=== PATIENT | male | born 1975 | race Hispanic/Latino ===

== ENCOUNTER → 2020-07-30 | Day surgery (SDC) | payer MEDICARE ==
[2020-07-27 12:32] LABS: BASOPHILS % 0.3 % (0.0-1.0); EOSINOPHILS # (AUTO) 0.1 (0.0-0.4); EOSINOPHILS % 0.9 % (0.0-6.0); HEMATOCRIT 39.3 % (38.2-49.6); HEMOGLOBIN 12.7 g/dL (14.0-18.0); LYMPHOCYTES # (AUTO) 1.3 (1.0-3.2); LYMPHOCYTES % 13.1 % (18.0-39.1); MEAN CORPUSCULAR HEMOGLOBIN 29.1 pg (28-32); MEAN CORPUSCULAR HGB CONC 32.3 g/dL (31-35); MEAN CORPUSCULAR VOLUME 89.9 fL (81-99); MONOCYTES # (AUTO) 0.6 (0.2-0.8); MONOCYTES % 5.8 % (4.4-11.3); NEUTROPHILS # (AUTO) 7.6 (2.1-6.9); NEUTROPHILS % 78.9 % (38.7-80.0); PLATELET COUNT 159 x10e3/uL (140-360); RED BLOOD COUNT 4.37 x10e6/uL (4.3-5.7); RED CELL DISTRIBUTION WIDTH 13.6 % (11.7-14.4)
[2020-07-27 12:42] LABS: INR 0.94; PROTHROMBIN TIME 13.1 seconds (11.9-14.5)
[2020-07-27 12:43] LABS: PARTIAL THROMBOPLASTIN TIME 27.4 seconds (23.8-35.5)
[2020-07-27 12:47] LABS: ANION GAP 15.9 mmol/L (8-16); CALCIUM 8.5 mg/dL (8.4-10.2); CREATININE, SERUM 2.36 mg/dL (0.72-1.25); POTASSIUM 4.9 mmol/L (3.5-5.1)
--- NOTE | 2020-07-27 13:23 | Diagnostic Imaging Report ---
Exam: CHEST 2 VIEWS Date: 07/27/2020 1:19 PM INDICATION: ^[id number] ^[id number] ^PRE OP Comparison: None FINDINGS: Lines/Tubes:None Lungs:The lungs are well inflated. No focal consolidation or pulmonary edema. Pleura:No pleural effusion. No pneumothorax. Heart/Mediastinum:The cardiomediastinal silhouette is normal in size and contour. Bones/Soft Tissues: No acute osseous abnormality. Mild multilevel degenerative changes of the spine are noted. Upper abdomen: Unremarkable. IMPRESSION: Negative for acute intrathoracic process. Signed by: Devon Young MD on 07/27/2020 1:19 PM
[~2020-07-30] MED LIST: ALBUTEROL0.63 MG/3; ASPIRIN81 MG; CEFTRIAXONE SOD 1 GM/NS 50 ML 50 ML IV ONE; FENTANYL CITRATE/PF 100MCG/2 ML INJ ONE; GABAPENTIN100 MG; HUMULIN R100 UNIT/2; IBUPROFEN400 MG PO; LIDOCAINE HCL 1% LOCAL INJ 20 ML VIAL ONE; LIDOCAINE HCL 2% LOCAL INJ 5 ML SDV VIAL INJ ONE; METOPROLOL; MYCOPHENOLATE250 MG PO; MYFORTIC360 MG PO; NORCO 10-325 T1 EACH PO; ONDANSETRON HCL INJ 2MG/ML 2ML 2 MG/ML VIAL ONE; PAROXETINE HCL20 MG PO; PRAVACHOL20 MG PO; PROGRAF1 MG PO; PROPOFOL IV EMULSION 10 MG/ML 20 ML VIAL ONE; SEVOFLURANE INHAL SOLN 250 ML PEN BTL ONE; TACROLIMUS0.5 GM PO; VANCOMYCIN HCL 1 GM VIAL ONE
[2020-07-30 12:30] VITALS: BP 139/73
--- NOTE | 2020-08-06 08:07 | Operative Report ---
DATE OF PROCEDURE: 07/30/2020 SURGEON: Lambert [facility] MD PREOPERATIVE DIAGNOSIS: Organic erectile dysfunction. POSTOPERATIVE DIAGNOSIS: Organic erectile dysfunction. OPERATIVE PROCEDURE PERFORMED: Placement of malleable penile prosthesis. ANESTHESIA: General anesthesia. ESTIMATED BLOOD LOSS: Minimal. INDICATIONS: Mr. Humble Gilman is a 45-year-old man with multiple medical problems including blindness and diabetes who presents for management of his erectile dysfunction. PROCEDURE IN DETAIL: The patient was brought into the operating room, placed in supine position. After initiation of general anesthesia, was prepped and draped in the usual sterile fashion. A Sandhu catheter was placed to identify the urethra and the catheter was clamped after his bladder was drained. A penoscrotal incision was made sharply and dissection was carried out through the layers of the penis. The urethra was reflected first to the right and subsequent to the left. A 3 cm corporal incisions were made in both corporal bodies and the corporal body was dilated with first the Metzenbaum and subsequently with dilators. The corporal body in this patient dilated easily up to 10, but was taut just past this. The total length of the corporal body measured 18 cm. An 18 cm tactile malleable prosthesis was then placed without difficulty. There was good position and it appeared to fill the corporal body well. The corporal body was then closed with a running PDS stitch. This was done on both the right and left sides. The corporal bodies were copiously irrigated with antibiotic solution prior to closure. With the prosthesis in place, the penoscrotal incision was closed in layers. The skin being closed using a running Monocryl stitch. The wound was then cleaned and dried and covered with Mastisol, Steri-Strips and sterile Tegaderm dressing. Anesthesia was reversed and the patient was transferred to bed and taken to the postanesthesia care unit in good condition. Of note, the needle and instrument count were correct at the conclusion of the case. Lambert Henderson MD HLW/MODL /[id number]
== END | disposition home or self-care (01) ==
LOC: OR 05:13
PROVIDERS: ATTEND Urology
DX: N52.8 Other male erectile dysfunction (principal); E29.1 Testicular hypofunction; E11.9 Type 2 diabetes mellitus without complications; I10 Essential (primary) hypertension; D68.9 Coagulation defect, unspecified; R53.1 Weakness; M54.2 Cervicalgia; M54.9 Dorsalgia, unspecified; R42 Dizziness and giddiness; E78.5 Hyperlipidemia, unspecified; H54.7 Unspecified visual loss; Z88.0 Allergy status to penicillin; Z91.040 Latex allergy status; Z01.810 Encounter for preprocedural cardiovascular examination; Z01.812 Encounter for preprocedural laboratory examination; Z01.818 Encounter for other preprocedural examination; Z20.828 Contact with and (suspected) exposure to other viral communicable diseases; Z79.82 Long term (current) use of aspirin; Z79.4 Long term (current) use of insulin; Z68.35 Body mass index [BMI] 35.0-35.9, adult; Z94.0 Kidney transplant status
CPT/HCPCS: 36415; 54400; 71046; 80048; 85025; 85610; 85730; 93005; C2622; J0696; J2001 ×2; J2405; J2704; J3010; J3370; U0002

== ENCOUNTER 2020-08-09 12:24 | Inpatient (IN) | payer MEDICARE, OTHER ==
[~2020-08-09] VITALS: Ht 175.3 cm; Wt 111.7 kg
[~2020-08-09 12:24] MED LIST changes: -CEFTRIAXONE SOD 1 GM/NS 50 ML 50 ML IV ONE; -FENTANYL CITRATE/PF 100MCG/2 ML INJ ONE; -LIDOCAINE HCL 1% LOCAL INJ 20 ML VIAL ONE; -LIDOCAINE HCL 2% LOCAL INJ 5 ML SDV VIAL INJ ONE; -MYFORTIC360 MG PO; -ONDANSETRON HCL INJ 2MG/ML 2ML 2 MG/ML VIAL ONE; -PROGRAF1 MG PO; -PROPOFOL IV EMULSION 10 MG/ML 20 ML VIAL ONE; -SEVOFLURANE INHAL SOLN 250 ML PEN BTL ONE; -VANCOMYCIN HCL 1 GM VIAL ONE
--- NOTE | 2020-08-09 14:30 | NUR ---
PT TO THE FLOOR FROM [facility]. PT'S VITALS WNL. PT DENIES NEEDS AT THIS TIME.
--- OUTSIDE RECORDS SUMMARY | 2020-08-09 14:30 | XMS REPORT | Clinical Summary ---
Author Author [facility]BI [facility] Address Unknown Phone Unavailable Care Team Providers Care Front Desk Team Member Name Role Phone Marycarmen Vyas MD PCP Allergies Comments Active Allergy Reactions Severity Noted Date Accelerated rash >10 yrs Penicillins Rash High 10/20/2012 Medications End Date Status Medication Sig Dispensed Refills Start Date Active sulfamethoxazole-trimetho Take 1 tablet 14 tablet 0 prim (BACTRIM DS) 800-160 (160 mg of 3 mg per tablet trimethoprim total) by mouth 3 (three) times a week. Active mycophenolate (MYFORTIC) Take 4 240 tablet 11 0 180 MG EC tablet tablets (720 4 mg total) by mouth 2 (two) times daily. Active mycophenolate (MYFORTIC) Take 180 mg 0 180 MG EC tablet by mouth 3 (three) times daily . Active aspirin 81 MG EC tablet Take 81 mg by 0 mouth daily. Active tacrolimus (PROGRAF) 1 MG Take 1 90 capsule 6 capsule capsule (1 mg 5 total) by mouth 2 (two) times daily Take 1mg in am and 2mg in pm.. Active NIFEdipine (PROCARDIA-XL) Take 60 mg by 0 60 MG (OSM) 24 hr tablet mouth daily. Active omeprazole (PRILOSEC) 40 Take 40 mg by 0 MG capsule mouth daily. Active gabapentin (NEURONTIN) Take 300 mg 0 300 MG capsule by mouth 3 (three) times daily. Active insulin 70/30, insulin Inject 0 NPH-insulin regular, subcutaneousl (HUMULIN 70/30) 100 y 2 (two) unit/mL (70-30) InPn times daily insulin pen before meals SLIDING SCALE tid . 11/18/2019 Discontinued lthauwaq-vcdn-KY-calcium Take 1 tablet 30 tablet 3 &mins 9 mg iron-400 mcg by mouth 3 Tab daily. 11/18/2019 Discontinued predniSONE (DELTASONE) 10 Take 10 mg by 0 05/19 7/201 MG tablet mouth daily. 3 11/18/2019 Discontinued esomeprazole (NEXIUM) 40 Take 40 mg by 0 MG capsule mouth daily. 11/18/2019 Discontinued tamsulosin (FLOMAX) 0.4 Take 1 30 capsule 3 mg Cp24 24 hr capsule capsule (0.4 3 mg total) by mouth daily. 11/18/2019 Discontinued clotrimazole (MYCELEX) 10 Place 10 mg 0 mg linda inside cheek 3 (three) times daily. 11/18/2019 Discontinued pentamidine (PENTAM) 300 Inhale 300 mg 0 mg inhalation solution by mouth via inhaler every 30 (thirty) days. 11/18/2019 Discontinued predniSONE (DELTASONE) 5 Take 5 mg by 0 MG tabletIndications: S/P mouth daily. kidney transplant 11/18/2019 Discontinued valGANciclovir (VALCYTE) Take 450 mg 0 450 mg tablet by mouth 2 (two) times daily. 11/18/2019 Discontinued doxycycline (VIBRAMYCIN) Take 100 mg 0 100 MG capsule by mouth 2 (two) times daily. 11/18/2019 Discontinued tacrolimus (PROGRAF) 1 MG Take 3 mg by 0 capsule mouth 2 (two) times daily. 11/18/2019 Discontinued mupirocin (BACTROBAN) 2 % Apply 0 ointment topically 2 (two) times daily. 11/18/2019 Discontinued chlorhexidine (HIBICLENS) Apply 0 4 % external liquid topically daily as needed. 11/18/2019 Discontinued diphenhydrAMINE Take 50 mg by 0 (BENADRYL) 50 MG capsule mouth every night as needed for Itching. Active Problems Problem Noted Date Nausea 03/07/2015 S/P kidney transplant 03/07/2015 Axillary lump 02/27/2014 Last Assessment & Plan: Resolved, no evidence of LAD on CT. Diarrhea 11/20/2013 Last Assessment & Plan: Improving. Continue to follow Rash 08/21/2013 Last Assessment & Plan: Will refer to dermatology for further e valuation. Elevated serum creatinine 08/12/2013 PEDRO (acute kidney injury) 07/17/2013 Acidosis 07/17/2013 Anemia 07/17/2013 Lower urinary tract infectious disease 07/17/2013 Overview: UPDATED BY ICD10 SNOMED/IMO UPDATES Status post kidney transplant 07/17/2013 Overview: ICD9 DX [employer] L ast Assessment & Plan: Stable allograft function. Will re-dos e based on levels. Continued monitoring of immunosuppression and all ograft function per his gear changer. Immunosuppression 07/10/2013 Overview: Patient on Cyclosporine 200/200. Ran o ut of his meds last week and was left to taking 1/4 of his prescribed do se. Level of 57 when checked on 07/05. - Reinforced strict compliance with med ication regimen, will have child welfare social worker discuss alternative regimen for obtaining medications L ast Assessment & Plan: Will order tacrolimus levels and dose i mmunosuppression accordingly Anemia associated with chronic renal failure 013 Last Assessment & Plan: Stable, Hbg of 10.6 today Renal osteodystrophy 05/25/2013 Hypertension, benign 05/25/2013 Last Assessment & Plan: Hemodynamically stable. continue curren t antihypertensive regimen DM (diabetes mellitus) Last Assessment & Plan: Continue tight blood glucose control wi th adherence to current medication regimen. HTN (hypertension) Last Assessment & Plan: Good control on current regimen. Deidra nue, with alteration per Dr. Vyas's recommendation. Blind History of tissue graft Overview: ICD9 DX [employer] Worker Encounters Care Team Description Date Type Specialty Marycarmen Vyas MD Pain in transplanted kidney 07/23/2020 [facility] Radiology Encounter System, Provider Not In Pain in transplanted kidney (Primary Dx) 07/20/2020 Outside Orders Central Scheduling Marycarmen Vyas MD Acute renal failure, unspecified acute r enal failure type (HCC) 11/18/2019 Hospital Encounter Marycarmen Vyas MD Acute renal failure, unspecified acute r enal failure type (HCC) (Primary Dx) 11/13/2019 Outside Orders Central Scheduling after 08/09/2019 Family History Medical History Relation Name Comments Diabetes Brother Diabetes Father Hypertension Father Diabetes Mother Diabetes Sister Relation Name Status Comments Brother Father Mother Sister Social History Date Tobacco Use Types Packs/Day Years Used Never Smoker Smokeless Tobacco: Never Used Drinks/Week oz/Week Comments Alcohol Use No Sex Assigned at Date Recorded Not on file Last Filed Vital Signs Reading Time Taken Comments Vital Sign 136/73 11/18/2019 2:00 PM [employer] Blood Pressure 68 11/18/2019 2:00 PM [employer]CH[employer] Pulse 36.6 C (97.9 F) 11/18/2019 11:08 AM [employer]ACHINE [employer]CH[employer] Temperature 13 11/18/2019 2:00 PM [employer]CH[employer] Respiratory Rate 99% 11/18/2019 2:00 PM [employer]CH[employer]IC Oxygen Saturation - - Inhaled Oxygen Concentration 108.3 kg (238 lb 11.2 oz) 11/18/2019 8:41 AM [employer]ACHINE MECH[employer]IC Weight 175.3 cm (5' 9") 11/18/2019 8:41 AM [employer] MACHINE MECH[employer]IC Height 35.25 11/18/2019 8:41 AM [employer]ACHINE MECH[employer]IC Body Mass Index Plan of Treatment Health Maintenance Due Date Last Done Comments PNEUMOCOCCAL VACCINE 0-64 1980 YRS (1 of 3 - PCV13) DIABETIC EYE EXAM 1984 DIABETIC FOOT EXAM 1984 URINE MICROALBUMIN 1984 MEDICARE ANNUAL WELLNESS 01/17/2009 (YEAR 2 or FIRST YEAR if no IPPE) LIPID PANEL 2009 HEMOGLOBIN A1C 01/17/2014 07/20/2013, 07/17/2012 INFLUENZA VACCINE (#1) 2020 Implants Device Identifier Shelf Expiration Date Model / Serial / L ot Implanted Type Area Manufactur er [id number] / / [id number] Stent,Uret Polaris 5fr X 10cm - Uro Stent Ureter [employer] [id number] [employer] Implanted: Qty: 1 on 05/26/2013 by Chiara Amaral MD at [facility] Procedures Comments Procedure Name Priority Date/Time Associated Diag nosis US TRANSPLANT KIDNEY Routine 07/23/2020 11:30 AM [employer]ACHINE [employer]CH[employer]IC CBC W/PLT COUNT & AUTO Routine 11/18/2019 DIFFERENTIAL 9:33 AM [employer]ACHINE MECH[employer]IC CBC W/PLT COUNT & AUTO Routine 11/18/2019 DIFFERENTIAL 9:33 AM [employer] MACHINE MECH[employer]IC APTT Routine 11/18/2019 9:33 AM [employer] MACHINE MECHANIC PROTHROMBIN TIME/INR Routine 11/18/2019 9:33 AM [employer]AK[employer] MACHINE MECHANIC after 08/09/2019 Results * US transplant kidney (07/23/2020 11:30 AM BAKERY MACHINE MECHANIC) Specimen Narrative Performed At FINAL REPORT [facility] TECHNIQUE: Grayscale, color Doppler, an d spectral Doppler ultrasound of the transplant kidney and renal vasc ulature. INDICATION: 45-year-old man with other complication of kidney transplant. COMPARISON: Renal transplant ultrasound 03/07/2015. FINDINGS: TRANSPLANT KIDNEY: Transplant kidney is located in the right lower quadrant and measures 12 x 6.9 x 5.7 cm with cortical thickness of 1.4 cm. No hydronephrosis. No solid mas s. No perinephric fluid collection. VASCULATURE: Iliac artery, arterial ivory stomosis, and renal artery are patent with peak systolic velocities of 136 cm/s, 131 cm/s, and 82 cm/s, respectively. Resistive indices t hroughout the transplant kidney are within normal limits. Accele ration times throughout the transplant kidney are within normal daley its. Renal vein, venous anastomosis, and iliac vein are patent. BLADDER: Unremarkable. IMPRESSION: Unremarkable appearance of the transpla nt kidney. Unremarkable Doppler evaluation of the renal vasculature. Signed: Beena Mariscal MD Report Verified Date/Time: 07/23/2020 13:48:56 Procedure Note Interface, External Ris In - 07/23/2020 1:51 PM [employer]ACHINE MECH[employer]IC FINAL REPORT TECHNIQUE: Grayscale, color Doppler, and spectral Doppler ultrasound of the transplant kidney and renal vasculature. INDICATION: 45-year-old man with other complication of kidney transplant. COMPARISON: Renal transplant ultrasound 03/07/2015. FINDINGS: TRANSPLANT KIDNEY: Transplant kidney is located in the right lower quadrant and measures 12 x 6.9 x 5.7 cm with cortical thickness of 1.4 cm. No hydronephrosis. No solid mass . No perinephric fluid collection. VASCULATURE: Iliac artery, arterial anastomosis, and renal artery are patent with peak systolic velocities of 136 cm/s, 131 cm/s, and 82 cm/s, respectively. Resistive indices throughout the transplant kidney are within normal limits. Acceleration times throughout the transplant kidney are within normal limits. Renal vein, venous anastomosis, and iliac vein are patent. BLADDER: Unremarkable. IMPRESSION: Unremarkable appearance of the transplant kidney. Unremarkable Doppler evaluation of the renal vasculature. Signed: Beena Mariscal MD Report Verified Date/Time: 07/23/2020 13:48:56 Performing Organization Address City/State/Zipcode Ph one Number GE RIS * CBC with platelet count + automated diff (11/18/2019 9:33 AM BAKERY MACHINE MECHANIC) WBC 7.2 3.5 - 10.5 K/L [facility] RBC 4.89 4.63 - 6.08 M/L [facility] Hemoglobin 13.9 13.7 - 17.5 GM/DL [facility] Hematocrit 42.5 40.1 - 51.0 % [facility] MCV 86.9 79.0 - 92.2 fL [facility] MCH 28.4 25.7 - 32.2 pg [facility] MCHC 32.7 32.3 - 36.5 GM/DL [facility] RDW 14.1 11.6 - 14.4 % [facility] Platelets 148 (L) 150 - 450 K/CU MM [facility] MPV 11.7 9.4 - 12.4 fL [facility] nRBC 0 0 - 0 /100 WBC [facility] % Neutros 66 % [facility] % Lymphs 22 % [facility] % Monos 9 % [facility] % Eos 2 % [facility] % Baso 0 % [facility] # Neutros 4.70 1.78 - 5.38 K/L [facility] # Lymphs 1.60 1.32 - 3.57 K/L [facility] # Monos 0.63 0.30 - 0.82 K/L [facility] # Eos 0.17 0.04 - 0.54 K/L [facility] # Baso 0.02 0.01 - 0.08 K/L [facility] Immature 0 0 - 1 % [facility] Specimen Blood Performing Organization Address City/[facility] Ph one Number [address] [facility] * aPTT (11/18/2019 9:33 AM BAKERY MACHINE MECHANIC) PTT 29.1 22.5 - 36.0 seconds [facility] Specimen Blood Performing Organization Address [facility] one Number [address] [facility] * Prothrombin time/INR (11/18/2019 9:33 AM BAKERY MACHINE MECHANIC) Protime 13.8 11.9 - 14.2 seconds [facility] INR 1.1 <=5.9 [facility] Specimen Blood Narrative Performed At Effective 02/13/2019: PT Reference Range Change [facility] New: 11.9-14.2 Previous: 11.7-14.7 [facility] MEDICAL TITI TER RECOMMENDED COUMADIN/WARFARIN INR THERA PY RANGES STANDARD DOSE: 2.0-3.0 Includes: PROP HYLAXIS for venous thrombosis, systemic embolization; TREATMENT for venous thro mbosis and/or pulmonary embolus. HIGH RISK: Target INR is 2.5-3.5 for pa tients wiht mechanical heart valves. Performing Organization Address [facility] Ph one Number [address] [facility] after 08/09/2019 Insurance Type Payer Benefit Subscriber ID Effective Phone Address Plan / Dates Group Medicare MEDICARE MEDICARE A [id number] 2008-P B resent Medicaid Non-Contracted MEDICAID - MEDICAID MGD MEDICAID [id number] [employer] Present Advance Directives For more information, please contact: [phone] Date Inactivated Comments Code Status Date Activated 03/08/2015 11:40 PM Full Code 03/07/2015 11:17 AM This code status was determined by: Patient 08/15/2013 12:01 AM All possible means of suppor t, including: cardiac massage, mechanical ventilation, and defibrillation will be used to support life. Code ONE 08/12/2013 9:04 PM 08/02/2013 9:24 PM All possible means of suppor t, including: cardiac massage, mechanical ventilation, and defibrillation will be used to support life. Code ONE 07/31/2013 1:13 PM 07/31/2013 1:13 PM All possible means of suppor t, including: cardiac massage, mechanical ventilation, and defibrillation will be used to support life. Code ONE 07/19/2013 2:12 PM 07/19/2013 2:12 PM All possible means of suppor t including;cardiac massage, mechanical ventilation, and defibrillation will be used to support life. Code ONE 07/18/2013 6:40 PM
--- OUTSIDE RECORDS SUMMARY | 2020-08-09 14:30 | XMS REPORT | Continuity of Care Document ---
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 Role Phone [employer] Unavailable Un available Problems Problem Status Onset Date Classification Date Reported Comments Source Insomnia, unspecified Active Problem 06/17/2016 [place] Santiago Diabetes with renal manifestations, type II or unspecified type, uncontrolled Active Problem 06/17/2016 [place] Sn[place]ago End stage renal disease Active Problem 06/17/2016 Modesto Santiago Polyneuropathy in diabetes Act chrissy Problem Mod[place] Santiago Nephritis and nephropathy, not specified as acute or chronic, with other specified pathological lesion in kidney, in diseases classified elsewhere Active Prob aristides 06/17/2016 Modesto Santiago Diabetes with neurological manifestation s, type II or unspecified type, uncontrolled Active Problem 06/17/2016 Modesto Santiago Acute frontal sinusitis Active Problem 06/17/2016 Modesto Santiago Cellulitis and abscess of leg, except foot Active Problem 06/17/2016 Modesto Santiago Hypertensive chronic kidney disease, jeana ign, with chronic kidney disease stage I through stage IV, or unspecified Active Problem Modesto Santiago Other iatrogenic hypotension A ctive Problem Modesto Santiago Generalized anxiety disorder A ctive Problem Modesto Santiago Dizziness Active Problem 06/17/2016 Modesto Santiago Acute pharyngitis Active Problem 06/17/2016 Modesto Santiago Hearing loss Active Problem 06/17/2016 Modesto Santiago Congestive heart failure, unspecified Active Problem Modesto Santiago Benign hypertensive heart disease with heart failure Active Problem 06/17/2016 Modesto Santiago Cellulitis and abscess of leg Active Problem Modesto Santiago Methicillin resistant Staphylococcus aureus infection Active Problem 06/17/2016 Modesto Santiago Insomnia Active Problem 06/17/2016 Modesto Santiago Skin lesion, infected Active Problem 06/17/2016 Modesto Santiago Skin lesions Active Problem 06/17/2016 Modesto Santiago Blindness Active Problem 06/17/2016 Modesto Santiago Abscess of back Active Problem 06/17/2016 Modesto Santiago Type II or unspecified type diabetes jignesh litus without mention of complication, not stated as uncontrolled Active Problem Modesto Santiago End-stage renal disease Active Problem 06/17/2016 Modesto Santiago Abscess of right axilla Active Problem 06/17/2016 Modesto Santiago Orthostatic hypotension Active Problem 06/17/2016 Modesto Santiago Renal transplant recipient Act chrissy Problem Modesto Santiago Peripheral angiopathy in diseases classified elsewhere Active Problem 06/17/2016 Modesto Santiago DM circ dis type II Active Problem 06/17/2016 Modesto Santiago Toe amputation status Active Problem 06/17/2016 Modesto Santiago Diarrhea Active Problem 06/17/2016 Modesto Santiago Impotence of organic origin Ac tive Diagnosis 0 02/04/2014 Modesto Santiago Esophageal reflux Active Problem 06/17/2016 Modesto Santiago Dermatitis Active Problem 06/17/2016 Modesto Santiago Abscess of buttock Active Problem 06/17/2016 Modesto Santiago Essential (primary) hypertension Active Problem Modesto Santiago DM neuro manif type II Active Problem 06/17/2016 Modesto Santiago Polyneuropathy in diabetes Act chrissy Problem Modesto Santiago Candidiasis of skin and nails Active Problem Modesto Santiago Otalgia of right ear Active Problem 06/17/2016 Modesto Santiago Candidiasis Active Problem 06/17/2016 Modesto Santiago Muscle weakness (generalized) Active Problem Modesto Santiago Carpal tunnel syndrome of right wrist Active Problem Modesto Santiago Otitis externa Active Problem 06/17/2016 Modesto Santiago Generalized muscle weakness Ac tive Diagnosis 0 02/06/2016 Modesto Santiago Hidradenitis Active Diagnosis 02/06/2016 Modesto Santiago Otalgia of both ears Active Problem 06/17/2016 Modesto Santiago Eye socket infection Active Problem 06/17/2016 Modesto Santiago Left otitis media Active Problem 06/17/2016 Modesto Santiago Furuncle Active Diagnosis 05/12/2016 Modesto Santiago Medications Medication Details Route Status Patient Instructions Ordering Provider Order Date Source Myfortic 3 tablet Orally Active 180 MG Orally twice a d ay (bid[facility]/15/[facility] [place] Santiago Diphen/Atropine 1 tablet as ne eded for diarrhea Orally Active 2.5 Orally twice a day [facility] 04/20/2016 Modesto Santiago Ibuprofen 1 tablet Orally Active 600 Orally Three times a day every 6 hours PRN Pain [facility] 04/19/2016 Mod[place] Santiago Azithromycin 2 tablets on the first day, then 1 tablet daily for 4 days Orally Active 250 MG Orally Once a day [facility] 04/19/2016 Modesto Santiago Fluconazole 1 tablet Orally Active 200 MG Orally Once a da y [facility] 02/05/2016 Mod[place] Santiago Gabapentin 1 capsule Orally Active 100 mg Orally three sawyer es a day (tid) [facility] 02/05/2016 Modesto Santiago Bactrim DS 1 tablet Orally Active 800-160 MG Orally Twice a day [facility] 02/05/2016 Modesto Santiago Nystatin 1 application to affe cted area Externally Active 670549 UNIT/GM Externally Twice a day [facility] 02/05/2016 Modesto Santiago Nystop 1 to affected area Externally Active 397809 UNIT/GM Externally Twice a day [facility] 01/08/2016 Modesto Santiago Triamcinolone Acetonide 1 appl ication to affected area Externally Active 0.5 % Externally Twice a day [facility] 11/17/2015 Modesto Santiago Pen Clio 01/31" as directed NA Active 30G X 8 MM twice a day (bid) [facility] 10/20/2015 Modetso Santiago Midodrine HCl 1 tablet Orally Active 2.5 MG Orally Three sawyer es a day [facility] 10/13/2015 Modesto Santiago Bactrim DS 1 tablet Orally Active 800-160 MG Orally twice a day (bid[facility] 04/30/2015 [place] Santiago Trazodone HCl 1 tablet Orally Active 50 mg Orally once every night [facility] 01/12/2015 Modesto Santiago Mupirocin 1 application to aff ected area Externally Active 2 % Externally twice a day (bid) [facility] 01/12/2015 Modesto Santiago Gmate Test Strips as directed NA Active testing 3-4 times per d ay [facility] 12/25/2014 Modesto Santiago Cholestyramine 1 packet mixed with water or non- carbonated drink Orally Active 4 GM Orally Twice a day [facility] 10/20/2014 Modesto Santiago Meclizine HCl 1 tablet Orally Active 25 MG Orally four times a day (qid) as needed (prn) for dizziness [facility] 09/05/2014 Modesto Santiago Sulfamethoxazole-TMP DS 1 tabl et Orally Active 800-160 MG Orally twice a day (bid) [facility] 02/13/2014 Modesto Santiago Viagra 1 tablet as needed Orally Active 50 mg Orally Once a day [facility] 02/03/2014 Modesto Santiago One Touch/One Touch II Starter as directed In Vitro Active In Vitro [facility] 11/25/2013 Modesto Santiago One Touch/One Touch II Starter as directed In Vitro Active [facility] 11/25/2013 Modesto Santiago Zithromax Z-Mukund 2 tablets on the first day, then 1 tablet daily for 4 days Orally Active 250 MG Orally Once a day [facility] 07/17/2013 Modesto Santiago Dextromethorphan-Guaifenesin 5 ml as needed Orally Active 15-200 MG/5ML Orally every 6 hrs for cough [facility] 07/17/2013 [place] Santiago Levemir Flexpen as directed Subcutaneous Active 100 UNIT/ML Subcutaneous [facility] 06/24/2013 Modesto Santiago NovoLog Mix 70/30 Flexpen 30u am, 25u qpm Subcutaneous Active (70-30) 100 UNIT/ML Subcutaneous as directed [facility] 04/23/2013 Modesto Santiago Kionex as directed Orally Active 15 GM/60ML Orally [facility] Noe hael E [facility] Clotrimazole 1 linda Mouth/Throat Active 10 MG Mouth/Throat Three times a day [facility] Mod[place] Green [facility] Nexium 1 capsule Orally Active 40 MG Orally Once a day [facility] Noe hael E [facility] Carvedilol 1 tablet with food Orally Active 25 MG Orally Twice a day [facility] Mod[place] Green [facility] Myfortic 4 tablet Orally Active 180 MG Orally twice a d ay (bid) [facility] Modesto E [facility] HydrALAZINE HCl 1 tablet Orally Active 100 mg Orally three sawyer es a day (tid) [facility] Modesto Green [facility] Terazosin HCl 1 capsule Orally Active 5 MG Orally Once a day [facility] Mod[place] Green [facility] Sulfamethoxazole-TMP DS 1 tabl et Orally Active 800-160 MG Orally every day (qd) [facility] Mod[place] Green [facility] PredniSONE 1 tablet with food or milk Orally Active 5 MG Orally Once a day [facility] Modesto Porrasxbterri Meclizine HCl 1 tablet Orally Active 25 MG Orally four times a day (qid) as needed (prn) for dizziness [facility] [place] Green [facility] Sodium Bicarbonate 1 tablet Orally Active 650 MG Orally Three times a day [facility] [place] Green [facility] Linezolid 1 tablet Orally Active 600 MG Orally every 12 hrs [facility] Mod[place] Green [facility] Aspir-81 1 tablet Orally Active 81 MG Orally Once a day [facility] Noe hael E [facility] Prograf Unknown Orally Active 1 MG Orally [facility] Noe hael E [facility] Humalog Mix 75/25 KwikPen 30 U nits in the morning and 30 units in the evening Subcutaneous Active (75-25) 100 UNIT/ML Sub cutaneous as directed [facility] Mod[place] Green [facility] Pravastatin Sodium 1 tablet Orally Active 40 MG Orally Once a day [facility] Modesto E [facility] Bactrim DS 1 tablet Orally Active 800-160 MG Orally Twice a day [facility] Modesto E [facility] NIFEdipine ER Osmotic tome jose a tableta todos los martino Oral Active 60 MG Oral Once a day [facility] [place] Green [facility] Ciprodex 4 drops into affected ear Otic Active 0.3-0.1 % Otic Twice a day [facility] Modesto Peter [facility] Hydrocodone-Acetaminophen 1 ta blet as needed Orally Active 10-325 MG Orally every 6 hrs [facility] [place] Green [facility] Clindamycin HCl 2 capsules Orally Active 150 MG Orally every 8 hrs [facility] [place] Green [facility] Meclizine HCl TOME JOSE A TABLETA POR VIA ORAL CUATRO VECES AL INO CUANDO SEA NECESARIO NA Active 25 MG [facility] [place] Green [facility] Allergies, Adverse Reactions, Alerts Substance Category Reaction Severity Reaction type Status Date Reported Comments Source penicillin Adverse Reaction Info Not Available Adverse Reaction Active 05/10/2016 [place] Peter [facility] Immunizations No Data Provided for This Section Results No Data Provided for This Section Pathology Reports No Data Provided for This Section Diagnostic Reports No Data Provided for This Section Consultation Notes No Data Provided for This Section Discharge Summaries No Data Provided for This Section History and Physicals No Data Provided for This Section Vital Signs Vital Sign Value Date Comments Source Weight 230 05/10/2016 [place] Porrasxbaum Height 69 0 05/10/2016 [place] E [facility] Temperature Oral (F) 96.1 F 05/10/2016 [place] Peter [facility] Heart Rate 72 05/10/2016 [place] E [facility] Diastolic (mm Hg) 74 05/10/2016 [place] E [facility] Systolic (mm Hg) 128 05/10/2016 [place] Green [facility] Weight 230 04/19/2016 [place] Green [facility] Height 69 0 04/19/2016 [place] E [facility] Temperature Oral (F) 97.1 F 04/19/2016 [place] Peter [facility] Heart Rate 74 04/19/2016 [place] E [facility] Diastolic (mm Hg) 84 04/19/2016 [place] E [facility] Systolic (mm Hg) 136 04/19/2016 [place] Green [facility] Weight 215 02/05/2016 [place] E [facility] Height 69 0 02/05/2016 [place] E [facility] Temperature Oral (F) 97.1 F 02/05/2016 [place] E [facility] Heart Rate 82 02/05/2016 [place] E [facility] Diastolic (mm Hg) 86 02/05/2016 [place] E [facility] Systolic (mm Hg) 126 02/05/2016 [place] E [facility] Weight 215 01/08/2016 [place] E [facility] Height 69 0 01/08/2016 [place] E [facility] Temperature Oral (F) 97.8 F 01/08/2016 [place] E [facility] Heart Rate 84 01/08/2016 [place] E [facility] Diastolic (mm Hg) 68 01/08/2016 [place] E [facility] Systolic (mm Hg) 134 01/08/2016 [place] E [facility] Weight 215 11/17/2015 [place] E [facility] Height 69 0 11/17/2015 [place] E [facility] Temperature Oral (F) 96.8 F 11/17/2015 [place] E [facility] Heart Rate 82 11/17/2015 [place] E [facility] Diastolic (mm Hg) 86 11/17/2015 [place] E [facility] Systolic (mm Hg) 126 11/17/2015 [place] E [facility] Weight 231 04/30/2015 [place] E [facility] Height 69 0 04/30/2015 [place] E [facility] Temperature Oral (F) 98.0 F 04/30/2015 [place] E [facility] Heart Rate 72 04/30/2015 [place] E [facility] Diastolic (mm Hg) 72 04/30/2015 [place] E [facility] Systolic (mm Hg) 118 04/30/2015 [place] E [facility] Weight 230 09/05/2014 [place] E [facility] Height 69 1 11/06/2013 [place] E [facility] Temperature Oral (F) 97.8 F 09/05/2014 [place] E [facility] Heart Rate 66 09/05/2014 [place] E [facility] Diastolic (mm Hg) 84 09/05/2014 [place] E [facility] Systolic (mm Hg) 126 09/05/2014 [place] E [facility] Weight 228 02/03/2014 [place] E [facility] Height 69 0 02/03/2014 [place] E [facility] Temperature Oral (F) 98.7 F 02/03/2014 [place] E [facility] Heart Rate 64 02/03/2014 [place] E [facility] Diastolic (mm Hg) 82 02/03/2014 [place] E [facility] Systolic (mm Hg) 120 02/03/2014 [place] E [facility] Weight 215 11/22/2013 [place] E [facility] Height 69 0 11/22/2013 Mod[place] Santiago Temperature Oral (F) 97.8 F 11/22/2013 Mod[place] Santiago Heart Rate 64 11/22/2013 Modesto Santiago Diastolic (mm Hg) 84 11/22/2013 Modesto Santiago Systolic (mm Hg) 122 11/22/2013 Modesto Santiago Weight 215 11/22/2013 Modesto Santiago Height 69 0 11/22/2013 Modesto Santiago Temperature Oral (F) 97.8 F 11/22/2013 Modesto Santiago Heart Rate 64 11/22/2013 Modesto Santiago Diastolic (mm Hg) 84 11/22/2013 Modesto Santiago Systolic (mm Hg) 122 11/22/2013 Modetso Santiago Encounters Location Location Details Encounter Type Encounter Number Reason For Visit Attending Provider ADM Date DC Date Status Source Modesto Santiago DO, PA [employer] supplies [id number] 11/23/19 14 11/22/2013 Modesto Santiago DO, [place] [employer] [id number] 11/23/19 14 11/22/2013 Modesto Santiago DO, PA [employer] [id number] 11/23/19 14 11/22/2013 Modesto Santiago DO, [place] [employer] supplies [id number] 11/23/19 14 11/22/2013 Modesto Santiago DO, PA [employer] supplies [id number] 11/23/19 14 11/22/2013 Modesto Santiago DO, PA [employer] supplies [id number] 11/23/19 14 11/22/2013 Modesto Santiago DO, [place] [employer] supplies [id number] 11/23/19 14 11/22/2013 Modesto Santiago DO, PA [employer]me supplies [id number] 11/23/19 14 11/22/2013 Modesto Santiago DO PA dme supplies [id number] 11/23/19 14 11/22/2013 Modesto Santiago DO PA dme supplies [id number] 11/23/19 14 11/22/2013 Modesto Santiago DO PA dme supplies [id number] 11/23/19 14 11/22/2013 Modesto Santiago DO PA dme supplies [id number] 11/23/19 14 11/22/2013 Modesto Santiago DO PA dme supplies [id number] 11/23/19 14 11/22/2013 Modesto Santiago DO PA dme supplies [id number] 11/23/19 14 11/22/2013 Modesto Santiago DO PA dme supplies [id number] 11/23/19 14 11/22/2013 Modesto Santiago DO PA dme supplies [id number] 11/23/19 14 11/22/2013 Modesto Santiago DO PA dme supplies [id number] 11/23/19 14 11/22/2013 Modesto Santiago DO PA dme supplies [id number] 11/23/19 14 11/22/2013 Modesto Santiago DO PA dme supplies [id number] 11/23/19 14 11/22/2013 Modesto Santiago DO PA dme supplies [id number] 11/23/19 14 11/22/2013 Modesto Santiago DO PA dme supplies [id number] 11/23/19 14 11/22/2013 Modesto Santiago DO PA dme supplies [id number] 11/23/19 14 11/22/2013 Modesto Santiago DO, PA dme supplies [id number] 11/23/19 14 11/22/2013 Modesto Santiago DO PA dme supplies [id number] 11/23/19 14 11/22/2013 Modesto Santiago DO PA dme supplies [id number] 11/23/19 14 11/22/2013 Modesto Green. Isirenate DO, PA Unknown [id number] 11/26/19 14 11/25/2013 Modesto Snowdenrenate Obrien Isirenate DO, PA Unknown [id number] 11/26/19 14 11/25/2013 [place] Salvador Camille Isirenate DO, PA Unknown [id number] 11/26/19 14 11/25/2013 Modesto Santiago DO, PA Unknown [id number] 11/26/19 14 11/25/2013 Modesto Santiago DO, [place] Unknown [id number] 11/26/19 14 11/25/2013 [place] Salvador Camille Pamela DO, PA Unknown [id number] 11/26/19 14 11/25/2013 [place] Salvador PeterPreeti Santiago DO, PA Unknown [id number] 11/26/19 14 11/25/2013 Modesto Santiago DO, PA Unknown [id number] 11/26/19 14 11/25/2013 Modesto Santiago DO, [place] Unknown [id number] 11/26/19 14 11/25/2013 Modesto Santiago DO, PA Unknown [id number] 11/26/19 14 11/25/2013 Modesto Delunaaurenate Modesto Camille Isirenate DO, PA Unknown [id number] 11/26/19 14 11/25/2013 [place] Peter Isirenate Obrien Isirenate DO, PA Unknown [id number] 11/26/19 14 11/25/2013 Modesto Snowdenrenate Modesto GrenePreeti Isirenate DO, PA Unknown [id number] 11/26/19 14 11/25/2013 [place] GrenePreeti Isirenate DO, PA Unknown [id number] 11/26/19 14 11/25/2013 Modesto Snowdenrenate Modesto GreenPreeti Isirenate DO, PA Unknown [id number] 11/26/19 14 11/25/2013 Modesto Snowdenrenate Modesto Snowdenrenate DO, PA Unknown [id number] 11/26/19 14 11/25/2013 [place] Peter Isirenate Obrien Isirenate DO, PA Unknown [id number] 11/26/19 14 11/25/2013 Modesto Snowdenrenate Modesto Snowdenrenate DO, PA Unknown [id number] 11/26/19 14 11/25/2013 Modesto Santiago DO, PA Unknown [id number] 11/26/19 14 11/25/2013 Modesto Santiago DO, PA Unknown [id number] 11/26/19 14 11/25/2013 Modesto Santiago DO, PA Unknown [id number] 11/26/19 14 11/25/2013 Modesto Santiago DO, PA Unknown [id number] 11/26/19 14 11/25/2013 Modesto Santiago DO, PA Unknown [id number] 11/26/19 14 11/25/2013 Modesto Santiago DO, PA Unknown [id number] 11/26/19 14 11/25/2013 Modesto Santiago DO, PA sore throat [id number] 02/04/20 14 02/03/2014 Modesto Santiago DO, PA sore throat [id number] 02/04/20 14 02/03/2014 Modesto Santiago DO, PA sore throat [id number] 02/04/20 14 02/03/2014 Modesto Santiago DO, PA sore throat [id number] 02/04/20 14 02/03/2014 Modesto Santiago DO, PA sore throat [id number] 02/04/20 14 02/03/2014 Modesto Santiago DO, PA sore throat [id number] 02/04/20 14 02/03/2014 Modesto Santiago Modesto GreenPreeti Snowdenrenate DO, PA sore throat [id number] 02/04/20 14 02/03/2014 Modesto Santiago DO, PA sore throat [id number] 02/04/20 14 02/03/2014 Modesto Santiago DO, PA sore throat [id number] 02/04/20 14 02/03/2014 Modesto Santiago DO, PA sore throat [id number] 02/04/20 14 02/03/2014 Modesto Santiago DO, PA sore throat [id number] 02/04/20 14 02/03/2014 Modesto Santiago DO, PA sore throat [id number] 02/04/20 14 02/03/2014 Modesto Santiago DO, PA sore throat [id number] 02/04/20 14 02/03/2014 Modesto Santiago DO, PA sore throat [id number] 02/04/20 14 02/03/2014 Modesto Santiago DO, PA sore throat [id number] 02/04/20 14 02/03/2014 Modesto Santiago DO, PA sore throat [id number] 02/04/20 14 02/03/2014 Modesto Santiago DO, PA sore throat [id number] 02/04/20 14 02/03/2014 Modesto Santiago DO, PA sore throat [id number] 02/04/20 14 02/03/2014 Modesto Santiago DO, PA sore throat [id number] 02/04/20 14 02/03/2014 Modesto Santiago DO, PA sore throat [id number] 02/04/20 14 02/03/2014 Modesto Santiago DO, PA sore throat [id number] 02/04/20 14 02/03/2014 Modesto Santiago DO, PA sore throat [id number] 02/04/20 14 02/03/2014 Modesto Santiago DO, PA sore throat [id number] 02/04/20 14 02/03/2014 Modesto Santiago DO, [place] Hearing loss [id number] 09/05/20 14 09/05/2014 Modesto Santiago DO, PA Hearing loss [id number] 09/05/20 14 09/05/2014 Modesto Santiago DO, PA Hearing loss [id number] 09/05/20 14 09/05/2014 Modesto Santiago DO, PA Hearing loss [id number] 09/05/20 14 09/05/2014 Modesto Santiago DO, PA Hearing loss [id number] 09/05/20 14 09/05/2014 Modesto Santiago DO, PA Hearing loss [id number] 09/05/20 14 09/05/2014 Modesto Santiago DO, PA Hearing loss [id number] 09/05/20 14 09/05/2014 Modesto Santiago DO, PA Hearing loss [id number] 09/05/20 14 09/05/2014 Modesto Santiago DO, PA Hearing loss [id number] 09/05/20 14 09/05/2014 Modesto Santiago DO, PA Hearing loss [id number] 09/05/20 14 09/05/2014 Modesto Santiago DO, PA Hearing loss [id number] 09/05/20 14 09/05/2014 Modesto Sanitago DO, PA Hearing loss [id number] 09/05/20 14 09/05/2014 Modesto Santiago DO, PA Hearing loss [id number] 09/05/20 14 09/05/2014 Modesto Santiago DO, PA Hearing loss [id number] 09/05/20 14 09/05/2014 Modesto Santiago DO, PA Hearing loss [id number] 09/05/20 14 09/05/2014 Modesto Santiago DO, PA Hearing loss [id number] 09/05/20 14 09/05/2014 Modesto Santiago DO, PA Hearing loss [id number] 09/05/20 14 09/05/2014 Modesto Santiago DO, PA Hearing loss [id number] 09/05/20 14 09/05/2014 Modesto Santiago DO, PA Hearing loss [id number] 09/05/20 14 09/05/2014 Modesto Santiago DO, PA Hearing loss [id number] 09/05/20 14 09/05/2014 Modesto Santiago DO, PA Hearing loss [id number] 09/05/20 14 09/05/2014 Modesto Santiago DO, PA Hearing loss [id number] 09/05/20 14 09/05/2014 Modesto Santiago DO, PA Refill [id number] 10/20/19 15 10/20/2014 Modesto Santiago DO, [place] Refill [id number] 10/20/19 15 10/20/2014 Modesto Santiago DO, PA Refill [id number] 10/20/19 15 10/20/2014 Modesto Santiago DO, PA Refill [id number] 10/20/19 15 10/20/2014 Modesto Santiago DO, PA Refill [id number] 10/20/19 15 10/20/2014 Modesto Santiago DO, [place] Refill [id number] 10/20/19 15 10/20/2014 Modesto Santiago DO, [place] Refill [id number] 10/20/19 15 10/20/2014 Modesto Santiago DO, [place] Refill [id number] 02/02/10/20/2014 Modesto Santiago DO, [place] Refill [id number] 10/20/19 15 10/20/2014 Modesto Santiago DO, [place] Refill [id number] 10/20/19 15 10/20/2014 Modesto Santiago DO, PA Refill [id number] 10/20/19 15 10/20/2014 Modesto Santiago DO, PA Refill [id number] 10/20/19 15 10/20/2014 Modesto Santiago DO, [place] Refill [id number] 10/20/19 15 10/20/2014 Modesto Santiago DO, [place] Refill [id number] 10/20/19 15 10/20/2014 Modesto Santiago DO, [place] Refill [id number] 10/20/19 15 10/20/2014 Modesto Santiago DO, [place] Refill [id number] 10/20/19 15 10/20/2014 Modesto Santiago DO, [place] Refill [id number] 10/20/19 15 10/20/2014 Modesto Santiago DO, [place] Refill [id number] 10/20/19 15 10/20/2014 Modesto Santiago DO, [place] Refill [id number] 10/20/19 15 10/20/2014 Modesto Santiago DO, [place] Refill [id number] 10/20/19 15 10/20/2014 Modesto Santiago DO, [place] Refill [id number] 10/20/19 15 10/20/2014 Modesto Santiago DO, PA Follow-Up [id number] 12/13/19 15 12/12/2014 Modesto Santiago DO, PA Follow-Up [id number] 12/13/19 15 12/12/2014 Modesto Santiago DO, PA Follow-Up [id number] 12/13/19 15 12/12/2014 Modesto Santiago DO, PA Follow-Up [id number] 12/13/19 15 12/12/2014 Modesto Santiago DO, PA Follow-Up [id number] 12/13/19 15 12/12/2014 Modesto Santiago DO, PA Follow-Up [id number] 03/27/12/12/2014 Modesto Santiago DO, PA Follow-Up [id number] 12/13/19 15 12/12/2014 Modesto Santiago DO, PA Follow-Up [id number] 12/13/19 15 12/12/2014 Modesto Santiago DO, PA Follow-Up [id number] 12/13/19 15 12/12/2014 Modesto Santiago DO, PA Follow-Up [id number] 12/13/19 15 12/12/2014 Modesto Santiago DO, PA Follow-Up [id number] 12/13/19 15 12/12/2014 Modesto Santiago DO PA Follow-Up [id number] 12/13/19 15 12/12/2014 Modesto Santiago DO, PA Follow-Up [id number] 12/13/19 15 12/12/2014 Modesto Santiago DO, PA Follow-Up [id number] 12/13/19 15 12/12/2014 Modesto Santiago DO, PA Follow-Up [id number] 12/13/19 15 12/12/2014 Modesto Santiago DO PA Follow-Up [id number] 12/13/19 15 12/12/2014 Modesto Santiago DO, PA Follow-Up [id number] 12/13/19 15 12/12/2014 Modesto Santiago DO PA Follow-Up [id number] 12/13/19 15 12/12/2014 Modesto Santiago DO, PA Follow-Up [id number] 12/13/19 15 12/12/2014 Modesto Santiago DO, PA Follow-Up [id number] 12/13/19 15 12/12/2014 Modesto Santiago DO PA Refill [id number] 12/26/19 15 12/25/2014 Modesto Santiago DO, PA Refill [id number] 12/26/19 15 12/25/2014 Modesto Santiago DO PA Refill [id number] 12/26/19 15 12/25/2014 Modesto Santiago DO PA Refill [id number] 12/26/19 15 12/25/2014 Modesto Santiago DO, [place] Refill [id number] 12/26/19 15 12/25/2014 Modesto Santiago DO, PA Refill [id number] 12/26/19 15 12/25/2014 Modesto Santiago DO, [place] Refill [id number] 12/26/19 15 12/25/2014 Modesto Santiago DO, PA Refill [id number] 12/26/19 15 12/25/2014 Modesto Santiago DO, PA Refill [id number] 12/26/19 15 12/25/2014 Modesto Santiago DO, PA Refill [id number] 12/26/19 15 12/25/2014 Modesto Santiago DO, PA Refill [id number] 12/26/19 15 12/25/2014 Modesto Santiago DO, [place] Refill [id number] 12/26/19 15 12/25/2014 Modesto Santiago DO, PA Refill [id number] 12/26/19 15 12/25/2014 Modesto Santiago DO, PA Refill [id number] 12/26/19 15 12/25/2014 Modesto Santiago DO, PA Refill [id number] 12/26/19 15 12/25/2014 Modesto Santiago DO, PA Refill [id number] 12/26/19 15 12/25/2014 Modesto Santiago DO, [place] Refill [id number] 12/26/19 15 12/25/2014 Modesto Santiago DO, PA Refill [id number] 12/26/19 15 12/25/2014 Modesto Santiago DO, PA Refill [id number] 12/26/19 15 12/25/2014 Modesto Santiago DO, [place] Refill [id number] 12/26/19 15 12/25/2014 Modesto Santiago DO, PA Unknown [id number] 01/13/20 15 01/12/2015 Modesto Santiago DO, [place] Unknown [id number] 01/13/20 15 01/12/2015 Modesto Santiago DO, [place] Unknown [id number] 01/13/20 15 01/12/2015 Modesto [place] Unknown [id number] 01/13/20 15 01/12/2015 Modesto Santiago DO, [place] Unknown [id number] 01/13/20 15 01/12/2015 Modesto Santaigo DO, PA Unknown [id number] 01/13/20 15 01/12/2015 Modesto Santiago DO, PA Unknown [id number] 01/13/20 15 01/12/2015 Modesto Santiago DO, [place] Unknown [id number] 01/13/20 15 01/12/2015 Modesto Santiago DO, [place] Unknown [id number] 01/13/20 15 01/12/2015 Modesto Santiago DO, [place] Unknown [id number] 01/13/20 15 01/12/2015 Modesto Santiago DO, PA Unknown [id number] 01/13/20 15 01/12/2015 Modesto Santiago DO, [place] Unknown [id number] 01/13/20 15 01/12/2015 Modesto Santiago DO, PA Unknown [id number] 01/13/20 15 01/12/2015 Modesto Santiago DO, PA Unknown [id number] 01/13/20 15 01/12/2015 Modesto Santiago DO PA Unknown [id number] 01/13/20 15 01/12/2015 Modesto Santiago DO, PA Unknown [id number] 01/13/20 15 01/12/2015 Modesto Santiago DO, [place] Unknown [id number] 01/13/20 15 01/12/2015 Modesto Santiago DO, [place] Unknown [id number] 01/13/20 15 01/12/2015 Modesto Santiago DO, PA Unknown [id number] 01/13/20 15 01/12/2015 Modesto Santiago DO, PA Unknown [id number] 01/13/20 15 01/12/2015 Modesto Santiago DO, PA hand surgery [id number] 04/30/20 15 04/30/2015 Modesto Santiago DO, PA hand surgery [id number] 04/30/20 15 04/30/2015 Modesto Santiago DO, PA hand surgery [id number] 04/30/20 15 04/30/2015 Modesto Santiago DO, PA hand surgery [id number] 04/30/20 15 04/30/2015 Modesto Santiago DO PA hand surgery [id number] 04/30/20 15 04/30/2015 Modesto Santiago DO PA hand surgery [id number] 04/30/20 15 04/30/2015 Modesto Santiago DO PA hand surgery [id number] 04/30/20 15 04/30/2015 Modesto Santiago DO PA hand surgery [id number] 04/30/20 15 04/30/2015 Modesto Santiago DO PA hand surgery [id number] 04/30/20 15 04/30/2015 Modesto Santiago DO PA hand surgery [id number] 04/30/20 15 04/30/2015 Modesto Santiago DO PA hand surgery [id number] 04/30/20 15 04/30/2015 Modesto Santiago DO PA hand surgery [id number] 04/30/20 15 04/30/2015 Modesto Santiago DO PA hand surgery [id number] 04/30/20 15 04/30/2015 Modesto Santiago DO PA hand surgery [id number] 04/30/20 15 04/30/2015 Modesto Santiago DO, PA hand surgery [id number] 04/30/20 15 04/30/2015 Modesto Santiago DO PA hand surgery [id number]-[id number] 04/30/20 15 04/30/2015 Modesto Santiago DO PA hand surgery [id number]-[id number]-5sr38bb0m1j7 04/30/20 15 04/30/2015 Modesto Santiago DO, PA hand surgery [id number] 04/30/20 15 04/30/2015 Modesto Santiago DO, PA hand surgery [id number] 04/30/20 15 04/30/2015 Modesto Santiago DO, PA hand surgery [id number] 04/30/20 15 04/30/2015 Modesto Santiago DO, PA Unknown [id number] 05/18/20 15 05/18/2015 Modesto Santiago DO, PA Unknown [id number] 05/18/20 15 05/18/2015 Modesto Santiago DO, PA Unknown [id number] 05/18/20 15 05/18/2015 Modesto Snowdenm, DO, [place] Unknown [id number] 05/18/20 15 05/18/2015 Modesto Santiago DO, PA Unknown [id number] 05/18/20 15 05/18/2015 Modesto Green Isirenate Porrasgailterri DO, PA Unknown [id number] 05/18/20 15 05/18/2015 Modesto Green Isirenate Obrien Mikieterri DO, PA Unknown [id number] 05/18/20 15 05/18/2015 Modesto Green Isirenate Porrasgailterri DO, PA Unknown [id number] 05/18/20 15 05/18/2015 Modesto Green Isirenate Porrasgailterri DO, PA Unknown [id number] 05/18/20 15 05/18/2015 Modesto Green Isirenate Santiago DO, PA Unknown [id number] 05/18/20 15 05/18/2015 Modesto Peter Isirenate Obrien Mikieterri DO, PA Unknown [id number] 05/18/20 15 05/18/2015 Modesto Peter Isirenate Obrien Isirenate DO, PA Unknown [id number] 05/18/20 15 05/18/2015 Modesto Santiago Modesto Obrien Isirenate DO, PA Unknown [id number] 05/18/20 15 05/18/2015 Modesto Santiago DO PA Unknown [id number] 05/18/20 15 05/18/2015 Modesto Santiago DO PA Unknown [id number] 05/18/20 15 05/18/2015 Modesto Santiago DO PA Unknown [id number] 05/18/20 15 05/18/2015 Modesto Santiago DO PA Unknown [id number] 05/18/20 15 05/18/2015 Modesto Santiago DO PA Unknown [id number] 05/18/20 15 05/18/2015 Modesto Santiago DO PA Unknown [id number] 05/18/20 15 05/18/2015 Modesto Santiago DO PA Refill [id number] 06/29/20 15 06/29/2015 Modesto Santiago DO PA Refill [id number] 06/29/20 15 06/29/2015 Modesto Santiago DO PA Refill [id number] 06/29/20 15 06/29/2015 Modesto Santiago DO PA Refill [id number] 06/29/20 15 06/29/2015 Modesto Santiago DO, PA Refill [id number] 06/29/20 15 06/29/2015 Modesto Santiago DO, PA Refill [id number] 06/29/20 15 06/29/2015 Modesto Santiago DO, PA Refill [id number] 06/29/20 15 06/29/2015 Modesto Santiago DO, [place] Refill [id number] 06/29/20 15 06/29/2015 Modesto Santiago DO, [place] Refill [id number] 06/29/20 15 06/29/2015 Modesto Santiago DO, PA Refill [id number] 06/29/20 15 06/29/2015 Modesto Santiago DO, PA Refill [id number] 06/29/20 15 06/29/2015 Modesto Santiago DO, PA Refill [id number] 06/29/20 15 06/29/2015 Modesto Santiago DO, [place] Refill [id number] 06/29/20 15 06/29/2015 Modesto Santiago DO, PA Refill [id number] 06/29/20 15 06/29/2015 Modesto Santiago DO PA Refill [id number] 06/29/20 15 06/29/2015 Modesto Santiago DO PA Refill [id number] 06/29/20 15 06/29/2015 Modesto Santiago DO PA Refill [id number] 06/29/20 15 06/29/2015 Modesto Santiago DO PA Refill [id number] 06/29/20 15 06/29/2015 Modesto Santiago DO, PA Refill [id number] 06/29/20 15 06/29/2015 Modesto Santiago DO, PA New Prescription [id number] 10/22/19 16 10/22/2015 Modesto Santiago DO, PA New Prescription [id number] 10/22/19 16 10/22/2015 Modesto Santiago DO, PA New Prescription [id number] 10/22/19 16 10/22/2015 Modesto Santiago DO, PA New Prescription [id number]-[id number] 10/22/19 16 10/22/2015 Modesto Santiago DO, PA New Prescription [id number] 10/22/19 16 10/22/2015 Modesto Santiago DO, PA New Prescription [id number] 10/22/19 16 10/22/2015 Modesto Santiago DO, PA New Prescription [id number] 10/22/19 16 10/22/2015 Modesto Santiago DO, PA New Prescription [id number]-my60231gp6lz 10/22/19 16 10/22/2015 Modesto Santiago DO, PA New Prescription [id number]-[id number] 10/22/19 16 10/22/2015 Modesto Santiago DO, PA New Prescription [id number] 10/22/19 16 10/22/2015 Modesto Santiago DO, PA New Prescription [id number] 10/22/19 16 10/22/2015 Modesto Santiago DO, PA New Prescription [id number] 10/22/19 16 10/22/2015 Modesto Santiago DO, PA New Prescription [id number] 10/22/19 16 10/22/2015 Modesto Santiago DO, PA New Prescription [id number] 10/22/19 16 10/22/2015 Modesto Santiago DO, PA New Prescription [id number]-[id number] 10/22/19 16 10/22/2015 Modesto Santiago DO, PA New Prescription [id number]-[id number] 10/22/19 16 10/22/2015 Modesto Santiago DO, PA New Prescription [id number]-d680zg0yy7j1 10/22/19 16 10/22/2015 Modesto Santiago DO, PA New Prescription [id number] 10/22/19 16 10/22/2015 Modesto Santiago DO, PA Needs call back from Medical Staff [id number] 10/27/2015 10/27/2015 Modesto Santiago DO, PA Needs call back from Medical Staff [id number] 10/27/2015 10/27/2015 Modesto Santiago DO, PA Needs call back from Medical Staff [id number] 10/27/2015 10/27/2015 Modesto Santiago DO, PA Needs call back from Medical Staff [id number] 10/27/2015 10/27/2015 Modesto Santiago DO, PA Needs call back from Medical Staff [id number] 10/27/2015 10/27/2015 Modesto Santiago DO, PA Needs call back from Medical Staff [id number] 10/27/2015 10/27/2015 Modesto Santiago DO, PA Needs call back from Medical Staff [id number] 10/27/2015 10/27/2015 Modesto Santiago DO, PA Needs call back from Medical Staff [id number] 10/27/2015 10/27/2015 Modesto Santiago DO, PA Needs call back from Medical Staff [id number] 10/27/2015 10/27/2015 Modesto Santiago DO, PA Needs call back from Medical Staff [id number] 10/27/2015 10/27/2015 Modesto Santiago DO, PA Needs call back from Medical Staff [id number] 10/27/2015 10/27/2015 Modesto Santiago DO, PA Needs call back from Medical Staff [id number] 10/27/2015 10/27/2015 Modesto Santiago DO, PA Needs call back from Medical Staff [id number] 10/27/2015 10/27/2015 Modesto Santiago DO, PA Needs call back from Medical Staff [id number] 10/27/2015 10/27/2015 Modesto Santiago DO, PA Needs call back from Medical Staff [id number] 10/27/2015 10/27/2015 Modesto Santiago DO, PA Needs call back from Medical Staff [id number] 10/27/2015 10/27/2015 Modesto Santiago DO, PA Needs call back from Medical Staff [id number] 10/27/2015 10/27/2015 Modesto Santiago DO, PA Unknown [id number] 10/29/19 16 10/29/2015 Modesto Santiago DO, PA Unknown [id number] 10/29/19 16 10/29/2015 Modesto Santiago DO, [place] Unknown [id number] 10/29/19 16 10/29/2015 Modesto Santiago DO, [place] Unknown [id number] 10/29/19 16 10/29/2015 Modesto Santiago DO, [place] Unknown [id number] 10/29/19 16 10/29/2015 Modesto Santiago DO, PA Unknown [id number] 10/29/19 16 10/29/2015 Modesto Santiago DO, PA Unknown [id number] 10/29/19 16 10/29/2015 Modesto Santiago DO, PA Unknown [id number] 10/29/19 16 10/29/2015 Modesto Santiago DO, PA Unknown [id number] 10/29/19 16 10/29/2015 Modesto Santiago DO, [place] Unknown [id number] 10/29/19 16 10/29/2015 Modesto Santiago DO, [place] Unknown [id number] 10/29/19 16 10/29/2015 Modesto Santiago DO, [place] Unknown [id number] 10/29/19 16 10/29/2015 Modesto Santiago DO, [place] Unknown [id number] 10/29/19 16 10/29/2015 Modesto Santiago DO, [place] Unknown [id number] 10/29/19 16 10/29/2015 Modesto Santiago DO, [place] Unknown [id number] 10/29/19 16 10/29/2015 Modesto Santiago DO, [place] Unknown [id number] 10/29/19 16 10/29/2015 Modesto Santiago DO, [place] Unknown [id number] 10/30/19 16 10/30/2015 Modesto Santiago DO, [place] Unknown [id number] 10/30/19 16 10/30/2015 Modesto Santiago DO, [place] Unknown [id number] 10/30/19 16 10/30/2015 Modesto Santiago DO, [place] Unknown [id number] 10/30/19 16 10/30/2015 Modesto Santiago DO, [place] Unknown [id number] 10/30/19 16 10/30/2015 Modesto [place] DO[place] Unknown [id number] 10/30/19 16 10/30/2015 Modesto Santiago DO, [place] Unknown [id number] 10/30/19 16 10/30/2015 Modesto Santiago DO, [place] Unknown [id number] 10/30/19 16 10/30/2015 Modesto Santiago DO, [place] Unknown [id number] 10/30/19 16 10/30/2015 Modesto Santiago DO, [place] Unknown [id number] 10/30/19 16 10/30/2015 Modesto Santiago DO, [place] Unknown [id number] 10/30/19 16 10/30/2015 Modesto Santiago DO, [place] Unknown [id number] 10/30/19 16 10/30/2015 Modesto Santiago DO, [place] Unknown [id number] 10/30/19 16 10/30/2015 Modesto Santiago DO, [place] Unknown [id number] 10/30/19 16 10/30/2015 Modesto Santiago DO, [place] Unknown [id number] 10/30/19 16 10/30/2015 Modesto Santiago DO, [place] Unknown [id number] 10/30/19 16 10/30/2015 Modesto Santiago DO, [place] [employer] [id number] 11/09/19 16 11/09/2015 Modesto Santiago DO [place] [employer] [id number] 11/09/19 16 11/09/2015 Modesto Santiago DO [place] [employer] [id number] 11/09/19 16 11/09/2015 Modesto Santiago DO [place] [employer] [id number] 11/09/19 16 11/09/2015 Modesto Santiago DO, PA [facility] [id number] 11/09/19 16 11/09/2015 Modesto Santiago DO, PA [facility] [id number] 11/09/19 16 11/09/2015 Modesto Santiago DO, PA [facility] [id number] 11/09/19 16 11/09/2015 Modesto Santiago DO, PA [facility] [id number] 11/09/19 16 11/09/2015 Modesot Santiago , PA [facility] [id number] 11/09/19 16 11/09/2015 Modesto Santiago DO, PA [facility] [id number] 11/09/19 16 11/09/2015 Modesto Santiago , PA [facility] [id number] 11/09/19 16 11/09/2015 Modesto Santiago , PA [facility] [id number] 11/09/19 16 11/09/2015 Modesto Santiago DO, PA [facility] [id number] 11/09/19 16 11/09/2015 Modesto Santiago PA [facility] [id number] 11/09/19 16 11/09/2015 Modesto Santiago DO, [place] Unknown [id number] 11/17/19 16 11/17/2015 Modesto Santiago DO, [place] Unknown [id number] 11/17/19 16 11/17/2015 Modesto Santiago DO [place] Unknown [id number] 11/17/19 16 11/17/2015 Modesto Santiago DO, [place] Unknown [id number] 11/17/19 16 11/17/2015 Modesto Santiago DO, [place] Unknown [id number] 11/17/19 16 11/17/2015 Modesto Santiago DO, [place] Unknown [id number] 11/17/19 16 11/17/2015 Modesto Santiago DO [place] Unknown [id number] 11/17/19 16 11/17/2015 Modesto Santiago DO [place] Unknown [id number] 11/17/19 16 11/17/2015 Modesto Santiago DO [place] Unknown [id number] 11/17/19 16 11/17/2015 Modesto Santiago DO, PA [facility] [id number] 11/17/19 16 11/17/2015 Modesto Santiago DO PA [facility] [id number] 11/17/19 16 11/17/2015 Modesto Santiago DO PA [facility] [id number] 11/17/19 16 11/17/2015 Modesto Santiago DO PA [facility] [id number] 11/17/19 16 11/17/2015 Modesto Santiago DO [facility] [id number] 11/17/19 16 11/17/2015 Modesto Santiago DO PA [facility] [id number] 11/17/19 16 11/17/2015 Modesto Santiago DO PA [facility] [id number] 11/17/19 16 11/17/2015 Modesto Santiago DO PA [facility] [id number] 11/17/19 16 11/17/2015 Modesto Santiago DO PA [facility] [id number] 11/17/19 16 11/17/2015 Modesto Santiago DO PA [facility] [id number] 11/17/19 16 11/17/2015 Modesto Santiago DO, [place] [employer] [id number] 11/17/19 16 11/17/2015 Modesto Santiago DO [place] Unknown [id number] 11/17/19 16 11/17/2015 Modesto Santiago DO [place] Unknown [id number] 11/17/19 16 11/17/2015 Modesto Santiago DO [place] Unknown [id number] 11/17/19 16 11/17/2015 Modesto Santiago DO, [place] [employer] [id number] 11/17/19 16 11/17/2015 Modesto Santiago DO, [place] [employer] [id number] 11/17/19 16 11/17/2015 Modesto Santiago DO [place] Unknown [id number] 11/19/19 16 11/19/2015 Modesto Santiago DO [place] Unknown [id number] 11/19/19 16 11/19/2015 Modesto Santiago DO [place] Unknown [id number] 11/19/19 16 11/19/2015 Modesto Santiago DO [place] Unknown [id number] 11/19/19 16 11/19/2015 Modesto Santiago DO [place] Unknown [id number] 11/19/19 16 11/19/2015 Modesto Santiago DO [place] Unknown [id number] 11/19/19 16 11/19/2015 Modesto Santiago DO [place] Unknown [id number] 11/19/19 16 11/19/2015 Modesto Santiago DO, [place] Unknown [id number] 11/19/19 16 11/19/2015 Modesto Santiago DO, [place] Unknown [id number] 11/19/19 16 11/19/2015 Modesto Santiago DO, [place] Unknown [id number] 11/19/19 16 11/19/2015 Modesto Santiago DO, [place] Unknown [id number] 11/19/19 16 11/19/2015 Modesto Santiago DO [place] Work in, ear pain [id number] 01/08/20 16 01/08/2016 Modesto Santiago DO, [place] Work in, ear pain [id number] 01/08/20 16 01/08/2016 Modesto Santiago DO, PA Work in, ear pain [id number] 01/08/20 16 01/08/2016 Modesto Santiago DO, PA Work in, ear pain [id number] 01/08/20 16 01/08/2016 Modesto Santiago DO, PA Work in, ear pain [id number] 01/08/20 16 01/08/2016 Modesto Santiago DO, PA Work in, ear pain [id number] 01/08/20 16 01/08/2016 Modesto Santiago DO, PA Work in, ear pain [id number] 01/08/20 16 01/08/2016 Modesto Santiago DO, PA Work in, ear pain [id number] 01/08/20 16 01/08/2016 Modesto Santiago DO, PA Work in, ear pain [id number] 01/08/20 16 01/08/2016 Modesto Santiago DO, PA Work in, ear pain [id number] 01/08/20 16 01/08/2016 Modesto Santiago DO, PA medications [id number] 01/08/20 16 01/08/2016 Modesto Santiago DO, PA medications [id number] 01/08/20 16 01/08/2016 Modesto Santiago DO, PA medications [id number] 01/08/20 16 01/08/2016 Modesto Santiago DO, PA medications [id number] 01/08/20 16 01/08/2016 Modesto Santiago DO, PA medications [id number] 01/08/20 16 01/08/2016 Modesto Santiago DO, PA medications [id number] 01/08/20 16 01/08/2016 Modesto Santiago DO, PA medications [id number] 01/08/20 16 01/08/2016 Modesto Santiago DO, PA medications [id number] 01/08/20 16 01/08/2016 Modesto Santiago DO, PA medications [id number] 01/08/20 16 01/08/2016 Modesto Santiago DO, PA numb legs [id number] 02/05/20 16 02/05/2016 Modesto Santiago DO, PA numb legs [id number] 02/05/20 16 02/05/2016 Modesto Santiago DO PA numb legs [id number] 02/05/20 16 02/05/2016 Modesto Santiago DO PA numb legs [id number] 02/05/20 16 02/05/2016 Modesto Santiago DO PA numb legs [id number] 02/05/20 16 02/05/2016 Modesto Santiago DO PA numb legs [id number] 02/05/20 16 02/05/2016 Modesto Santiago DO, PA numb legs [id number] 02/05/20 16 02/05/2016 Modesto Santiago DO PA numb legs [id number] 02/05/20 16 02/05/2016 Modesto Santiago DO PA Refill [id number] 04/14/20 16 04/14/2016 Modesto Santiago DO PA Refill [id number] 04/14/20 16 04/14/2016 Modesto Santiago DO PA Refill [id number] 04/14/20 16 04/14/2016 Modesto Santiago DO, PA Refill [id number] 04/14/20 16 04/14/2016 Modesto Santiago DO PA Refill [id number] 04/14/20 16 04/14/2016 Modesto Santiago DO PA Refill [id number] 04/14/20 16 04/14/2016 Modesto Santiago DO PA Refill [id number] 04/14/20 16 04/14/2016 Modesto Santiago DO PA fill out form from [facility] [id number] 04/19/2016 04/19/2016 Modesto Santiago DO PA fill out form from [facility] [id number] 04/19/2016 04/19/2016 Modesto Santiago DO PA fill out form from [facility] [id number] 04/19/2016 04/19/2016 Modesto Santiago DO PA fill out form from [facility] [id number] 04/19/2016 04/19/2016 Modesto Santiago DO PA fill out form from [facility] [id number] 04/19/2016 04/19/2016 Modesto Santiago DO PA fill out form from [facility] [id number] 04/19/2016 04/19/2016 Modesto Santiago DO PA Unknown [id number] 04/20/20 16 04/20/2016 Modesto Santiago DO PA Unknown [id number] 04/20/20 16 04/20/2016 Modesto Santiago DO PA Unknown [id number] 04/20/20 16 04/20/2016 Modesto Santiago DO PA Unknown [id number] 04/20/20 16 04/20/2016 Modesto Santiago DO PA Unknown [id number] 04/20/20 16 04/20/2016 Modesto Santiago DO PA Referral [id number] 04/20/20 16 04/20/2016 Modesto Santiago DO PA Referral [id number] 04/20/20 16 04/20/2016 Modesto Santiago DO PA Referral [id number] 04/20/20 16 04/20/2016 Modesto Santiago DO PA Referral [id number] 04/20/20 16 04/20/2016 Modesto Santiago DO PA Refill [id number] 05/06/20 16 05/06/2016 Modesto Delunaalmarenate Santiago DO, PA Refill [id number] 05/06/20 16 05/06/2016 Modesto Green Vernterrell Santiago DO, PA Unknown [id number] 05/10/20 16 05/10/2016 Modesto Santiago DO, PA Unknown [id number] 05/10/20 16 05/10/2016 Modesto Porrasgailterri Santiago DO, PA Unknown [id number] 05/10/20 16 05/10/2016 Modesto Porrasroserenate Santiago, , PA Unknown [id number] 06/15/20 16 06/15/2016 Modesto Green Pamela Procedures No Data Provided for This Section Assessment and Plan No Data Provided for This Section Plan of Care No Data Provided for This Section Social History Social History Date Source Social History ElementQualifiersDate Rep orted Tobacco Use: . Are you a: never smoker May 10, 2016 Use of recreational / street drugs? . Answer: No May 10, 2016 Do you exercise? . Answer: Yes, Type: biking May 10, 2016 Do you drink alcohol? . Status: No May 10, 2016 05/10/2016 Modesto Green Pamela Family History Value Date S ource QualifierDescriptionCommentDate Reported Maternal Grandmother Comment not available May 10, 2016 Paternal Grandmother Comment not available May 10, 2016 Siblings alive Comment not available May 10, 2016 Maternal Grandfather Comment not available May 10, 2016 Children Comment not available May 10, 2016 Father high blood pressure, high cholesterol May 10, 2016 Paternal Grandfather Comment not available May 10, 2016 Mother high blood pressure, high cholesterol, diabetes May 10, 2016 Other: Comment not available May 10, 2016 05/13/2016 Modesto Santiago QualifierDescriptionCommentDate Reported Maternal Grandmother Comment not available May 10, 2016 Paternal Grandmother Comment not available May 10, 2016 Siblings alive Comment not available May 10, 2016 Maternal Grandfather Comment not available May 10, 2016 Children Comment not available May 10, 2016 Father high blood pressure, high cholesterol May 10, 2016 Paternal Grandfather Comment not available May 10, 2016 Mother high blood pressure, high cholesterol, diabetes May 10, 2016 Other: Comment not available May 10, 2016 05/12/2016 Modesto Santiago QualifierDescriptionCommentDate Reported Maternal Grandmother Comment not available February 05, 2016 Paternal Grandmother Comment not available February 05, 2016 Siblings alive Comment not available February 05, 2016 Maternal Grandfather Comment not available February 05, 2016 Children Comment not available February 05, 2016 Father high blood pressure, high cholesterol February 05, 2016 Paternal Grandfather Comment not available February 05, 2016 Mother high blood pressure, high cholesterol, diabetes February 05, 2016 Other: Comment not available February 05, 2016 02/06/2016 Modesto Santiago QualifierDescriptionCommentDate Reported Maternal Grandmother Comment not available Apr 30, 2015 Paternal Grandmother Comment not available Apr 30, 2015 Siblings alive Comment not available Apr 30, 2015 Maternal Grandfather Comment not available Apr 30, 2015 Children Comment not available Apr 30, 2015 Father high blood pressure, high cholesterol Apr 30, 2015 Paternal Grandfather Comment not available Apr 30, 2015 Mother high blood pressure, high cholesterol, diabetes Apr 30, 2015 Other: Comment not available Apr 30, 2015 05/01/2015 Modesto Santiago QualifierDescriptionCommentDate Reported Maternal Grandmother Comment not available Sep 05, 2014 Paternal Grandmother Comment not available Sep 05, 2014 Siblings alive Comment not available Sep 05, 2014 Maternal Grandfather Comment not available Sep 05, 2014 Father high blood pressure, high cholesterol Sep 05, 2014 Mother high blood pressure, high cholesterol, diabetes Sep 05, 2014 Paternal Grandfather Comment not available Sep 05, 2014 09/11/2014 oMdesto Santiago QualifierDescriptionCommentDate Reported Maternal Grandmother Comment not available February 03, 2014 Paternal Grandmother Comment not available February 03, 2014 Siblings alive Comment not available February 03, 2014 Maternal Grandfather Comment not available February 03, 2014 Father high blood pressure, high cholesterol February 03, 2014 Mother high blood pressure, high cholesterol, diabetes February 03, 2014 Paternal Grandfather Comment not available February 03, 2014 02/04/2014 Modesto Santiago QualifierDescriptionCommentDate Reported Maternal Grandmother Comment not available November 22, 2013 Paternal Grandmother Comment not available November 22, 2013 Siblings alive Comment not available November 22, 2013 Maternal Grandfather Comment not available November 22, 2013 Father high blood pressure, high cholesterol November 22, 2013 Mother high blood pressure, high cholesterol, diabetes November 22, 2013 Paternal Grandfather Comment not available November 22, 2013 11/23/2013 Modesto Santiago Advance Directives No Data Provided for This Section Functional Status No Data Provided for This Section
--- OUTSIDE RECORDS SUMMARY | 2020-08-09 14:30 | XMS REPORT | Continuity of Care Document ---
Author Author [facility] t Organization [facility] Address [address] [place] [address] Phone Unavailable Care Team Providers Care Remote Sensing Specialist Name Role Phone TALAVERADOV MONAE PCP Unavailable Andrea JOHNSON Attphys Unavailable Myranda Vyas MD Attphys System, Not In Provider Attphys Unavailable MYRANDA VYAS Attphys Unavailable MYRANDA VYAS Admphys Unavailable Payers Payer Name Policy Type Policy Number Effective Date Expiration Date S greg MEDICAREMEDICARE A [id number]-PresentMedicare [id number] 2008 00:00:00 [facility] r MEDICAID - [place] [id number] 2019- PresentMedicaid Non-Contracted [id number] 2020 00:00:00 [facility] Problems Condition Name Condition Details Condition Category Status Onset Date Resolution Date Last Treatment Date Treating Clinician Comments Source Nausea Nausea Disease Active 2015-03-07 00:00:00 [facility] S/P kidney transplant S/P kidney transplant Disease Active 201 01-22-20 00:00:00 [facility] Axillary lump Axillary lump Disease Active 2014-02-27 00:00:00 Last Assessment & Plan: Resolved, no evidence of LAD on CT. [facility] Diarrhea Diarrhea Disease Active 2013-11-20 00:00:00 Last Assessment & Plan: Improving. Continue to follow [facility] Rash Rash Disease Active 2013-08-21 00:00:00 Last Assessment & Plan: Will refer to dermatology for further evaluation. [facility] Elevated serum creatinine Elevated serum creatinine Disease Ac tive 2013-08-12 00:00:00 [facility] PEDRO (acute kidney injury) PEDRO (acute kidney injury) Disease Ac tive 2013-07-17 00:00:00 [facility] Acidosis Acidosis Disease Active 2013-07-17 00:00:00 [facility] Anemia Anemia Disease Active 2013-07-17 00:00:00 [facility] Lower urinary tract infectious disease Lower urinary tract i nfectious disease Disease Active 2013-07-17 00:00:00 Overv iew: UPDATED BY ICD10 SNOMED/IMO UPDATES [facility] Status post kidney transplant Status post kidney transplant Disease Active 2013-07-17 00:00:00 Overview: IC D9 DX ReplacerLast Assessment & Plan: Stable allograft function. Will re-dose based on levels. Continued monitoring of immunosuppression and allograft function per his architect manager. [facility] Immunosuppression Immunosuppression Disease Active 2013-07-10 00:00:00 Overview: Patient on Cyclosporine 200/200. Ran out of his meds last week and was left to taking 1/4 of his prescribed dose. Level of 57 when checked on 07/05. - Reinforced strict compliance with medication regimen, will have social work associate discuss alternative regimen for obtaining medicationsLast Assessment & Plan: Will order tacrolimus levels and dose immunosuppression accordingly [facility] Anemia associated with chronic renal failure Anemia as sociated with chronic renal failure Disease Active 2013-05-25 00:00:00 Last Assessment & Plan: Stable, Hbg of 10.6 today [facility] Renal osteodystrophy Renal osteodystrophy Disease Active 00:00:00 [facility] Hypertension, benign Hypertension, benign Disease Active 00:00:00 Last Assessment & Plan: Hemo dynamically stable. continue current antihypertensive regimen [facility] DM (diabetes mellitus) DM (diabetes mellitus) Disease Active Last Assessment & Plan: Continue tight blood glucose control with adherence to current medication regimen. [facility] HTN (hypertension) HTN (hypertension) Disease Active Last Assessment & Plan: Good control on current regimen. Continue, with alteration per Dr. Vyas's recommendation. 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 [facility] Insomnia, unspecified Inso mnia, unspecified Active Problem 06/17/2016 Mod[place] Snatiago Problem Active 2016-06-17 02:08:1 3 [facility] Diabetes with renal manifestations, type II or unspeci fied type, uncontrolled Diabetes with renal manifestations, type II or unspecified type, uncontrolled Active Problem 06/17/2016 Modesto Santiago Problem Active 2016-06-17 02:08:13 [facility] End stage renal disease End stage renal disease Active Problem 06/17/2016 Modesto Santiago Problem Active 20 03-06-30 02:08:13 [facility] Polyneuropathy in diabetes Eulalio yneuropathy in diabetes Active Problem 06/17/2016 Modesto Santiago Problem Active 2016-06-17 02:08:13 [facility] Nephritis and nephropathy, not specified as acute or chronic, with other specified pathological lesion in kidney, in diseases classified elsewhere Nephritis and nephropathy, not specified as acute or chronic, with other specified pathological lesion in kidney, in diseases classified elsewhere Active Problem 06/17/2016 [place]esto Santiago Problem Active 2016-06-17 02:08:13 [facility] Diabetes with neurological manifestation s, type II or unspecified type, uncontrolled Diabetes with ne urological manifestations, type II or unspecified type, uncontrolled Active Problem 06/17/2016 Modesto Santiago Problem Active 2016-06-17 02:08:13 Saqib chu [address] Acute frontal sinusitis Acut e frontal sinusitis Active Problem 06/17/2016 Modesto Santiago Problem Active 20 03-06-30 02:08:13 [facility] Cellulitis and abscess of leg, except foot Cellulitis and abscess of leg, except foot Active Problem 06/17/2016 Modesto Santiago Problem Active 2016-06-17 02:08:13 [facility] Hypertensive chronic kidney disease, jeana ign, with chronic kidney disease stage I through stage IV, or unspecified Hypertensive chr onic kidney disease, benign, with chronic kidney disease stage I through stage IV, or unspecified Active Problem 06/17/2016 Modesto Santiago Problem Active 2016-06-17 02:08:13 [facility] Other iatrogenic hypotension O ther iatrogenic hypotension Active Problem 06/17/2016 Modesto Santiago Problem Active 2016-06-17 02:08:13 [facility] Generalized anxiety disorder G eneralized anxiety disorder Active Problem 06/17/2016 Modesto Santiago Problem Active 2016-06-17 02:08:13 [facility] Dizziness Dizz iness Active Problem 06/17/2016 Modesto Santiago Problem Active 2016-06-17 02:08:13 [facility] Acute pharyngitis Acut e pharyngitis Active Problem 06/17/2016 Modesto Santiago Problem Active 2016-06-17 02:08:13 [facility] Hearing loss Hear ing loss Active Problem 06/17/2016 Modesto Santiago Problem Active 2016-06-17 02:08:13 [facility] Congestive heart failure, unspecified Congestive heart failure, unspecified Active Problem 06/17/2016 Modesto Santiago Problem A ctive 2016-06-17 02:08:13 [facility] Benign hypertensive heart disease with heart failure Benign hypertensive heart disease with heart failure Active Problem 06/17/2016 Modesto Santiago Problem Active 2016-06-17 02:08:13 [facility] Methicillin resistant Staphylococcus aureus infection Methicillin resistant Staphylococcus aureus infection Active Problem 06/17/2016 Modesto Santiago Problem Active 2016-06-17 02:08:13 [facility] Skin lesion, infected Skin lesion, infected Active Problem 06/17/2016 Modesto Santiago Problem Active 2016-06-17 02:08:1 3 [facility] [address] Skin lesions Skin lesions Active Problem 06/17/2016 Modesto Santiago Problem Active 2016-06-17 02:08:13 [facility] [address] Blindness Blin dness Active Problem 06/17/2016 Modesto Santiago Problem Active 2016-06-17 02:08:13 Dinesh Tomas Abscess of back Absc ess of back Active Problem 06/17/2016 [place]esto Santiago Problem Active 2016-06-17 02:08:13 [facility] Type II or unspecified type diabetes jignesh litus without mention of complication, not stated as uncontrolled Type II or unspe cified type diabetes mellitus without mention of complication, not stated as uncontrolled Active Problem 06/17/2016 Modesto Santiago Problem Active 2016-06-17 02:08:13 [facility] [place] End-stage renal disease End- stage renal disease Active Problem 06/17/2016 Modesto Santiago Problem Active 03-06-30 02:08:13 Dinesh Tomas Abscess of right axilla Absc ess of right axilla Active Problem 06/17/2016 Modesto Santiago Problem Active 03-06-30 02:08:13 [facility] [address] Orthostatic hypotension Orth ostatic hypotension Active Problem 06/17/2016 Modesto Santiago Problem Active 03-06-30 02:08:13 [facility] [address] Renal transplant recipient Satish al transplant recipient Active Problem 06/17/2016 Modesto Santiago Problem Active 2016-06-17 02:08:13 [facility] [place] Peripheral angiopathy in diseases classified elsewhere Peripheral angiopathy in diseases classified elsewhere Active Problem 06/17/2016 Modesto Santiago Problem Active 2016-06-17 02:08:13 [facility] DM circ dis type II DM c irc dis type II Active Problem 06/17/2016 Modseto Santiago Problem Active 2016-06-17 02:08:13 [facility] [place] Toe amputation status Toe amputation status Active Problem 06/17/2016 Modesto Santiago Problem Active 2016-06-17 02:08:1 3 [facility] [place] Diarrhea Diar gerardo Active Problem 06/17/2016 Modesto Santiago Problem Active 2016-06-17 02:08:13 Saqib rial Thom 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 Active Diagnosis 02/04/2014 [place] Santiago Diagnosis Active 2014-02-04 02:00:10 [facility] [address] Esophageal reflux Esop hageal reflux Active Problem 06/17/2016 Modesto Santiago Problem Active 2016-06-17 02:08:13 Dinesh Thom Dermatitis Derm atitis Active Problem 06/17/2016 Modesto Santiago Problem Active 2016-06-17 02:08:13 Dinesh [address] Abscess of buttock Absc ess of buttock Active Problem 06/17/2016 [place] Santiago Problem Active 2016-06-17 02:08:13 Dinesh Tomas Essential (primary) hypertension Essential (primary) hypertension Active Problem 06/17/2016 Mod[place] Santiago Problem Active 2016-06-17 02:08:13 [facility] [address] DM neuro manif type II DM n euro manif type II Active Problem 06/17/2016 Modesto Santiago Problem Active 20 03-06-30 02:08:13 Dinesh Tomas Polyneuropathy in diabetes Eulalio yneuropathy in diabetes Active Problem 06/17/2016 [place]esto Santiago Problem Active 2016-06-17 02:08:13 [facility] [address] Candidiasis of skin and nails Candidiasis of skin and nails Active Problem 06/17/2016 Modesto Santiago Problem Active 2016-06-17 02:08:13 Dinesh Tomas Otalgia of right ear Otal maikol of right ear Active Problem 06/17/2016 Modesto Santiago Problem Active 2016-06-17 02:08:13 [facility] Candidiasis Cand idiasis Active Problem 06/17/2016 Modesto Santiago Problem Active 2016-06-17 02:08:13 [facility] Muscle weakness (generalized) Muscle weakness (generalized) Active Problem 06/17/2016 Modesto Santiago Problem Active 2016-06-17 02:08:13 [facility] [address] Carpal tunnel syndrome of right wrist Carpal tunnel syndrome of right wrist Active Problem 06/17/2016 Modesto Santiago Problem Active 2016-06-17 02:08:13 Khurram Tomas Otitis externa Otit is externa Active Problem 06/17/2016 [place] Santiago Problem Active 2016-06-17 02:08:13 Dinesh Tomas Hidradenitis Hidr adenitis Active Diagnosis 02/06/2016 [place] E Buxbaum Diagnosis Active 2016-02-06 02:09:01 Dinesh Tomas Otalgia of both ears Otal maikol of both ears Active Problem 06/17/2016 [place] Green Pamela Problem Active 2016-06-17 02:08:13 Dinesh Tomas Eye socket infection Eye socket infection Active Problem 06/17/2016 [place] Green Pamela Problem Active 2016-06-17 02:08:13 Dinesh Tomas Left otitis media Left otitis media Active Problem 06/17/2016 [place] Green Pamela Problem Active 2016-06-17 02:08:13 Dinesh Tomas Furuncle Furu ncle Active Diagnosis 05/12/2016 [place] Green Pamela Diagnosis Active 2016-05-12 02:00:58 Dinesh Tomas Allergies, Adverse Reactions, Alerts Allergy Name Allergy Type Status Severity Reaction(s) Onset Date Inacti ve Date Treating Clinician Comments Source No Known Allergies DA Active U 2019-11-09 00:00:00 [facility] Penicillins DA Active SV 2019-07-31 00:00:00 [facility] penicillin penicillin Active Info Not Available 2016-05-10 00:00:0 0 [facility] [address] Penicillins Drug Allergy Active Rash 2012-10-20 00:00:00 Accelerated rash >10 yrs [facility] Family History Family Member Diagnosis Comments Start Date Stop Date Source Natural brother Diabetes [facility] Natural father Diabetes [facility] Natural father Hypertension [facility] Natural mother Diabetes [facility] Natural sister Diabetes [facility] Unknown Family Member Family History 2013-11-23 05:10:07 2 05:10:07 Dinesh Tomas Social History Social Habit Start Date Stop Date Quantity Comments Source Sex Assigned At [facility] Tobacco use and exposure 2019-11-18 00:00:00 2019-11-18 00:00:00 Neve r used [facility] Alcohol intake 2019-11-18 00:00:00 2019-11-18 00:00:00 Current non-drinker of [facility] (finding[facility] TobaccoUse: 2016-05-10 00:00:00 2016-05-10 00:00:00 Dinesh Tomas Smoking Status Start Date Stop Date Source Never smoker [facility] [place] Medications Ordered Medication Name Filled Medication Name Start Date Stop Da te Current Medication? Ordering Clinician Indication Dosage Frequency Signature (SIG) Comments Components Source mycophenolate (MYFORTIC) 180 MG EC tablet 2019-11-20 08:43:39 Yes 180mg Q.[id number] Take 180 mg by mouth 3 (three) times daily . [facility] aspirin 81 MG EC tablet 2019-11-20 08:43:39 Yes 81mg QD Take 81 mg by mouth daily. [facility] NIFEdipine (PROCARDIA-XL) 60 MG (OSM) 24 hr tablet 2019-11 08:43:39 Yes 60mg QD Take 60 mg by mouth daily. [facility] omeprazole (PRILOSEC) 40 MG capsule 2019-11-20 08:43:39 Yes 40mg QD Take 40 mg by mouth daily. [facility] gabapentin (NEURONTIN) 300 MG capsule 2019-11-20 08:43:39 Yes 300mg Q.[id number] Take 300 mg by mouth 3 (three) times daily. [facility] insulin 70/30, insulin NPH-insulin regul ar, (HUMULIN 70/30) 100 unit/mL (70-30) InPn insulin pen 2019-11-20 08:43:39 Yes Inject subcutaneously 2 (two) times daily before meals SLIDING SCALE tid . [facility] tacrolimus (PROGRAF) 1 MG capsule 2019-11-18 09:11:30 2019 00:00:00 No 3mg Q.5D Take 3 mg by mouth 2 (two) times daily. [facility] valGANciclovir (VALCYTE) 450 mg tablet 2 09:11:19 2019-11-18 00:00:00 No 450mg Q.5D Take 450 mg by mouth 2 (two) sawyer es daily. [facility] predniSONE (DELTASONE) 5 MG tablet 2019-11-18 09:11:13 00:00:00 No S/P kidney transplant 5mg QD Take 5 mg by mouth daily. [facility] pentamidine (PENTAM) 300 mg inhalation solution 2019-11-18 09:11:05 2019-11-18 00:00:00 No 300mg Inhale 300 mg by mouth via inhaler every 30 (thirty) days. [facility] mupirocin (BACTROBAN) 2 % ointment 2019-11-18 09:10:59 202 00:00:00 No Q.5D Apply topically 2 (two) times daily. [facility] esomeprazole (NEXIUM) 40 MG capsule 2019-11-18 09:10:4 4 2019-11-18 00:00:00 No 40mg QD Take 40 mg by mouth daily. [facility] clotrimazole (MYCELEX) 10 mg linda 2019-11-18 09:10:4 1 2019-11-18 00:00:00 No [address]mg Q[address][id number] Place 10 mg i nside cheek 3 (three) times daily. [facility] chlorhexidine (HIBICLENS) 4 % external liquid 20 05-12-01 09:06:56 2019-11-18 00:00:00 No Apply topically daily as needed . [facility] diphenhydrAMINE (BENADRYL) 50 MG capsule 2019-11 09:06:40 2019-11-18 00:00:00 No 50mg Take 50 mg by mouth every night as needed for Itching. [facility] doxycycline (VIBRAMYCIN) 100 MG capsule 09:06:37 2019-11-18 00:00:00 No 100mg Q.5D Take 100 mg by mouth 2 (two) ti mes daily. [facility] Myfortic 2016-05-15 00:00:00 Yes [place] Porrasxbalmam 3 tablet [facility] Humalog Mix 75/25 KwikPen 2016-05-13 02:01:40 Yes Mariela Porrasxbaurenate 30 Units in the morning and 30 units in the evening [facility] Nexium 2016-05-12 02:00:58 Yes Modesto Porrasxbaum 1 capsule [facility] Sodium Bicarbonate 2016-05-12 02:00:58 Yes Modesto Buxbaum 1 tablet [facility] Linezolid 2016-05-12 02:00:58 Yes Modesto Buxbaum 1 tablet [facility] Aspir-81 2016-05-12 02:00:58 Yes Modesto Buxbaum 1 tablet [facility] Prograf 2016-05-12 02:00:58 Yes Modesto Porrasxbaum U nknown [facility] Pravastatin Sodium 2016-05-12 02:00:58 Yes Modesto Buxbaum 1 tablet [facility] Bactrim DS 2016-05-12 02:00:58 Yes Modesto Buxbaum 1 tablet [facility] NIFEdipine ER Osmotic 2016-05-12 02:00:58 Yes Modesto Bu xbaum tome philip tableta todos los martino [facility] Ciprodex 2016-05-12 02:00:58 Yes Modesto Buxbaum 4 drops into affected ear [facility] Hydrocodone-Acetaminophen 2016-05-12 02:00:58 Yes Mariela trotter Buxbaum 1 tablet as needed [facility] Clindamycin HCl 2016-05-12 02:00:58 Yes Modesto Buxbaum 2 capsules [facility] Meclizine HCl 2016-05-12 02:00:58 Yes Modesto Buxbaum TOME PHILIP TABLETA POR VIA ORAL CUATRO VECES AL INO CUANDO SEA NECESARIO [facility] Diphen/Atropine 2016-04-20 00:00:00 Yes Modesto Buxbaum 1 tablet as needed for diarrhea [facility] Ibuprofen 2016-04-19 00:00:00 Yes Modesto Buxbaum 1 tablet [facility] Azithromycin 2016-04-19 00:00:00 Yes Modesto Buxbaum 2 tablets on the first day, then 1 tablet daily for 4 days [facility] Fluconazole 2016-02-05 00:00:00 Yes Modesto Buxbaum 1 tablet [facility] Gabapentin 2016-02-05 00:00:00 Yes Modesto Buxbaum 1 capsule [facility] Bactrim DS 2016-02-05 00:00:00 Yes Modesto Buxbaum 1 tablet [facility] Nystatin 2016-02-05 00:00:00 Yes Modesto Buxbaum 1 application to affected area [facility] Nystop 2016-01-08 00:00:00 Yes [place] Buxbaum 1 to affected area [facility] Meclizine HCl 2015-11-18 03:07:29 Yes Modesto Buxbaum 1 tablet [facility] Triamcinolone Acetonide 2015-11-17 00:00:00 Yes Modesto Buxbaum 1 application to affected area [facility] janelle Pen [place] 01/31" 2015-10-20 00:00:00 Yes [place]esto Buxbaum as directed [facility] Midodrine HCl 2015-10-13 00:00:00 Yes Modesto Buxbaum 1 tablet [facility] Kionex 2015-05-01 02:10:30 Yes Modesto Buxbaum as directed [facility] Clotrimazole 2015-05-01 02:10:30 Yes Modesto Buxbaum 1 linda [facility] Carvedilol 2015-05-01 02:10:30 Yes Modesto Buxbaum 1 tablet with food [facility] Myfortic 2015-05-01 02:10:30 Yes Modesto Buxbaum 4 tablet [facility] HydrALAZINE HCl 2015-05-01 02:10:30 Yes Modesto Buxbaum 1 tablet [facility] Terazosin HCl 2015-05-01 02:10:30 Yes Modesto Buxbaum 1 capsule [facility] PredniSONE 2015-05-01 02:10:30 Yes Modesto Buxbaum 1 tablet with food or milk [facility] Bactrim DS 2015-04-30 00:00:00 Yes Modesto Buxbaum 1 tablet [facility] tacrolimus (PROGRAF) 1 MG capsule 2015-03-08 00:00:00 Yes 1mg Q.5D Take 1 capsule (1 mg total) by mouth 2 (two) times daily Take 1mg in am and 2mg in pm.. [facility] Trazodone HCl 2015-01-12 00:00:00 Yes Modesto Buxbaum 1 tablet [facility] Mupirocin 2015-01-12 00:00:00 Yes Modesto Buxbaum 1 application to affected area [facility] Gmate Test Strips 2014-12-25 00:00:00 Yes [place]esto Delunaaum as directed [facility] Cholestyramine 2014-10-20 00:00:00 Yes Modesto Buxbaum 1 packet mixed with water or non-carbonated drink [facility] [place] Meclizine HCl 2014-09-05 00:00:00 Yes Modesto Buxbaum 1 tablet [facility] Sulfamethoxazole-TMP DS 2014-02-13 00:00:00 Yes Modesto Buxbaum 1 tablet [facility] mycophenolate (MYFORTIC) 180 MG EC tablet 2014-02-04 00:00:00 Yes 720mg Q.5D Take 4 tablets (720 mg total) by mouth 2 (two) times daily. [facility] Viagra 2014-02-03 00:00:00 Yes Modesto Buxbaum 1 tablet as needed [facility] One Touch/One Touch II Starter 2013-11-25 00:00:00 Yes Modesto Porrasxbaum as directed [facility] One Touch/One Touch II Starter 2013-11-25 00:00:00 Yes Modesto Porrasxbaum as directed [facility] Sulfamethoxazole-TMP DS 2013-11-23 05:10:07 Yes Modesto Buxbaum 1 tablet [facility] sulfamethoxazole-trimethoprim (BACTRIM DS) 800-160 mg per ta blet 2013-08-02 00:00:00 Yes 160mg{trimethoprim} Q.[id number] Take 1 tablet (160 mg of trimethoprim total) by mouth 3 (three) times a week. [facility] tamsulosin (FLOMAX) 0.4 mg Cp24 24 hr capsule 31-07-15 00:00:00 2019-11-18 00:00:00 No .4mg QD Take 1 capsule (0.4 mg total) b y mouth daily. [facility] Zithromax Z-Mukund 2013-07-17 00:00:00 Yes Modesto Porrasxbaum 2 tablets on the first day, then 1 tablet daily for 4 days [facility] Dextromethorphan-Guaifenesin 2013-07-17 00:00:00 Yes Noe hael Buxbaum 5 ml as needed [facility] Levemir Flexpen 2013-06-24 00:00:00 Yes Modesto Porrasxbaum as directed [facility] lqctawei-oumn-CI-calcium &mins 9 mg iron-400 mcg Tab 2013-06-04 00:00:00 2019-11-18 00:00:00 No 1{tbl} QD Take 1 tablet by norm daily. [facility] predniSONE (DELTASONE) 10 MG tablet 2013-06-04 00:00:0 0 2019-11-18 00:00:00 No 10mg QD Take 10 mg by mouth daily. [facility] NovoLog Mix 70/30 Flexpen 2013-04-23 00:00:00 Yes Mariela Santiago 30u am, 25u qpm [facility] Vital Signs Vital Name Observation Time Observation Value Comments Source Systolic blood pressure 2019-11-18 14:00:00 136 mm[Hg] [facility] Diastolic blood pressure 2019-11-18 14:00:00 73 mm[Hg] [facility] Heart rate 2019-11-18 14:00:00 68 /min [facility] Respiratory rate 2019-11-18 14:00:00 13 /min [facility] Oxygen saturation in Arterial blood by Pulse oximetry 11-17 14:00:00 99 /min [place] [facility] Body temperature 2019-11-18 11:08:12 36.61 Anabelle [facility] Body height 2019-11-18 08:41:[address] [facility] Body weight 2019-11-18 08:41:[address] [facility] BMI 2019-11-18 08:41:00 35.25 kg/m2 [facility] Weight 2016-05-10 15:30:[facility] 2016-05-10 15:30:00 [facility] Temperature Oral (F) 2016-05-10 15:30:00 96.1 F [facility] [place] Heart Rate 2016-05-10 15:30:00 [facility] Diastolic (mm Hg) 2016-05-10 15:30:00 [facility] [place] Systolic (mm Hg) 2016-05-10 15:30:00 [facility] Weight 2016-04-19 16:30:00 [facility] Height 2016-04-19 16:30:00 [facility] [place] Temperature Oral (F) 2016-04-19 16:30:00 97.1 F [facility] [place] Heart Rate 2016-04-19 16:30:00 [facility] Diastolic (mm Hg) 2016-04-19 16:30:00 [facility] [place] Systolic (mm Hg) 2016-04-19 16:30:00 [facility] Weight 2016-02-05 16:45:00 [facility] [place] Height 2016-02-05 16:45:00 [facility] Temperature Oral (F) 2016-02-05 16:45:00 97.1 F [facility] [place] Heart Rate 2016-02-05 16:45:00 [facility] [place] Diastolic (mm Hg) 2016-02-05 16:45:00 [facility] Systolic (mm Hg) 2016-02-05 16:45:00 [facility] [place] Weight 2016-01-08 13:30:00 [facility] Height 2016-01-08 13:30:00 [facility] Temperature Oral (F) 2016-01-08 13:30:00 97.8 F [facility] [place] Heart Rate 2016-01-08 13:30:00 [facility] Diastolic (mm Hg) 2016-01-08 13:30:00 [facility] [place] Systolic (mm Hg) 2016-01-08 13:30:00 [facility] [place] Weight 2015-11-17 21:15:00 [facility] Height 2015-11-17 21:15:00 [facility] Temperature Oral (F) 2015-11-17 21:15:00 96.8 F [facility] [place] Heart Rate 2015-11-17 21:15:00 [facility] [place] Diastolic (mm Hg) 2015-11-17 21:15:00 [facility] Systolic (mm Hg) 2015-11-17 21:15:00 [facility]ib rial [place] Weight 2015-04-30 20:15:00 [facility] Height 2015-04-30 20:15:00 [facility] Temperature Oral (F) 2015-04-30 20:15:00 98.0 F [facility] Heart Rate 2015-04-30 20:15:00 [facility] Diastolic (mm Hg) 2015-04-30 20:15:00 [facility] [place] Systolic (mm Hg) 2015-04-30 20:15:00 [facility] Weight 2014-09-05 15:45:00 [facility] [place] Height 2014-09-05 15:45:00 [facility] [place] Temperature Oral (F) 2014-09-05 15:45:00 97.8 F [facility] Heart Rate 2014-09-05 15:45:00 [facility] Diastolic (mm Hg) 2014-09-05 15:45:00 [facility] [place] Systolic (mm Hg) 2014-09-05 15:45:00 [facility] Weight 2014-02-03 14:00:00 [facility] Height 2014-02-03 14:00:00 [facility] [place] Temperature Oral (F) 2014-02-03 14:00:00 98.7 F [facility] [place] Heart Rate 2014-02-03 14:00:00 [facility] [place] Diastolic (mm Hg) 2014-02-03 14:00:00 [facility] Systolic (mm Hg) 2014-02-03 14:00:00 [facility] Weight 2013-11-22 15:30:00 [facility] Height 2013-11-22 15:30:00 [facility] [place] Temperature Oral (F) 2013-11-22 15:30:00 97.8 F [facility] [place] Heart Rate 2013-11-22 15:30:00 [facility] [place] Diastolic (mm Hg) 2013-11-22 15:30:00 [facility] [place] Systolic (mm Hg) 2013-11-22 15:30:00 [facility] [place] Weight 2013-11-22 14:30:00 [facility] [place] Height 2013-11-22 14:30:00 [facility] [place] Temperature Oral (F) 2013-11-22 14:30:00 97.8 F [facility] Heart Rate 2013-11-22 14:30:00 [facility] Diastolic (mm Hg) 2013-11-22 14:30:00 Mem [facility] [place] Systolic (mm Hg) 2013-11-22 14:30:00 Saqib rial [place] Procedures Procedure Date / Time Performed Performing Clinician [facility] wendy US TRANSPLANT KIDNEY 2020-07-23 11:30:00 System, Provider Not In [facility] PROTHROMBIN TIME/INR 2019-11-18 09:33:00 Mague Peterson [facility] APTT 2019-11-18 09:33:00 Mague Peterson [facility] CBC W/PLT COUNT & AUTO DIFFERENTIAL 2019-11-18 09:33:00 Mague Banegas i [facility] Plan of Care Planned Activity Planned Date Details Comments Source Future Scheduled Test 2020-05-19 00:00:00 INFLUENZA VACCINE (#1) [code = INFLUENZA VACCINE (#1)] [facility] Future Scheduled Test 2014-01-17 00:00:00 Hemoglobin A1c pacheco surement (procedure) [code = 11101208] [facility] Future Scheduled Test 2009 00:00:00 Lipid panel (proce dure) [code = 20557514] [facility] Future Scheduled Test 2009-01-17 00:00:00 MEDICARE ANNUAL WE LLNESS (YEAR 2 or FIRST YEAR if no IPPE) [code = MEDICARE ANNUAL WELLNESS (YEAR 2 or FIRST YEAR if no IPPE)] [facility] Future Scheduled Test 1984 00:00:00 DIABETIC EYE EXAM [code = DIABETIC EYE EXAM] [facility] Future Scheduled Test 1984 00:00:00 Diabetic foot exam ination (regime/therapy) [code = 429148569] [facility] Future Scheduled Test 1984 00:00:00 Urine screening fo r protein (procedure) [code = 446828026] [facility] Future Scheduled Test 1980 00:00:00 PNEUMOCOCCAL VACCI NE 0-64 YRS (1 of 3 - PCV13) [code = PNEUMOCOCCAL VACCINE 0-64 YRS (1 of 3 - PCV13)] [facility] Encounters Start Date/Time End Date/Time Encounter Type Admission Type [facility] Facility Care Department Encounter ID Source 2018-01-08 08:32:00 2018-01-08 08:32:00 Outpatient C [facility] [id number] [facility] 2016-06-15 10:01:00 2016-06-15 10:01:00 Outpatient Modesto Santiago [place], [place] [address] eClinicalWork s 2016-05-10 10:30:00 2016-05-10 10:30:00 Outpatient Modesto Santiago [place], [place] [address] eClinicalWork s 2016-05-06 10:14:00 2016-05-06 10:14:00 Outpatient Modesto Santiago [place], [place] [address] eClinicalWork s 2016-04-20 15:43:00 2016-04-20 15:43:00 Outpatient Modesto Santiago [place], [place] [address] eClinicalWork s 2016-04-20 13:41:00 2016-04-20 13:41:00 Outpatient Modesto Santiago [place], [place] [address] eClinicalWork s 2016-04-19 11:30:00 2016-04-19 11:30:00 Outpatient Modesto Santiago [place], [place] [address] eClinicalWork s 2016-04-14 11:52:00 2016-04-14 11:52:00 Outpatient Modesto Santiago [place] [address] eClinicalWork s 2016-02-05 11:45:00 2016-02-05 11:45:00 Outpatient Modesto Santiago [place], [place] [address] eClinicalWork s 2016-01-08 15:08:00 2016-01-08 15:08:00 Outpatient Modesto Santiago [place], [place] [address] eClinicalWork s 2016-01-08 08:30:00 2016-01-08 08:30:00 Outpatient Modesto Santiago [place], [place] [address] eClinicalWork s 2015-11-19 14:49:00 2015-11-19 14:49:00 Outpatient Modesto Santiago [place], [place] [address] eClinicalWork s 2015-11-17 16:01:00 2015-11-17 16:01:00 Outpatient Modesto Santiago [place], [place] [address] eClinicalWork s 2015-11-17 15:15:00 2015-11-17 15:15:00 Outpatient Modesto Santiago [place], [place] [address] eClinicalWork s 2015-11-09 10:18:00 2015-11-09 10:18:00 Outpatient Modesto Santiago [place], [place] [address] eClinicalWork s 2015-10-30 09:17:00 2015-10-30 09:17:00 Outpatient Modesto Santiago [place], [place] [address] eClinicalWork s 2015-10-29 09:24:00 2015-10-29 09:24:00 Outpatient Modesto Santiago [place], [place] [address] eClinicalWork s 2015-10-27 11:02:00 2015-10-27 11:02:00 Outpatient Modesto Santiago [place], [place] [address] eClinicalWork s 2015-10-22 11:06:00 2015-10-22 11:06:00 Outpatient Modesto Santiago [place] [address] eClinicalWork s 2015-06-29 10:08:00 2015-06-29 10:08:00 Outpatient Modesto Santiago [place], [place] [address] eClinicalWork s 2015-04-30 15:15:00 2015-04-30 15:15:00 Outpatient Modesto Santiago DO, [place] [address] eClinicalWork s 2014-10-20 10:26:00 2014-10-20 10:26:00 Outpatient Modesto Santiago [place], [place] [address] eClinicalWork s 2014-09-05 09:45:00 2014-09-05 09:45:00 Outpatient Modesto Santiago [place], [place] [address] eClinicalWork s 2014-02-03 09:00:00 2014-02-03 09:00:00 Outpatient Modesto Santiago [place], [place] [address] eClinicalWork s 2013-11-25 10:42:00 2013-11-25 10:42:00 Outpatient Modesto Santiago [place], [place] [address] eClinicalWork s 2013-11-22 09:30:00 2013-11-22 09:30:00 Outpatient Modesto Santiago [place], [place] [address] [facility] Description Test Time Test Comments Results Result Comments Source CHEST 2 VIEWS 2020-07-27 13:19:00 [facility] 1975 Sex: M [place] [address] Patient Name: VAISHALI GILMAN MR #: [id number] : 1975 Age/Sex: 45/M Req #: [id number] [facility] Physician: Ordered by: VARGHESE JOHNSON MD Report #: [id number] Location: OR Room/Bed: Procedure: [id number] DX/CHEST 2 VIEWS Exam Date: 07/27/20 Exam Time: 1255 REPORT STATUS: Signed Exam: CHEST 2 VIEWS Date: 07/27/2020 1:19 PM INDICATION: [id number] PRE OP Comparison: None FINDINGS: Lines/Tubes:None Lungs:The lungs are well inflated. No focal consolidation or pulmonary edema. Pleura:No pleural effusion. No pneumothorax. Heart/Mediastinum:The cardiomediastinal silhouette is normal in size and contour. Bones/Soft Tissues: No acute osseous abnormality. Mild multilevel degenerative changes of the spine are noted. Upper abdomen: Unremarkable. IMPRESSION: Negative for acute intrathoracic process. Signed by: Tyra Young MD on 07/27/2020 1:19 PM Dictated By: TYRA YOUNG MD 18 Transcribed By: JESSICA on 07/27/201318 COPY TO: VARGHESE JOHNSON MD U/S, TRANSPLANT, KIDNEY 2020-07-23 13:48:00 Pt is blind; terra roy assistance Reason for Exam:->T86.19 [facility] 1975 Sex: MFINAL REPORT TECHNIQUE: Grayscale, color Doppler, and spectral Doppler ultrasound of the transplant kidney and renal vasculature. INDICATION: 45-year-old man with other complication of kidney transplant. COMPARISON: Renal transplant ultrasound 03/07/2015. FINDINGS: TRANSPLANT KIDNEY: Transplant kidney is located in the right lower quadrant and measures 12 x 6.9 x 5.7 cm with cortical thickness of 1.4 cm. No hydronephrosis. No solid mass. No perinephric fluid collection. VASCULATURE: Iliac artery, arterial anastomosis, and renal artery are patent with peak systolic velocities of 136 cm/s, 131 cm/s, and 82 cm/s, respectively. Resistive indices throughout the transplant kidney are within normal limits. Acceleration times throughout the transplant kidney are within normal limits. Renal vein, venous anastomosis, and iliac vein are patent. BLADDER: Unremarkable. IMPRESSION:Unremarkable appearance of the transplant kidney. Unremarkable Doppler evaluation of the renal vasculature. Signed: Beena Natarajan MDReport Verified Date/Time: 07/23/2020 13:48:56 transplant kidney 2020-07-23 13:48:00 Interfa ce, External Ris In - 07/23/2020 1:51 PM CSTFINAL REPORT TECHNIQUE: Grayscale, color Doppler, and spectral Doppler ultrasound of the transplant kidney and renal vasculature. INDICATION: 45-year-old man with other complication of kidney transplant. COMPARISON: Renal transplant ultrasound 03/07/2015. FINDINGS: TRANSPLANT KIDNEY: Transplant kidney is located in the right lower quadrant and measures 12 x 6.9 x 5.7 cm with cortical thickness of 1.4 cm. No hydronephrosis. No solid mass. No perinephric fluid collection. VASCULATURE: Iliac artery, arterial anastomosis, and renal artery are patent with peak systolic velocities of 136 cm/s, 131 cm/s, and 82 cm/s, respectively. Resistive indices throughout the transplant kidney are within normal limits. Acceleration times throughout the transplant kidney are within normal limits. Renal vein, venous anastomosis, and iliac vein are patent. BLADDER: Unremarkable. IMPRESSION:Unremarkable appearance of the transplant kidney. Unremarkable Doppler evaluation of the renal vasculature. Signed: Beena Natarajan MDReport Verified Date/Time: 07/23/2020 13:48:56 [facility] CBC with platelet count + automated diff 2019-11-18 09:55:00 Test Item WBC (test code = 6690-2) 7.2 3.5- 10.5 K/L RBC (test code = 789-8) 4.89 4.63- 6.08 M/L MCHC (test code = 786-4) 32.7 32.3- 36.5 GM/DL Hematocrit (test code = 4544-3) 42.5 % 40.1-51 MCV (test code = 787-2) 86.9 fL 79-92.2 MCH (test code = 785-6) 28.4 pg 25.7-32.2 RDW (test code = 788-0) 14.1 % 11.6-14.4 Platelets (test code = 777-3) 148 150- 450 K/CU MM L MPV (test code = 35888-7) 11.7 fL 9.4-12.4 nRBC (test code = 413) 0 0- 0 /100 WBC % Neutros (test code = 429) 66 % % Lymphs (test code = 430) 22 % % Monos (test code = 431) 9 % % Eos (test code = 432) 2 % % Baso (test code = 437) 0 % # Neutros (test code = 670) 4.70 1.78- 5.38 K/L # Lymphs (test code = 414) 1.60 1.32- 3.57 K/L # Monos (test code = 415) 0.63 0.30- 0.82 K/L # Eos (test code = 416) 0.17 0.04- 0.54 K/L # Baso (test code = 417) 0.02 0.01- 0.08 K/L Immature Granulocytes-Relative (test code = 2801) 0 % 0-1 Lab Interpretation (test code = 38571-1) Abnormal [facility] W/PLT COUNT & AUTO [id number] 09:55:00* Test Item Value Reference Range Interpretation Comments WHITE BLOOD CELL COUNT (BEAKER) (test code = 775) 7.2 K/ L 3.5- 10.5 RED BLOOD CELL COUNT (BEAKER) (test code = 761) 4.89 M/ L 4.63-6 .08 HEMOGLOBIN (BEAKER) (test code = 410) 13.9 GM/DL 13.7-17.5 HEMATOCRIT (BEAKER) (test code = 411) 42.5 % 40.1-51.0 MEAN CORPUSCULAR VOLUME (BEAKER) (test code = 753) 86.9 fL 79. 0-92.2 MEAN CORPUSCULAR HEMOGLOBIN (BEAKER) (test code = 751) 28.4 pg 25.7-32.2 MEAN CORPUSCULAR HEMOGLOBIN CONC (BEAKER) (test code = 752) 32.7 GM/DL 32.3-36.5 RED CELL DISTRIBUTION WIDTH (BEAKER) (test code = 412) 14.1 % 11.6-14.4 PLATELET COUNT (BEAKER) (test code = 756) 148 K/CU MM 150-450 L MEAN PLATELET VOLUME (BEAKER) (test code = 754) 11.7 fL 9.4-12 .4 NUCLEATED RED BLOOD CELLS (BEAKER) (test code = 413) 0 /100 WBC 0 -0 NEUTROPHILS RELATIVE PERCENT (BEAKER) (test code = 429) 66 % LYMPHOCYTES RELATIVE PERCENT (BEAKER) (test code = 430) 22 % MONOCYTES RELATIVE PERCENT (BEAKER) (test code = 431) 9 % EOSINOPHILS RELATIVE PERCENT (BEAKER) (test code = 432) 2 % BASOPHILS RELATIVE PERCENT (BEAKER) (test code = 437) 0 % NEUTROPHILS ABSOLUTE COUNT (BEAKER) (test code = 670) 4.70 K/ L 1.78-5.38 LYMPHOCYTES ABSOLUTE COUNT (BEAKER) (test code = 414) 1.60 K/ L 1.32-3.57 MONOCYTES ABSOLUTE COUNT (BEAKER) (test code = 415) 0.63 K/ L 0. 30-0.82 EOSINOPHILS ABSOLUTE COUNT (BEAKER) (test code = 416) 0.17 K/ L 0.04-0.54 BASOPHILS ABSOLUTE COUNT (BEAKER) (test code = 417) 0.02 K/ L 0. 01-0.08 IMMATURE GRANULOCYTES-RELATIVE PERCENT (BEAKER) (test code = 2801) 0 % 0-1 [id number] 09:54:00* Test Item Value Reference Range Interpretation Comments PTT (test code = 81233-0) 29.1 22.5- 36.0 seconds Lab Interpretation (test code = 00545-9) [facility] 09:54:00* Test Item Value Reference Range Interpretation Comments PARTIAL THROMBOPLASTIN TIME (BEAKER) (test code = 760) 29.1 seconds 22.5-36.0 Prothrombin time/[id number] 09:53:00* Test Item Value Reference Range Interpretation Comments Protime (test code = 5902-2) 13.8 11.9- 14.2 seconds INR (test code = 6301-6) 1.1 <=5.9 AKIL (test code = AKIL) Effective 02/13/2019: PT Refe rence Range ChangeNew: 11.9- 14.2 Previous: 11.7-14.7 RECOMMENDED COUMADIN/WARFARIN INR THERAPY RANGESSTANDARD DOSE: 2.0-3.0 Includes: PROPHYLAXIS for venous thrombosis, sys temic embolization; TREATMENT for venous thrombosis and/or pulmonary embolus.HIGH RISK: Target INR is 2.5-3.5 for patients wiht mechanical heart valves. Lab Interpretation (test code = 66894-5) [facility][id number] 09:53:00* Test Item Value Reference Range Interpretation Comments PROTIME (BEAKER) (test code = 759) 13.8 seconds 11.9-14.2 INR (BEAKER) (test code = 370) 1.1 <=5.9 Effective 02/13/2019: PT Reference Range ChangeNew: 11.9-14.2 Previous: 11.7-14. 7RECOMMENDED COUMADIN/WARFARIN INR THERAPY RANGESSTANDARD DOSE: 2.0-3.0 Include s: PROPHYLAXIS for venous thrombosis, systemic embolization; TREATMENT for venou s thrombosis and/or pulmonary embolus.HIGH RISK: Target INR is 2.5-3.5 for patie nts wiht mechanical heart valves.[id number] 17:11:00* Test Item Value Reference Range Interpretation Comments GLUBED (test code = GLUBED) 185 mg/dL 74-106 H Performed by certified monitor car operator at [facility] [id number] 14:46:00* Test Item Value Reference Range Interpretation Comments GLUBED (test code = GLUBED) 125 mg/dL 74-106 H Performed by certified monitor car operator at [facility] [id number] 11:48:00* Test Item Value Reference Range Interpretation Comments TROPONIN-I (test code = TROPI) <0.015 ng/mL 0-0.045 N COMMENTS TO INFRASTRUCTURE ENGINEER: COLLECT 3 HOURS AFTER PREVIOUS [id number] 09:19:00* Test Item Value Reference Range Interpretation Comments GLUBED (test code = GLUBED) 87 mg/dL 74-106 N Performed by certified monitor car operator at [facility] - CT CHEST W/O [id number] 06:34:00 Name: VAISHALI GILMAN [facility] : 1975 Age/S: 44 / M Sally Landin [facility] Unit #: [id number] Loc: [place] [address] Phys: Larissa Samuels MD Acct: [id number] Dis Date: 11/09/2019 Status: DIS IN PHONE #: [phone] Exam Date: 11/09/2019 0558 FAX #: [phone] Reason: AMS EXAMS: CPT CODE: [id number] CT CHEST W/O CONTRAST 14858 AFTER HOURS SERVICE ON: 11/09/2019 6:[address] Scan of the Chest Without Contrast Location Code M12 History: AMS Technique: Axial and reconstructed coronal and sagittal scans were performed on a helical scanner pre IV contrast only. Study is limited secondary to lack of IV contrast. One or more of the following dose reduction techniques were used: Automated exposure control, adjustment of the mA and/or kV according to patient size, and/or utilization of iterative reconstruction technique. Findings: Lungs and Pleura: There is no pneumothorax, infiltrate or contusion. Mediastinum: Heart and mediastinum are within normal limits. Other: There is no rib fracture. Impression: No acute findings in the chest. AFTER HOURS SERVICE ON: 11/09/2019 6:[address] Scan of the Abdomen and Pelvis Without Contrast Location Code M12 History: AMS Technique: Axial and reconstructed coronal and sagittal scans were performed on a helical scanner pre oral and IV contrast. Study is limited secondary to lack of oral and IV contrast. Evaluation for laceration is limited without IV contrast. PAGE 1 Signed Report (CONTINUED) Name: VAISHALI GILMAN [facility] : 1975 Age/S: 44 / M [address] Unit #: [id number] Loc: [place] [address] Phys: Larissa Samuels MD Acct: [id number] Dis Date: 11/09/2019 Status: DIS IN PHONE #: [phone] Exam Date: 11/09/2019 0558 FAX #: [phone] Reason: AMS EXAMS: CPT CODE: [id number] CT CHEST W/O CONTRAST 22941 <Continued> One or more of the following dose reduction techniques were used: Automated exposure control, adjustment of the mA and/or kV accordi ng to patient size, and/or utilization of iterative reconstruction technique. Findings: LIVER: There is no perihepatic free fluid. GALLBLADDER/BILIARY: No significant findings. PANCREAS: No significant findings. SPLEEN: There is no perisple esteban free fluid. ADRENALS: No significant findings. KIDNEYS: No nephrolithiasis or hydronephrosis. Kidneys are atrophic. There is a ri ght lower quadrant transplanted kidney. There is no hydronephrosis or p erinephric fluid collection. BLADDER: Bladder is empty with a Sandhu cath eter in place. GASTROINTESTINAL: No significant findings. The appendix i s unremarkable. OTHER: There is no pelvic fracture. IMPRESSION: No acute findings in the abdomen or pelvis. at 0634 Reported and signed by: Betsy Marcus M.D. CC: Marycarmen Vyas MD; Larissa Samuels MD Technologist:DIPAK VEGA, RTWendy De La Cruz CTDI: DLP: Trnscb Date/Time: 020 (0634) t.MISTYR.MA50 Orig Print D/T: S: 11/09/2019 (0637) PAGE 2 Signed Report - CT ABD PELVIS W/O [id number] 06:34:00 Name: VAISHALI GILMAN [facility] : 1975 Age/S: 44 / M [address] Unit #: [id number] Loc: [place] [address] Phys: Larissa Samuels MD Acct: [id number] Dis Date: 11/09/2019 Status: DIS IN PHONE #: [phone] Exam Date: 11/09/2019557 FAX #: [phone] Reason: AMS EXAMS: CPT CODE: [id number] CT ABD PELVIS W/O CONT 56265 AFTER HOURS SERVICE ON: 11/09/2019 6:[address] Scan of the Chest Without Contrast Location Code M12 History: AMS Technique: Axial and reconstructed coronal and sagittal scans were performed on a helical scanner pre IV contrast only. Study is limited secondary to lack of IV contrast. One or more of the following dose reduction techniques were used: Automated exposure control, adjustment of the mA and/or kV according to patient size, and/or utilization of iterative reconstruction technique. Findings: Lungs and Pleura: There is no pneumothorax, infiltrate or contusion. Mediastinum: Heart and mediastinum are within normal limits. Other: There is no rib fracture. Impression: No acute findings in the chest. AFTER HOURS SERVICE ON: 11/09/2019 6:[address] Scan of the Abdomen and Pelvis Without Contrast Location Code M12 History: AMS Technique: Axial and reconstructed coronal and sagittal scans were performed on a helical scanner pre oral and IV contrast. Study is limited secondary to lack of oral and IV contrast. Evaluation for laceration is limited without IV contrast. PAGE 1 Signed Report (CONTINUED) Name: VAISHALI GILMAN [facility] : 1975 Age/S: 44 / M [address] [facility] Unit #: [id number] Loc: [place] [address] Phys: Larissa Samuels MD Acct: [id number] Dis Date: 11/09/2019 Status: DIS IN PHONE #: [phone] Exam Date: 11/09/2019557 FAX #: [phone] Reason: AMS EXAMS: CPT CODE: [id number] CT ABD PELVIS W/O CONT 59449 <Continued> One or more of the following dose reduction techniques were used: Automated exposure control, adjustment of the mA and/or kV accordi ng to patient size, and/or utilization of iterative reconstruction technique. Findings: LIVER: There is no perihepatic free fluid. GALLBLADDER/BILIARY: No significant findings. PANCREAS: No significant findings. SPLEEN: There is no perisple esteban free fluid. ADRENALS: No significant findings. KIDNEYS: No nephrolithiasis or hydronephrosis. Kidneys are atrophic. There is a ri ght lower quadrant transplanted kidney. There is no hydronephrosis or p erinephric fluid collection. BLADDER: Bladder is empty with a Sandhu cath eter in place. GASTROINTESTINAL: No significant findings. The appendix i s unremarkable. OTHER: There is no pelvic fracture. IMPRESSION: No acute findings in the abdomen or pelvis. at 0634 Reported and signed by: Betsy Marcus M.D. CC: Marycarmen Vyas MD; Larissa Samuels MD Technologist:DIPAK VEGA RTWendy De La Cruz CTDI: DLP: Trnscb Date/Time: 020 (0634) t.SDR.MA50 Orig Print D/T: S: 11/09/2019 (0637) PAGE 2 Signed Report - CT CHEST W/O [id number] 06:34:00 Name: VAISHALI GILMAN [facility] : 1975 Age/S: 44 / M [address] [facility] Unit #: [id number] Loc: [place] [address] Phys: Larissa Samuels MD Acct: [id number] Dis Date: Status: ADM IN PHONE #: [phone] Exam Date: 11/09/2019 0558 FAX #: [phone] Reason: AMS EXAMS: CPT CODE: [id number] CT CHEST W/O CONTRAST 12550 AFTER HOURS SERVICE ON: 11/09/2019 6:[address] Scan of the Chest Without Contrast Location Code M12 History: AMS Technique: Axial and reconstructed coronal and sagittal scans were performed on a helical scanner pre IV contrast only. Study is limited secondary to lack of IV contrast. One or more of the following dose reduction techniques were used: Automated exposure control, adjustment of the mA and/or kV according to patient size, and/or utilization of iterative reconstruction technique. Findings: Lungs and Pleura: There is no pneumothorax, infiltrate or contusion. Mediastinum: Heart and mediastinum are within normal limits. Other: There is no rib fracture. Impression: No acute findings in the chest. AFTER HOURS SERVICE ON: 11/09/2019 6:[address] Scan of the Abdomen and Pelvis Without Contrast Location Code M12 History: AMS Technique: Axial and reconstructed coronal and sagittal scans were performed on a helical scanner pre oral and IV contrast. Study is limited secondary to lack of oral and IV contrast. Evaluation for laceration is limited without IV contrast. PAGE 1 Signed Report (CONTINUED) Name: VAISHALI GILMAN [facility] : 1975 Age/S: 44 / M [address] [facility] Unit #: [id number] Loc: [place] [address] Phys: Larissa Samuels MD Acct: [id number] Dis Date: Status: ADM IN PHONE #: [phone] Exam Date: 11/09/2019 0558 FAX #: [phone] Reason: AMS EXAMS: CPT CODE: [id number] CT CHEST W/O CONTRAST 76666 <Continued> One or more of the following dose reduction techniques were used: Automated exposure control, adjustment of the mA and/or kV accordi ng to patient size, and/or utilization of iterative reconstruction technique. Findings: LIVER: There is no perihepatic free fluid. GALLBLADDER/BILIARY: No significant findings. PANCREAS: No significant findings. SPLEEN: There is no perisple esteban free fluid. ADRENALS: No significant findings. KIDNEYS: No nephrolithiasis or hydronephrosis. Kidneys are atrophic. There is a ri ght lower quadrant transplanted kidney. There is no hydronephrosis or p erinephric fluid collection. BLADDER: Bladder is empty with a Sandhu cath eter in place. GASTROINTESTINAL: No significant findings. The appendix i s unremarkable. OTHER: There is no pelvic fracture. IMPRESSION: No acute findings in the abdomen or pelvis. at 0634 Reported and signed by: Betsy Marcus M.D. CC: Marycarmen Vyas MD; Larissa Samuels MD Technologist:DIPAK VEGA RT; Marc De La Cruz CTDI: DLP: Trnscb Date/Time: 020 (34) [email or web address] Orig Print D/T: S: 11/09/2019 (0637) PAGE 2 Signed Report - CT ABD PELVIS W/O [id number] 06:34:00 Name: VAISHALI GILMAN [facility] : 1975 Age/S: 44 / M [address] [facility] Unit #: [id number] Loc: [place] [address] Phys: Larissa Samuels MD Acct: [id number] Dis Date: Status: ADM IN PHONE #: [phone] Exam Date: 11/09/201958 FAX #: [phone] Reason: AMS EXAMS: CPT CODE: [id number] CT ABD PELVIS W/O CONT 53873 AFTER HOURS SERVICE ON: 11/09/2019 6:[address] Scan of the Chest Without Contrast Location Code M12 History: AMS Technique: Axial and reconstructed coronal and sagittal scans were performed on a helical scanner pre IV contrast only. Study is limited secondary to lack of IV contrast. One or more of the following dose reduction techniques were used: Automated exposure control, adjustment of the mA and/or kV according to patient size, and/or utilization of iterative reconstruction technique. Findings: Lungs and Pleura: There is no pneumothorax, infiltrate or contusion. Mediastinum: Heart and mediastinum are within normal limits. Other: There is no rib fracture. Impression: No acute findings in the chest. AFTER HOURS SERVICE ON: 11/09/2019 6:[address] Scan of the Abdomen and Pelvis Without Contrast Location Code M12 History: AMS Technique: Axial and reconstructed coronal and sagittal scans were performed on a helical scanner pre oral and IV contrast. Study is limited secondary to lack of oral and IV contrast. Evaluation for laceration is limited without IV contrast. PAGE 1 Signed Report (CONTINUED) Name: VAISHALI GILMAN [facility] : 1975 Age/S: 44 / M [address] [facility] Unit #: [id number] Loc: [place] [address] Phys: Larissa Samuels MD Acct: [id number] Dis Date: Status: ADM IN PHONE #: [phone] Exam Date: 11/09/2019 0577 FAX #: [phone] Reason: AMS EXAMS: CPT CODE: [id number] CT ABD PELVIS W/O CONT 43345 <Continued> One or more of the following dose reduction techniques were used: Automated exposure control, adjustment of the mA and/or kV accordi ng to patient size, and/or utilization of iterative reconstruction technique. Findings: LIVER: There is no perihepatic free fluid. GALLBLADDER/BILIARY: No significant findings. PANCREAS: No significant findings. SPLEEN: There is no perisple esteban free fluid. ADRENALS: No significant findings. KIDNEYS: No nephrolithiasis or hydronephrosis. Kidneys are atrophic. There is a ri ght lower quadrant transplanted kidney. There is no hydronephrosis or p erinephric fluid collection. BLADDER: Bladder is empty with a Sandhu cath eter in place. GASTROINTESTINAL: No significant findings. The appendix i s unremarkable. OTHER: There is no pelvic fracture. IMPRESSION: No acute findings in the abdomen or pelvis. at 0634 Reported and signed by: Betsy Marcus M.D. CC: Marycarmen Vyas MD; Larissa Samuels MD Technologist:DIPAK VEGA RTWendy De La Cruz CTDI: DLP: Trnscb Date/Time: 020 (0634) [email or web address] Orig Print D/T: S: 11/09/2019 (0637) PAGE 2 Signed Report [id number] 05:39:00* Test Item Value Reference Range Interpretation Comments GLUBED (test code = GLUBED) 103 mg/dL 74-106 N Performed by certified monitor car operator at [facility] [id number] 05:39:00* Test Item Value Reference Range Interpretation Comments GLUBED (test code = GLUBED) 146 mg/dL 74-106 H Performed by certified monitor car operator at [facility] - CT HEAD/BRAIN W/O [id number] 05:04:00 Name: VAISHALI GILMAN [facility] : 1975 Age/S: 44 / M [address] [facility] #: [id number] Loc: [place] [address] Phys: Larissa Samuels MD Acct: [id number] Dis Date: 11/09/2019 Status: DIS IN PHONE #: [phone] Exam Date: 11/09/2019 0400 FAX #: [phone] Reason: Altered Mental Status EXAMS: CPT CODE: [id number] CT HEAD/BRAIN W/O CONT 59192 EXAM: - CT HEAD/BRAIN W/O CONT HISTORY: AMS. TECHNIQUE: Axial tomograms through the brain were obtained without intravenous contrast. This exam was performed according to our departmental dose-optimization program, which includes automated exposure control, adjustment of the mA and/or kV according to patient size and/or use of iterative reconstruction technique. COMPARISON: None available time of interpretation. FINDINGS: There is no intracranial hemorrhage, mass, or mass effect. The ventricular system and sulci are age-appropriate. There is no evidence of acute infarction. The osseous structures show no significant abnormalities. Right globe prosthesis is present. The visualized sinuses are relatively clear. The soft tissues are unremarkable. IMPRESSION: No acute intracranial abnormality with no evidence of intracranial hemorrhage. Electron ically Signed by Kareem Avitia MD on 11/09/2019 at 0504 Reported and signed by: Kareem Avitia MD CC: Larissa Samuels MD Technologist:Marc Kirkpatrick, RT(R)(CT) CTDI: DLP: Trnscb Date/Time: 11/09/2019 (0504) [email or web address] Orig Print D/T: S: 11/09/2019 (3572) PAGE 1 Signed Report - CT HEAD/BRAIN W/O [id number] 05:04:00 Name: VAISHALI GILMAN [facility] : 1975 Age/S: 44 / M [address] Unit #: [id number] Loc: [place] [address] Phys: Larissa Samuels MD Acct: [id number] Dis Date: Status: REG ER PHONE #: [phone] Exam Date: 11/09/2019 0400 FAX #: [phone] Reason: Altered Mental Status EXAMS: CPT CODE: [id number] CT HEAD/BRAIN W/O CONT 46257 EXAM: - CT HEAD/BRAIN W/O CONT HISTORY: AMS. TECHNIQUE: Axial tomograms through the brain were obtained without intravenous contrast. This exam was performed according to our departmental dose-optimization program, which includes automated exposure control, adjustment of the mA and/or kV according to patient size and/or use of iterative reconstruction technique. COMPARISON: None available time of interpretation. FINDINGS: There is no intracranial hemorrhage, mass, or mass effect. The ventricular system and sulci are age-appropriate. There is no evidence of acute infarction. The osseous structures show no significant abnormalities. Right globe prosthesis is present. The visualized sinuses are relatively clear. The soft tissues are unremarkable. IMPRESSION: No acute intracranial abnormality with no evidence of intracranial hemorrhage. at 0504 Reported and signed by: Kareem Avitia MD CC: Larissa Samuels MD Technologist:Marc Kirkpatrick, RT(R)(CT) CTDI: DLP: Trnscb Date/Time: 11/09/2019 (0504) [email or web address] Orig Print D/T: S: 11/09/2019 (0507) PAGE 1 Signed Report URINALYSIS [id number] 04:13:00* Test Item Value Reference Range Interpretation Comments UA COLOR (test code = COLU) COLORLESS YELLOW A UA APPEARANCE (test code = APPU) CLEAR CLEAR UA GLUCOSE DIPSTICK (test code = DGLUU) NEGATIVE mg/dL NEGATIVE UA BILIRUBIN DIPSTICK (test code = BILU) NEGATIVE mg/dL NEGATIVE UA KETONE DIPSTICK (test code = KETU) NEGATIVE mg/dL NEGATIVE UA SPECIFIC GRAVITY (test code = SGU) 1.007 1.001-1.035 UA BLOOD DIPSTICK (test code = GAGAN) Negative mg/dL NEGATIVE UA PH DIPSTICK (test code = NADIR) 5.5 5.0-8.0 UA PROTEIN DIPSTICK (test code = PROU) NEGATIVE mg/dL NEGATIVE UA UROBILINIOGEN DIPSTICK (test code = URO) Normal mg/dL NEGATIVE UA NITRITE DIPSTICK (test code = HUNG) NEGATIVE NEGATIVE UA LEUKOCYTE ESTERASE W REFLEX (test code = LEUUR) NEGATIVE Slaud/uL NEGATIVE UA WBC (test code = WBCU) 0-5 per HPF 0-5 UA RBC (test code = RBCU) 0-2 #/HPF 0-5 UA EPITHELIAL CELLS (test code = EPIU) FEW per HPF FEW UA BACTERIA (test code = BACU) NONE SEEN #/HPF NONE UA MUCUS (test code = MUCU) FEW #/LPF FEW Urine Source? Clean CatchDRUGS OF ABUSE SCREEN [id number] 04:13:00* Test Item Value Reference Range Interpretation Comments URN COCAINE (test code = COCAURN) NEGATIVE <300 ng/mL URN CANNABINOIDS (test code = CANNABURN) NEGATIVE <50 ng/mL URN AMPHETAMINE (test code = AMPHETURN) NEGATIVE <1000 ng/mL URN BARBITURATE (test code = BARBITURN) NEGATIVE <200 ng/mL URN BENZODIAZEPINE (test code = BENZOURN) NEGATIVE <200 ng/mL URN OPIATES (test code = OPIATURN) NEGATIVE <300 ng/mL URN PHENCYCLIDINE (PCP) (test code = PHENCURN) NEGATIVE <25 ng/ mL URN METHADONE (test code = METHAURN) NEGATIVE <300 ng/mL Urine Source? Clean CatchLACTIC [id number] 04:09:00* Test Item Value Reference Range Interpretation Comments LACTIC ACID (test code = LACT) 1.3 mmol/L 0.4-1.9 N BASIC METABOLIC [id number] 04:06:00* Test Item Value Reference Range Interpretation Comments SODIUM (test code = NA) 138 mmol/L 136-145 N POTASSIUM (test code = K) 3.8 mmol/L 3.5-5.1 N CHLORIDE (test code = CL) 108.0 mmol/L 98-107 H CARBON DIOXIDE (test code = CO2) 24.0 mmol/L 21-32 N ANION GAP (test code = GAP) 9.8 10-20 L GLUCOSE (test code = GLU) 133 mg/dL 74-106 H BLOOD UREA NITROGEN (test code = BUN) 25 mg/dL 7-18 H GLOMERULAR FILTRATION RATE (test code = GFR) 51 mL/min >=60 Estimated GFR by using Modified MDRD formula.Chronic kidney disease is defined as either kidney damageor GFR <60 mL/min/1.73 m2 for >3 months. CREATININE (test code = CREAT) 1.50 mg/dL 0.7-1.3 H BUN/CREATININE RATIO (test code = BUN/CREA) 16.7 10-20 N CALCIUM (test code = CA) 9.4 mg/dL 8.5-10.1 N HEPATIC FUNCTION [id number] 04:06:00* Test Item Value Reference Range Interpretation Comments TOTAL PROTEIN (test code = PROT) 8.4 gram/dL 6.4-8.2 H ALBUMIN (test code = ALB) 4.1 g/dL 3.4-5.0 N GLOBULIN (test code = GLOB) 4.3 gram/dL 2.7-4.2 H ALBUMIN/GLOBULIN RATIO (test code = A/G) 1.0 0.75-1.50 N BILIRUBIN TOTAL (test code = BILT) 0.40 mg/dL 0.0-1.0 N BILIRUBIN DIRECT (test code = BILD) 0.12 mg/dL 0.0-0.20 N SGOT/AST (test code = AST) 17 IUnit/L 15-37 N SGPT/ALT (test code = ALT) 33 IUnit/L 12-78 N ALKALINE PHOSPHATASE TOTAL (test code = ALKP) 134 IUnit/L 45-117 H Note change in reference range due to change in reagent. THYROID STIMULATING [id number] 04:06:00* Test Item Value Reference Range Interpretation Comments THYROID STIMULATING HORMONE (test code = TSH) 3.250 uIU/mL 0.36-3.7 4 N TSH REFERENCE RANGES: EUTHYROID: 0.35 - 4.3 mIU/mL HYPO : > 5.5 mIU/mL HYPER : < 0.35 mIU/mL [id number] 04:06:00* Test Item Value Reference Range Interpretation Comments TROPONIN-I (test code = TROPI) <0.015 ng/mL 0-0.045 N [id number] 04:06:00* Test Item Value Reference Range Interpretation Comments ALCOHOL (test code = ALC) < 3 mg/dL 0.0-3.0 N -- INTERPRETIVE DATA NOTE: POSITIVE SCREENING RESULTS SHOULD BE CONSIDERED PRESUMPTIVE.WHEN COLLECTED FOR MEDICAL PURPOSES ONLY. SPECIMEN WILL NOTBE COLLECTED BY CHAIN OF CUSTODY.IF A CONFIRMATION OF POSITIVE RESULTS IS DESIRED, ACONFIRMATION TEST MUST BE REQUESTED BY THE PHYSICIAN AT ANADDITIONAL CHARGE TO THE PATIENT. - XR CHEST 1 [id number] 04:03:00 FAX: Larissa Samuels MD [place]: B St: DIS Name: VAISHALI MOHR [facility] : [birth year] Age/S: 44/M [address] [facility] Unit #: [id number] Loc: [address] [place] [address] Phys: Larissa Samuels MD Acct: [id number] Dis Date: [id number] Status: DIS IN PHONE #: [phone] Exam Date: 11/09/2019 0591 FAX #: [phone] Reason: Altered Mental Status EXAMS: CPT CODE: [id number] XR CHEST 1 V 61916 AFTER HOURS SERVICE ON: 11/09/2019 4:03 AM AP Portable Chest Location Code M12 HISTORY: Altered Mental Status FINDINGS: There are no infiltrates. There are no pleural effusions. There is no pneumoth orax. Cardiac silhouette and mediastinum appear within normal limits. IMPRESSION: No active pulmonary findings. at 0403 Reported and signed by: Betsy Marcus M.D. CC: Larissa Samuels MD Technologist: Jax Otoole RT(R) Trnscrd Date/Time/By: 11/09/2019 (0403) : By: [email or web address] Orig Print D/T: S: 11/09/2019 (7) PAGE 1 Signed Report - XR CHEST 1 V 2019-11-09 04:03:00 FAX: Larissa Samuels MD [place]: B St: REG Name: Chapito CEBALLOSVAISHALI [facility] : [birth year] Age/S: 44/M [address] [facility] Unit #: [id number] Loc: [place] [address] Phys: Larissa Samuels MD Acct: [id number] Dis Date: Status: REG ER PHONE #: [phone] Exam Date: 11/09/2019 0344 FAX #: [phone] Reason: Altered Mental Status EXAMS: CPT CODE: [id number] XR CHEST 1 V 46138 AFTER HOURS SERVICE ON: 11/09/2019 4:03 AM AP Portable Chest Location Code M12 HISTORY: Altered Mental Status FINDINGS: There are no infiltrates. There are no pleural effusions. There is no pneumoth orax. Cardiac silhouette and mediastinum appear within normal limits. IMPRESSION: No active pulmonary findings. at 0403 Reported and signed by: Betsy Marcus M.D. CC: Larissa Samuels MD Technologist: Jax Otoole RT(R) Trnscrd Date/Time/By: 11/09/2019 (0403) : By: [email or web address] Orig Print D/T: S: 11/09/2019 (1627) PAGE 1 Signed Report URINALYSIS [id number] 03:56:00* Test Item Value Reference Range Interpretation Comments UA COLOR (test code = COLU) COLORLESS YELLOW A UA APPEARANCE (test code = APPU) CLEAR CLEAR UA GLUCOSE DIPSTICK (test code = DGLUU) NEGATIVE mg/dL NEGATIVE UA BILIRUBIN DIPSTICK (test code = BILU) NEGATIVE mg/dL NEGATIVE UA KETONE DIPSTICK (test code = KETU) NEGATIVE mg/dL NEGATIVE UA SPECIFIC GRAVITY (test code = SGU) 1.007 1.001-1.035 UA BLOOD DIPSTICK (test code = GAGAN) Negative mg/dL NEGATIVE UA PH DIPSTICK (test code = NADIR) 5.5 5.0-8.0 UA PROTEIN DIPSTICK (test code = PROU) NEGATIVE mg/dL NEGATIVE UA UROBILINIOGEN DIPSTICK (test code = URO) Normal mg/dL NEGATIVE UA NITRITE DIPSTICK (test code = HUNG) NEGATIVE NEGATIVE UA LEUKOCYTE ESTERASE W REFLEX (test code = LEUUR) NEGATIVE Salud/uL NEGATIVE UA WBC (test code = WBCU) 0-5 per HPF 0-5 UA RBC (test code = RBCU) 0-2 #/HPF 0-5 UA EPITHELIAL CELLS (test code = EPIU) FEW per HPF FEW UA BACTERIA (test code = BACU) NONE SEEN #/HPF NONE UA MUCUS (test code = MUCU) FEW #/LPF FEW Urine Source? Clean CatchDRUGS OF ABUSE SCREEN [id number] 03:56:00* Test Item Value Reference Range Interpretation Comments URN COCAINE (test code = COCAURN) <300 ng/mL URN CANNABINOIDS (test code = CANNABURN) <50 ng/mL URN AMPHETAMINE (test code = AMPHETURN) <1000 ng/mL URN BARBITURATE (test code = BARBITURN) <200 ng/mL URN BENZODIAZEPINE (test code = BENZOURN) <200 ng/mL URN OPIATES (test code = OPIATURN) <300 ng/mL URN PHENCYCLIDINE (PCP) (test code = PHENCURN) <25 ng/ mL URN METHADONE (test code = METHAURN) <300 ng/mL Urine Source? Clean CatchBASIC METABOLIC [id number] 03:51:00* Test Item Value Reference Range Interpretation Comments SODIUM (test code = NA) 138 mmol/L 136-145 N POTASSIUM (test code = K) 3.8 mmol/L 3.5-5.1 N CHLORIDE (test code = CL) 108.0 mmol/L 98-107 H CARBON DIOXIDE (test code = CO2) mmol/L 21-32 ANION GAP (test code = GAP) 10-20 GLUCOSE (test code = GLU) mg/dL 74-106 BLOOD UREA NITROGEN (test code = BUN) mg/dL 7-18 GLOMERULAR FILTRATION RATE (test code = GFR) mL/min >=60 CREATININE (test code = CREAT) mg/dL 0.7-1.3 BUN/CREATININE RATIO (test code = BUN/CREA) 10-20 CALCIUM (test code = CA) mg/dL 8.5-10.1 HEPATIC FUNCTION [id number] 03:51:00* Test Item Value Reference Range Interpretation Comments TOTAL PROTEIN (test code = PROT) gram/dL 6.4-8.2 ALBUMIN (test code = ALB) g/dL 3.4-5.0 GLOBULIN (test code = GLOB) gram/dL 2.7-4.2 ALBUMIN/GLOBULIN RATIO (test code = A/G) 0.75-1.50 BILIRUBIN TOTAL (test code = BILT) mg/dL 0.0-1.0 BILIRUBIN DIRECT (test code = BILD) mg/dL 0.0-0.20 SGOT/AST (test code = AST) IUnit/L 15-37 SGPT/ALT (test code = ALT) IUnit/L 12-78 ALKALINE PHOSPHATASE TOTAL (test code = ALKP) IUnit/L 45-117 THYROID STIMULATING [id number] 03:51:00* Test Item Value Reference Range Interpretation Comments THYROID STIMULATING HORMONE (test code = TSH) uIU/mL 0.36-3.7 4 [id number] 03:51:00* Test Item Value Reference Range Interpretation Comments TROPONIN-I (test code = TROPI) ng/mL 0-0.045 [id number] 03:51:00* Test Item Value Reference Range Interpretation Comments ALCOHOL (test code = ALC) mg/dL 0-3 CBC W/AUTO [id number] 03:39:00* Test Item Value Reference Range Interpretation Comments WHITE BLOOD CELL (test code = WBC) 14.5 K/mm3 4.5-12.5 H RED BLOOD CELL (test code = RBC) 5.79 mill/mm3 4.0-5.8 N HEMOGLOBIN (test code = HGB) 16.2 gram/dL 13.0-17.5 N HEMATOCRIT (test code = HCT) 50.9 % 42.0-52.0 N MEAN CELL VOLUME (test code = MCV) 87.9 fL 80-98 N MEAN CELL HGB (test code = MCH) 28.0 picogram 27.0-33.0 N MEAN CELL HGB CONCETRATION (test code = MCHC) 31.8 gram/dL 33.0-36. 0 L RED CELL DISTRIBUTION WIDTH (test code = RDW) 14.0 % 11.6-16. 2 N RED CELL DISTRIBUTION WIDTH SD (test code = RDW-SD) 44.7 fL 37 .0-51.0 N PLATELET COUNT (test code = PLT) 178 K/mm3 150-450 N MEAN PLATELET VOLUME (test code = MPV) 11.5 fL 6.7-11.0 H NEUTROPHIL % (test code = NT%) 81.1 % 39.0-69.0 H IMMATURE GRANULOCYTE % (test code = IG%) 0.6 % 0.0-5.0 N LYMPHOCYTE % (test code = LY%) 9.8 % 25.0-55.0 L MONOCYTE % (test code = MO%) 7.2 % 0.0-10.0 N EOSINOPHIL % (test code = EO%) 1.2 % 0.0-5.0 N BASOPHIL % (test code = BA%) 0.1 % 0.0-1.0 N NUCLEATED RBC % (test code = NRBC%) 0.0 % 0-0 N NEUTROPHIL # (test code = NT#) 11.73 K/mm3 1.8-7.7 H IMMATURE GRANULOCYTE # (test code = IG#) 0.08 x10 3/uL 0-0.03 H LYMPHOCYTE # (test code = LY#) 1.42 K/mm3 1.0-5.0 N MONOCYTE # (test code = MO#) 1.04 K/mm3 0-0.8 H EOSINOPHIL # (test code = EO#) 0.18 K/mm3 0.0-0.5 N BASOPHIL # (test code = BA#) 0.02 K/mm3 0.0-0.2 N NUCLEATED RBC # (test code = NRBC#) 0.00 K/mm3 0.0-0.1 N MANUAL DIFF REQUIRED (test code = MDIFF) NO [id number] 17:38:00* Test Item Value Reference Range Interpretation Comments GLUBED (test code = GLUBED) 174 MG/DL 70-105 H BASIC METABOLIC [id number] 18:08:00* Test Item Value Reference Range Interpretation Comments SODIUM (test code = NA) 136 MMOL/L 136-143 N POTASSIUM (test code = K) 4.5 MMOL/L 3.5-5.1 N CHLORIDE (test code = CL) 101 MMOL/L 98-107 N CARBON DIOXIDE (test code = CO2) 19 mmol/L 24-31 L GLUCOSE (test code = GLU) 307 mg/dL 70-104 H BLOOD UREA NITROGEN (test code = BUN) 25.5 MG/DL 7.0-21.0 H GLOMERULAR FILTRATION RATE (test code = GFR) 47 >60 L The estimated glomerular filtration rate is computed usingpatient race, age (>18), sex, and serum creatinine. If anyof the needed data elements are missing the Laboratory cannot compute an estimation of the glomerular filtration rate. CREATININE (test code = CREAT) 1.7 mg/dL 0.8-1.5 H CALCIUM (test code = CA) 8.7 mg/dL 8.8-10.2 L CBC W/AUTO [id number] 17:45:00* Test Item Value Reference Range Interpretation Comments WHITE BLOOD CELL (test code = WBC) 8.8 x10 3/uL 4.8-10.8 N RED BLOOD CELL (test code = RBC) 5.10 x10 6/uL 4.70-6.10 N HEMOGLOBIN (test code = HGB) 14.9 g/dL 14.5-20 N HEMATOCRIT (test code = HCT) 45.7 % 42.0-52.0 N MEAN CELL VOLUME (test code = MCV) 89.6 fL 80.0-94.0 N MEAN CELL HGB (test code = MCH) 29.2 pg 27-31 N MEAN CELL HGB CONCENTRATION (test code = MCHC) 32.6 G/DL 33-36.5 L RED CELL DISTRIBUTION WIDTH (test code = RDW) 13.6 % 12.9-16. 9 N PLATELET COUNT (test code = PLT) 160 150-440 N MEAN PLATELET VOLUME (test code = MPV) 11.5 fL 8.9-12.4 N NEUTROPHIL % (test code = NT%) 65.1 % 42.2-75.2 N LYMPHOCYTE % (test code = LY%) 22.3 % 20.5-51.1 N MONOCYTE % (test code = MO%) 9.4 % 1.7-9.3 H EOSINOPHIL % (test code = EO%) 2.2 % 0.0-7.0 N BASOPHIL % (test code = BA%) 0.2 % 0-2.5 N NEUTROPHIL # (test code = NT#) 5.74 x10 3/uL 1.80-7.70 N LYMPHOCYTE # (test code = LY#) 1.97 x10 3/uL 1.00-4.80 N MONOCYTE # (test code = MO#) 0.83 x10 3/uL 0.00-0.80 H EOSINOPHIL # (test code = EO#) 0.19 x10 3/uL 0.00-0.45 N BASOPHIL # (test code = BA#) 0.02 x10 3/uL 0.0-0.20 N XR CHEST 2V, [id number] 09:13:80B16WULJ: XR CHEST 2V, PA/LATHISTORY: COUGHCOMPARISON: NoneFINDINGS:The lungs are clear. No pleural effusion or pneumothorax. The cardiacsilhouette is within normal limits. No acute osseous abnormalities.IMPRESSION:No acute cardiopulmonary disease.
[2020-08-09 15:15] VITALS: BP 139/60
[2020-08-09] MEDS ORDERED: HYDROMORPHONE 20MG/ NS 100ML IV PRN (16:30)
[2020-08-09 16:31] VITALS: BP 139/60
[2020-08-09 16:43] VITALS: BP 139/60
[2020-08-09] MEDS ORDERED: DEXTROSE 50% SYRINGE 50 ML IV PRN (16:45)
[2020-08-09] MEDS ORDERED: ALBUTEROL SULFATE HFA 8GM INHALATION AEROSOL INH PRN (16:45)
[2020-08-09] MEDS: HYDROMORPHONE 1MG/1ML INJ IV PRN ×2 (17:24→21:40)
[2020-08-09 19:40] VITALS: BP 140/66
[2020-08-09] MEDS: HYDROCODONE/APAP 10MG-325MG TAB PO PRN (20:21)
[2020-08-09] MEDS: INSULIN LISPRO 100 UNIT/1 ML 3ML VIAL SQ SCH (20:48)
[2020-08-09] MEDS: PRAVASTATIN 20 MG TAB PO SCH (20:52)
[2020-08-09] MEDS ORDERED: CEFTRIAXONE SOD 1 GM/NS 50 ML 50 ML IV SCH (21:00)
[2020-08-09 22:34] VITALS: BP 140/66
--- NOTE | 2020-08-09 23:16 | NUR ---
shanika allen ([facility]) r/e fever
[2020-08-09] MEDS ORDERED: CEFEPIME 1GM/NS 0.9% 50 ML 50 ML IV SCH (23:30)
[2020-08-09] MEDS: VANCOMYCIN 1GM/NS 250 ML 250 ML IV SCH (23:30)
[2020-08-09] MEDS ORDERED: ACETAMINOPHEN 325 MG TAB PO PRN (23:30)
[2020-08-09 23:35] VITALS: BP 124/61
[2020-08-10] VITALS (7 sets, daily range): BP systolic 132–169; BP diastolic 62–68
[2020-08-10] MEDS: HYDROMORPHONE 1MG/1ML INJ IV PRN ×2 (01:43→07:11)
[2020-08-10] MEDS: ONDANSETRON HCL INJ 2MG/ML 2ML 2 MG/ML VIAL IV PRN ×3 (05:29→14:51)
[2020-08-10 06:21] LABS: BASOPHILS % 0.1 % (0.0-1.0); EOSINOPHILS % 0.4 % (0.0-6.0); HEMATOCRIT 32.2 % (38.2-49.6); HEMOGLOBIN 10.1 g/dL (14.0-18.0); LYMPHOCYTES # (AUTO) 0.6 (1.0-3.2); MEAN CORPUSCULAR HEMOGLOBIN 29.3 pg (28-32); MEAN CORPUSCULAR HGB CONC 31.4 g/dL (31-35); MEAN CORPUSCULAR VOLUME 93.3 fL (81-99); MONOCYTES % 10.3 % (4.4-11.3); NEUTROPHILS # (AUTO) 7.8 (2.1-6.9); NEUTROPHILS % 82.4 % (38.7-80.0); PLATELET COUNT 109 x10e3/uL (140-360); RED BLOOD COUNT 3.45 x10e6/uL (4.3-5.7); RED CELL DISTRIBUTION WIDTH 13.8 % (11.7-14.4)
[2020-08-10 06:43] LABS: ALBUMIN 2.7 g/dL (3.5-5.0); ALBUMIN/GLOBULIN RATIO 0.8 (0.8-2.0); ANION GAP 11.9 mmol/L (8-16); CALCIUM 8.1 mg/dL (8.4-10.2); CREATININE, SERUM 2.12 mg/dL (0.72-1.25); POTASSIUM 4.9 mmol/L (3.5-5.1)
--- NOTE | 2020-08-10 07:00 | NUR ---
RECEIVED BEDSIDE SHIFT REPORT FROM OFF GOING NIGHT NURSE. PATIENT IN STABLE CONDITION, NO S/S OF DISTRESS NOTED. PATIENT ABLE TO VOICE NEEDS. RESPIRATIONS EVEN AND NONLABORED. IV SITE ASYMPTOMATIC AND PATIENT, TRANSPARENT DRESSING C/D/I. BED IN LOWEST POSITION AND LOCKED, SIDE RAILS X 2, NONSKID SOCKS APPLIED. CALL LIGHT WITHIN REACH.
[2020-08-10] MEDS: INSULIN LISPRO 100 UNIT/1 ML 3ML VIAL SQ SCH ×4 (07:30→19:56)
[2020-08-10] MEDS: GABAPENTIN 100 MG CAP PO SCH (08:45)
[2020-08-10] MEDS: METOPROLOL TARTRATE 25 MG TAB PO SCH (08:45)
[2020-08-10] MEDS: ASPIRIN 81 MG CHEW TAB PO SCH (08:45)
[2020-08-10] MEDS: PAROXETINE HCL 20 MG TAB PO SCH (08:46)
[2020-08-10] MEDS ORDERED: GABAPENTIN 100 MG CAP PO SCH (09:00)
[2020-08-10] MEDS ORDERED: MYCOPHENOLATE MOFETIL 250 MG CAP PO SCH (09:00)
[2020-08-10] MEDS: HYDROCODONE/APAP 10MG-325MG TAB PO PRN ×2 (12:19→18:28)
[2020-08-10] MEDS: PROMETHAZINE 12.5MG/ NACL 0.9% 12.5 MG/50 ML BAG IV PRN ×2 (12:20→19:30)
[2020-08-10] MEDS ORDERED: MEROPENEM 1GM 100 ML IV SCH (15:00)
--- NOTE | 2020-08-10 15:05 | NUR ---
NOTIFIED ABOUT A CALLED RECEIVED FROM [facility] ABOUT A CULTURE RESULTING WITH KLEBSIELLA PNEUMONIAE ESBL ( ON 08/07 LEFT ARM DRAW). RECEIVED AN ORDER FOR MEROPENEM 1GM Q 8 HRS.
[2020-08-10] MEDS ORDERED: SODIUM CHLORIDE 0.9% 250ML 250 ML ONE (15:22)
--- NOTE | 2020-08-10 15:58 | NUR ---
NOTIFIED ABOUT THE PATIENT RUNNING A TEMP. OF 102.8 TYLENOL WAS GIVEN.
--- NOTE | 2020-08-10 17:06 | NUR ---
INFECTIOUS DISEASE CONSULT NOTE DR. ANTONY KEATING CC: scrotal cellulitis HPI: this is a very pleasant 45 year old male who presented as a direct admit with scrotal cellulitis and infected penile implant. The patient was recently seen at [facility], cultures grew klebsiella. Unclear susceptibilities. PMH: blindness, HTN, obesity, T2dm SURGICAL HX: penile implant SOCIAL HX: denies smoking/drinking/drugs FAMILY: HTN ROS: +scrotal pain ALL 14 POINT ROS NEG UNLESS NOTED PHYSICAL EXAM: GENERAL: awake, alert HEENT: normocephalic, atraumatic CV: s1, s2, no s3, s4 CHEST: diminished, symmetric expansion ABD: soft, non-tender, no distension, scrotal redness EXT: moves all, no joint swelling NEURO: no large motor deficit, blindness LABS: per chart RADIOLOGY: per chart IMPRESSION: scrotal cellulitis penile implant infection t2dm sepsis present on admission PEDRO on CKD PLAN: merrem vancomycin supportive care CASSANDRA GLEASON MSN, [employer], AGACNP-BC EXAMINED WITH DR ANTONY KEATING
[2020-08-10] MEDS: MYFORTIC 180 MG PO SCH (18:00)
--- NOTE | 2020-08-10 18:56 | NUR ---
COMPLETED BEDSIDE SHIFT REPORT AND ROUNDING WITH ONCOMING NIGHT NURSE. PATIENT IN STABLE CONDITION, NO S/S OF DISTRESS NOTED. PATIENT ABLE TO VOICE NEEDS. RESPIRATIONS EVEN AND NONLABORED. IV SITE ASYMPTOMATIC AND PATIENT, TRANSPARENT DRESSING C/D/I. BED IN LOWEST POSITION AND LOCKED, SIDE RAILS X 2. CALL LIGHT WITHIN REACH.
[2020-08-10] MEDS: PRAVASTATIN 20 MG TAB PO SCH (21:00)
--- NOTE | 2020-08-10 22:10 | Diagnostic Imaging Report ---
EXAMINATION: CHEST SINGLE (PORTABLE) INDICATION: ^r/o pna COMPARISON: 07/27/2020 FINDINGS: AP view TUBES and LINES: None. LUNGS: Limited by body habitus and low lung volumes. Pulmonary vascular congestion. PLEURA: No significant pleural effusion or pneumothorax. HEART AND MEDIASTINUM: The cardiomediastinal silhouette is enlarged. BONES AND SOFT TISSUES: No acute osseous lesion. Soft tissues are unremarkable. UPPER ABDOMEN: No free air under the diaphragm. IMPRESSION: Enlarged cardiomediastinal silhouette and pulmonary vascular congestion, accentuated by low lung volumes and technique. Underlying pneumonia cannot be excluded. Signed by: Dr. Acosta Leavitt MD on 08/10/2020 10:07 PM
[2020-08-10] MEDS: VANCOMYCIN 1GM/NS 250 ML 250 ML IV SCH (23:23)
[2020-08-11] VITALS (8 sets, daily range): BP systolic 149–184; BP diastolic 45–74
[2020-08-11] MEDS: MYFORTIC 180 MG PO SCH ×2 (06:00→07:06)
--- NOTE | 2020-08-11 06:34 | NUR ---
RECEIVED BEDSIDE SHIFT REPORT FROM OFF GOING NURSE. PATIENT IS IN STABLE CONDITION, NO ACUTE DISTRESS NOTED. CALL LIGHT WITHIN REACH. BED IN THE LOWEST POSITION. BED ALARM ON.
[2020-08-11] MEDS: HYDROCODONE/APAP 10MG-325MG TAB PO PRN ×2 (07:06→21:06)
[2020-08-11] MEDS ORDERED: PROGRAF1 MG PO (08:39)
[2020-08-11] MEDS: PAROXETINE HCL 20 MG TAB PO SCH (08:45)
[2020-08-11] MEDS: ASPIRIN 81 MG CHEW TAB PO SCH (08:45)
[2020-08-11] MEDS: INSULIN LISPRO 100 UNIT/1 ML 3ML VIAL SQ SCH ×4 (08:45→21:07)
[2020-08-11] MEDS: GABAPENTIN 100 MG CAP PO SCH (08:45)
[2020-08-11] MEDS: METOPROLOL TARTRATE 25 MG TAB PO SCH (08:45)
[2020-08-11] MEDS ORDERED: MYFORTIC360 MG PO (09:45)
--- NOTE | 2020-08-11 10:53 | NUR ---
NOTIFIED DR. GARBER OF [facility] ML. PER MD, HE WILL BE ROUNDING SOON. GET UROLOGY CART AT BEDSIDE.
--- NOTE | 2020-08-11 12:05 | Progress Note ---
DATE: SUBJECTIVE: Mr. Gilman is doing well. There are no new complaints. His pain is still there. REVIEW OF SYSTEMS: Otherwise unremarkable. PHYSICAL EXAMINATION: GENERAL: He is currently alert and oriented. VITAL SIGNS: Stable, afebrile. He is having fever 100.3. HEENT: He is not icteric. NECK: Supple. CHEST: Clear. HEART: S1 and S2. ABDOMEN: Soft. Bowel sounds present. EXTREMITIES: No edema. : The penis remains redness and swelling. IMPRESSIONS: Cellulitis of scrotum. Continue meropenem. Discontinue vancomycin. Urology is following. We will discuss with Urology about the plan of care. Diabetic control. Recheck CBC. Recheck chem panel. Anemia of chronic disease, obesity, diabetes mellitus, and chronic kidney disease. We will adjust kidney function. We will follow. MD SRINIVASAN Martins/SHADY /[id number]
[2020-08-11 12:58] LABS: INR 1.12
--- NOTE | 2020-08-11 14:35 | NUR ---
PATIENT OFF UNIT AT THIS TIME.
[2020-08-11] MEDS ORDERED: ONDANSETRON HCL INJ 2MG/ML 2ML 2 MG/ML VIAL ONE (15:06)
[2020-08-11] MEDS ORDERED: LIDOCAINE HCL 1% LOCAL INJ 20 ML VIAL ONE (15:23)
[2020-08-11] MEDS ORDERED: SODIUM CHLORIDE 0.9% 250ML 250 ML ONE (15:23)
[2020-08-11] MEDS ORDERED: IOPAMIDOL 300MG/ML 100 ML INFUS..BTL IV ONE (15:28)
[2020-08-11] MEDS ORDERED: FENTANYL CITRATE/PF 100MCG/2 ML INJ ONE (15:41)
--- NOTE | 2020-08-11 16:38 | Diagnostic Imaging Report ---
PROCEDURE: Suprapubic catheter placement Procedural Personnel Attending physician(s): Devon Young MD Fellow physician(s): None Resident physician(s): None Advanced practice provider(s): None Pre-procedure diagnosis: Urinary retention after pain prosthesis placement. Unable to place Sandhu catheter due to swelling. Post-procedure diagnosis: Same Indication: Urinary retention. Unable to place Sandhu catheter. Fever. Additional clinical history: None Complications: No immediate complications. IMPRESSION: Image-guided 10French suprapubic multipurpose drainage catheter placement. Plan: Trace gravity bag. Upsize to a balloon retention Sandhu catheter once patient is nothing by mouth unable to tolerate the procedure. PROCEDURE SUMMARY - Fluoroscopic and ultrasound guided placement of suprapubic bladder catheter - Additional procedure(s): None PROCEDURE DETAILS: Pre-procedure Consent: Informed consent for the procedure including risks, benefits and alternatives was obtained and time-out was performed prior to the procedure. Preparation: The site was prepared and draped using maximal sterile barrier technique including cutaneous antisepsis. Anesthesia/sedation Level of anesthesia/sedation: No sedation Anesthesia/sedation administered by: Not applicable Total intra-service sedation time (minutes): Not applicable Suprapubic catheter placement Local anesthesia was administered. The bladder was sufficiently distended for tube placement. Using imaging guidance as specified in the procedure summary, a suprapubic catheter was advanced into the bladder using trocar technique. The catheter however would not draw back as there was a kink at the level of the insertion into the urinary bladder. A Glidewire was used through the indwelling catheter to traverse the kink. The catheter was removed and a Kumpe catheter was placed and intrabladder location was confirmed with contrast injection. A stiff Amplatz wire was placed and the 10 Greek drainage catheter was advanced over the wire. Suprapubic catheter placed: 10 Greek multipurpose drainage catheter Findings: Severe distended urinary bladder, with significant urinary drainage after placement of multiple venous drainage catheter. Internal catheter securement: [place] loop External catheter securement: Non-absorbable suture Contrast Contrast agent: Omnipaque 300 Contrast volume (mL): 20 Radiation Dose Fluoroscopy time (minutes): 4.1 Reference air kerma (mGy): 94.2 Additional Details Additional description of procedure: None Equipment details: None Specimens removed: None. A sample was not sent for analysis. Estimated blood loss (mL): Less than 10 Standardized report: [id number] Attestation Signer name: Devon Young MD I attest that I was present for the entire procedure. I reviewed the stored images and agree with the report as written. Signed by: Devon Young MD on 08/11/2020 4:35 PM
--- NOTE | 2020-08-11 16:48 | NUR ---
PATIENT BACK TO UNIT FROM PROCEDURE.
--- NOTE | 2020-08-11 16:48 | NUR ---
PATIENT IS IN STABLE CONDITION. SP CATHETER NOTED. SITE IS C/D/I.
[2020-08-11] MEDS: MEROPENEM 1GM 100 ML IV SCH (16:52)
[2020-08-11] MEDS: SODIUM BICARBONATE 650 MG TAB PO SCH (16:53)
[2020-08-11] MEDS: MYCOPHENOLATE SODIUM 360 MG PO SCH (16:54)
[2020-08-11] MEDS: TACROLIMUS 1 MG CAP PO SCH (16:54)
--- NOTE | 2020-08-11 18:17 | Consultation ---
DATE OF CONSULTATION: HISTORY OF PRESENT ILLNESS: Please refer to my consultation chart. This is a late entry. The patient who is a legally blind with hypertension, obesity, and diabetes mellitus, who had a penile implant, originally came to an outside facility. He was transferred here because of redness and swelling of the scrotum and penile implant. The patient was currently seen by Urology, Dr. Ashby. The patient's apparently cultures showing ESBL. I was consulted to see him. When I see the patient, he is currently alert, oriented, does not seem to be in acute distress.. PAST MEDICAL HISTORY: As above. PAST SURGICAL HISTORY: As above. ALLERGIES: NKA. SOCIAL HISTORY: There is no smoking, drug abuse, or alcohol abuse. FAMILY HISTORY: Hypertension. REVIEW OF SYSTEMS: Besides redness and swelling and penis pain, he denies any. PHYSICAL EXAMINATION: GENERAL: Currently alert and oriented, does not seem to be in acute distress. VITAL SIGNS: Stable, currently afebrile. HEENT: He is not icteric. NECK: Supple. CHEST: Clear bilateral. HEART: S1, S2. ABDOMEN: Soft. Bowel sounds present. EXTREMITIES: No edema. GENITOURINARY: The penis, there is erythema, there is edema. IMPRESSIONS: Scrotal cellulitis, penile implant infection, and diabetes mellitus type 2. meropenem and vancomycin. However, we were contacted later that night that the urine showing ESBL, so we will stop the vancomycin. Urology is following. Probably, we will need to remove the penile implant if possible. Continue IV antibiotic. Diabetic control. Pain control. Recheck CBC. Recheck Chem panel. We will follow. MD SRINIVASAN Martins/SHADY /[id number]
--- NOTE | 2020-08-11 18:53 | NUR ---
BEDSIDE SHIFT REPORT GIVEN TO ONCOMING NURSE. PATIENT IS RESTING IN BED, NO ACUTE DISTRESS NOTED AT THIS TIME. CALL LIGHT WITHIN REACH. BED IN THE LOWEST POSITION.
[2020-08-11] MEDS: PRAVASTATIN 20 MG TAB PO SCH (21:05)
--- NOTE | 2020-08-11 21:27 | Consultation ---
DATE OF CONSULTATION: 08/11/2020 Consultation Note HISTORY OF PRESENT ILLNESS: 45-year-old gentleman who has underlying history of diabetes with end-organ damage, he is legally blind, had kidney failure, was on dialysis, got kidney transplant, now he is 8 years out. Creatinine of 2.12, bicarb 16, sodium 131, white count 9.4, hemoglobin 10.1. He is maintained on mycophenolate mofetil and Prograf. He also has history of hypertension, anemia, admitted with scrotal cellulitis. Currently lying supine. Denies fever, chills, chest pain, shortness of breath. ALLERGIES: HE IS ALLERGIC TO PENICILLIN. Infectious Disease on the case, started on meropenem. CURRENT MEDICATIONS: Metoprolol 25 mg daily, Tylenol p.r.n., aspirin 81 mg daily, paroxetine 20 mg daily, ondansetron p.r.n., gabapentin 100 mg daily, pravastatin 10 mg at bedtime, hydromorphone p.r.n., insulin lispro. SOCIAL HISTORY: Does not smoke or drink. FAMILY HISTORY: Significant for hypertension and diabetes. PHYSICAL EXAMINATION: VITAL SIGNS: Blood pressure is 149/45, pulse rate 75, temperature 100, oxygen saturation 96%. GENERAL: Awake, alert, oriented, lying supine, no apparent distress. HEENT: Oral mucosa moist. NECK: No JVD. LUNGS: Relatively clear. HEART: S1, S2 audible. ABDOMEN: Distended, soft. EXTREMITIES: Lower extremity, no edema. : Scrotum, detailed examination not done, please see Urology note. IMPRESSION AND PLAN: Scrotal cellulitis, followed by Urology, Infectious Disease, cadaveric renal transplant, chronic kidney disease stage 3, underlying distal renal tubular acidosis. We will start sodium bicarbonate. Continue immunosuppressive medications, please see orders. Miguel Vyas MD SAK/MODL /[id number]
--- NOTE | 2020-08-11 21:43 | NUR ---
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 Patient had penile implant 07/30/20 at [facility] and reportedly was healing well after surgery. He then began to develop pain and swelling around his penis and testicles, was prescribed a course of antibiotics by Dr Wagoner which patient didn't take. His pain became uncontrollable and presented to [facility] where he was admitted, cultures demonstrated ESBL Klebsiella and was started on Vancomycin and Gentamicin. Decision was made to transfer to [facility] for further management. Here at [facility] he is being managed by Dr Ashby (Urology), Dr Branch (ID), and Dr Vyas (Nephrology). He is being treated with Meropenem and Vancomycin, however vancomycin has since been stopped once it was realized cultures showed ESBL Klebsiella. Internal medicine consulted for management of his chronic medical conditions. Home Medications - see medication reconciliation Review of Systems General: No fever, chills, or fatigue HEENT: +blind at baseline; No hearing loss, congestion, rhinorrhea, or bleeding Respiratory: No SOB, cough, or hemoptysis Cardiovascular: No chest pain, palpitations, GR, orthopnea, PND, leg edema, or claudication Gastrointestinal: No nausea, vomiting, diarrhea, constipation, or abdominal pain G/U: + dysuria, +difficulty urinating, + discharge; No hematuria or incontinence Musculoskeletal: No myalgias or arthralgias Neurological: No syncope, seizures, headaches, changes in sensation, or weakness Hematology: No bruising, bleeding, or lymphadenopathy Endocrine: No heat or cold intolerance, hair loss, or weight changes Skin: No rashes, sores, itching, bruising Psychiatric: Denies depression or elevated mood, or anxiety Past Medical History T2DM complicated by total blindness and ESRD ESRD s/p renal transplant 2012 HTN HLD Past Surgical History Penile implant 07/30/2020 Family History Non contributory Social History Does not drink, smoke, or use drugs Allergies Penicillins Physical Exam Vitals: Temp: 99.5P: 79BP: 156/67RR: 21SpO2: 95% General Appearance: The patient is alert, oriented and in no acute distress. Appears euvolemic. Skin: Warm and hydrated without any rash. HEENT: Head is normocephalic, atraumatic. Nontender sinuses. +cataracts; +total blindness in both eyes. The nares are patent. Oropharynx is moist and clear without lesions. Neck: Supple without lymphadenopathy. No JVD. 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 Normal S1 and S2 without S3/S4. No murmurs, rubs or gallops. Peripheral pulses symmetric +2. Respiratory / Chest: No crackles or wheezes are heard. Symmetric breath sounds. Preserved chest expansion. Abdomen: Soft, nontender, nondistended with good bowel sounds heard. No clinical organomegaly. Renal: There is no costovertebral angle tenderness. Extremities: Without cyanosis, clubbing or edema. Preserved ROM. Neurological: Gross nonfocal. Patient oriented x 3. Cranial nerves II - XII Grossly intact. DTRs +2. MS: 5/5 globally. Genital: scrotal redness, penile swelling, suprapubic catheter in place Labs/Imaging: all pertinent labs and diagnostic imaging were reviewed Assessment/Plan #Penile implant infection #Scrotal cellulitis - ESBL Klebsiella on [facility] cultures; sensitivities had not yet been finalized - Dr Branch consulted, appreciate assistance - agree with meropenem; agree that his implant likely needs to be removed #Urinary retention 2/2 penile implant infection - Dr Ashby took patient to OR for suprapubic cather placement today - urinary retention will likely resolved after his penile swelling and infection improves #HTN - hypertensive at this time, only on metoprolol 25mg daily - will start nifedipine 30mg daily - will avoid starting ACEi/ARB given renal function #T2DM - Humalog sliding scale started - will monitor glucose and start basal insulin as necessary #Prior history of ESRD s/p renal transplant 2012 not on HD #CKD, likely stage 3 - avoid nephrotoxic agents - continue immunosuppressive medications: Tacrolimus and Mycophenolate - Dr Vyas consulted, appreciate assistance #HLD - pravastatin I have spent 70 minutes [id number] time with patient, reviewing clinical data, and formulating plan of treatment. Albin Andrade MD Internal Medicine
[2020-08-12] VITALS (8 sets, daily range): BP systolic 119–175; BP diastolic 59–79
[2020-08-12] MEDS: HYDROCODONE/APAP 10MG-325MG TAB PO PRN ×2 (05:12→17:08)
[2020-08-12] MEDS: TACROLIMUS 1 MG CAP PO SCH ×2 (05:12→16:52)
[2020-08-12] MEDS: MYCOPHENOLATE SODIUM 360 MG PO SCH ×2 (06:00→16:52)
[2020-08-12 06:46] LABS: BASOPHILS % 0.1 % (0.0-1.0); EOSINOPHILS # (AUTO) 0.1 (0.0-0.4); HEMATOCRIT 31.9 % (38.2-49.6); HEMOGLOBIN 10.1 g/dL (14.0-18.0); LYMPHOCYTES # (AUTO) 0.8 (1.0-3.2); LYMPHOCYTES % 11.5 % (18.0-39.1); MEAN CORPUSCULAR HEMOGLOBIN 28.9 pg (28-32); MEAN CORPUSCULAR HGB CONC 31.7 g/dL (31-35); MEAN CORPUSCULAR VOLUME 91.4 fL (81-99); MONOCYTES # (AUTO) 0.8 (0.2-0.8); MONOCYTES % 10.4 % (4.4-11.3); NEUTROPHILS # (AUTO) 5.6 (2.1-6.9); NEUTROPHILS % 76.6 % (38.7-80.0); PLATELET COUNT 118 x10e3/uL (140-360); RED BLOOD COUNT 3.49 x10e6/uL (4.3-5.7); RED CELL DISTRIBUTION WIDTH 13.5 % (11.7-14.4)
--- NOTE | 2020-08-12 07:10 | NUR ---
PATIENT IS ALERT AND IN STABLE CONDITION WITH NO S/S OF RESPIRATORY DISTRESS. NO PAIN VOICED AT THIS TIME. SUPRAPUBIC INTACT AND DRAINING; URINE IS YELLOW AND CLEAR. BED ALARM APPLIED. CALL LIGHT IS WITHIN REACH- PATIENT INSTRUCTED TO CALL FOR ASSISTANCE NEEDED.
[2020-08-12 07:15] LABS: ALBUMIN 2.8 g/dL (3.5-5.0); ALBUMIN/GLOBULIN RATIO 0.7 (0.8-2.0); CALCIUM 8.6 mg/dL (8.4-10.2); CREATININE, SERUM 1.88 mg/dL (0.72-1.25)
[2020-08-12] MEDS: INSULIN LISPRO 100 UNIT/1 ML 3ML VIAL SQ SCH ×4 (07:30→20:48)
[2020-08-12 07:48] LABS: MAGNESIUM 1.9 MG/DL (1.3-2.1); PHOSPHORUS 2.6 MG/DL (2.3-4.7)
[2020-08-12] MEDS: HYDROMORPHONE 1MG/1ML INJ IV PRN (07:57)
[2020-08-12] MEDS: PAROXETINE HCL 20 MG TAB PO SCH (08:00)
[2020-08-12] MEDS: NIFEDIPINE CR 30 MG TAB PO SCH (08:00)
[2020-08-12] MEDS: GABAPENTIN 100 MG CAP PO SCH (08:00)
[2020-08-12] MEDS: ASPIRIN 81 MG CHEW TAB PO SCH (08:00)
[2020-08-12] MEDS: METOPROLOL TARTRATE 25 MG TAB PO SCH (08:00)
[2020-08-12] MEDS: SODIUM BICARBONATE 650 MG TAB PO SCH ×2 (08:00→21:11)
[2020-08-12 08:10] LABS: CALCIUM IONIZED 1.2 mmol/L (1.09-1.30)
[2020-08-12] MEDS ORDERED: SODIUM BICARBONATE 650 MG TAB PO SCH (14:00)
[2020-08-12] MEDS: MEROPENEM 1GM 100 ML IV SCH (16:52)
--- NOTE | 2020-08-12 18:07 | NUR ---
IM Consultation Subjective 08/12: doing well today, states he is not in much pain. BP is improved after starting procardia. 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 Patient had penile implant 07/30/20 at [facility] and reportedly was healing well after surgery. He then began to develop pain and swelling around his penis and testicles, was prescribed a course of antibiotics by Dr Wagoner which patient didn't take. His pain became uncontrollable and presented to [facility] where he was admitted, cultures demonstrated ESBL Klebsiella and was started on Vancomycin and Gentamicin. Decision was made to transfer to [facility] for further management. Here at [facility] he is being managed by Dr Ashby (Urology), Dr Branch (ID), and Dr Vyas (Nephrology). He is being treated with Meropenem and Vancomycin, however vancomycin has since been stopped once it was realized cultures showed ESBL Klebsiella. Internal medicine consulted for management of his chronic medical conditions. Physical Exam Vitals: Temp: 98.7P: 66BP: 131/59RR: 18SpO2: 98% General Appearance: The patient is alert, oriented and in no acute distress. Appears euvolemic. Skin: Warm and hydrated without any rash. HEENT: Head is normocephalic, atraumatic. Nontender sinuses. +cataracts; +total blindness in both eyes. The nares are patent. Oropharynx is moist and clear without lesions. Neck: Supple without lymphadenopathy. No JVD. 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 Normal S1 and S2 without S3/S4. No murmurs, rubs or gallops. Peripheral pulses symmetric +2. Respiratory / Chest: No crackles or wheezes are heard. Symmetric breath sounds. Preserved chest expansion. Abdomen: Soft, nontender, nondistended with good bowel sounds heard. No clinical organomegaly. Renal: There is no costovertebral angle tenderness. Extremities: Without cyanosis, clubbing or edema. Preserved ROM. Neurological: Gross nonfocal. Patient oriented x 3. Cranial nerves II - XII Grossly intact. DTRs +2. MS: 5/5 globally. Genital: scrotal redness, penile swelling, suprapubic catheter in place Labs/Imaging: all pertinent labs and diagnostic imaging were reviewed Assessment/Plan #Penile implant infection #Scrotal cellulitis - ESBL Klebsiella on [facility] cultures; sensitivities had not yet been finalized - Dr Branch consulted, appreciate assistance - agree with meropenem; agree that his implant likely needs to be removed #Urinary retention 2/2 penile implant infection - Dr Ashby took patient to OR for suprapubic cather placement today - urinary retention will likely resolved after his penile swelling and infection improves #HTN - BP improved - continue metoprolol - continue nifedipine 30mg daily (started this admission) - will avoid starting ACEi/ARB given renal function #T2DM - Humalog sliding scale started - start basal insulin tonight with glarine 10u #Prior history of ESRD s/p renal transplant 2012 not on HD #CKD, likely stage 3 - avoid nephrotoxic agents - continue immunosuppressive medications: Tacrolimus and Mycophenolate - Dr Vyas consulted, appreciate assistance #HLD - pravastatin Thank you for allowing me to assist in the care of your patient. I will follow along with you for the duration of their stay. Albin Andrade MD Internal Medicine
--- NOTE | 2020-08-12 18:09 | NUR ---
Addendum to IM consult note: This is in addition to plan in IM Consult note on 08/12 Patient has bilateral pitting edema with enlarged cardiac silhouette on CXR, no prior hx of heart failure is apparent to me. Will assess with echocardiogram. Albin Andrade
--- NOTE | 2020-08-12 19:03 | NUR ---
PATIENT IS IN STABLE CONDITION WITH NO S/S OF RESPIRATORY DISTRESS. NO PAIN VOICED. SUPRAPUBIC INTACT AND DRAINING TO SMALL BAG. PENIS/SCROTUM AREA ELEVATED. AIR PUMP PLACED ON PATIENT; BED ALARM APPLIED. CALL LIGHT IS WITHIN REACH, PATIENT INSTRUCTED TO CALL FOR ASSISTANCE NEEDED. BEDSIDE SHIFT REPORT GIVEN TO ONCOMING NURSE.
[2020-08-12] MEDS: INSULIN GLARGINE 100 UNITS/ML VIAL SQ SCH (20:48)
[2020-08-12] MEDS ORDERED: INSULIN GLARGINE 100 UNITS/ML VIAL SQ SCH (21:00)
[2020-08-12] MEDS: PRAVASTATIN 20 MG TAB PO SCH (21:11)
--- NOTE | 2020-08-12 23:32 | NUR ---
Resumed care of patient. Patient resting quietly in bed, respirations even and unlabored on room air, no s/s of distress at this time. Bed locked and in lowest position, side rails upx3, alarm on, call light placed within reach. All safety measures in place.
[2020-08-13] VITALS (10 sets, daily range): BP systolic 118–202; BP diastolic 52–75
--- NOTE | 2020-08-13 00:39 | History and Physical ---
HISTORY: This is a 45-year-old male, who comes to the hospital after having undergone a penile implant. The patient has been impotent for a number of years. He is a type 1 diabetic. The patient has had a long history of impotence. When the Breo start working, he started using injections and the injection also stopped working. He was left with just having a penile implant. His decision was to go ahead with a penile implant since he has a live-in partner, who was active and he wanted to make sure that his partner stayed with him. He underwent the penile implant semi-rigid on July 30. He was examined by Dr. Henderson after the surgery in his office. At that time, there was typical pain postop, but there was no hematoma and no cellulitis. The patient several days later complained of an increased pain and he went to an emergency room close to his house where he was examined and a CT scan was done. The CT scan does show generalized inflammation of the perineum and the suprapubic area. It shows to have the implants in the appropriate place in the corpora cavernosum. There did not have any air in the penis or in the subcutaneous tissue. On physical examination, the patient did have cellulitis with swelling. The patient was transferred to [facility], where I admit him to the hospital for Dr. Henderson. PAST MEDICAL HISTORY: Type 1 diabetic and a renal transplant. Of interest again is his renal transplant was done in 2012 with a cadaveric transplant and he has done well with it. PAST SURGICAL HISTORY: He has had two toes amputated on the left leg and he had his right eye removed because of infections due to type 1 diabetes. He has been legally blind out of the left eye for the last 10 years. SOCIAL HISTORY: He has a partner. He has lived with for 10 years. He never had any children. He does not smoke and does not drink. ALLERGIES: PENICILLIN. MEDICATIONS: He takes gabapentin 100 mg daily, metoprolol tartrate 25 mg daily, paroxetine 20 mg daily, tacrolimus 2 mg daily, sodium bicarbonate 1300 mg twice daily. He takes insulin subcutaneous morning and evening. Albuterol every 4 hours as needed, ondansetron 4 mg as needed as well. Hospital medications: He is just on meropenem at this time. PHYSICAL EXAMINATION: On examination, upon admission, his penis was quite swollen, his scrotum was quite swollen. The area around the suprapubic area was hard and tender. There were areas where there was ecchymosis underneath the skin. There was also ecchymosis of the scrotum. Rectal examination, 25-30 g prostate. There was tenderness and fullness on the perineum on rectal examination as well. There were no hernias present. CT scan did show a right lower quadrant kidney, no hydronephrosis, no stones. The patient also on CT scan had a full bladder. I discussed urination with the patient. The patient stated that he was urinating well. RECOMMENDATIONS: We will admit the patient to the hospital, give him IV antibiotics. Consult Infectious Disease, Dr. Branch. Consult Nephrology, Dr. Vyas, and I will follow the patient with him while he remains in the hospital. I too discussed with the patient that I will be getting postvoid residuals on him because of the CT scan showed a very large distended bladder. We will address that issue while he is in the hospital. Dictated by Armando Ashby MD Lambert Henderson MD RRG/MODL /[id number]
[2020-08-13] MEDS: HYDROCODONE/APAP 10MG-325MG TAB PO PRN ×3 (01:06→16:47)
[2020-08-13] MEDS: MYCOPHENOLATE SODIUM 360 MG PO SCH ×2 (06:09→16:29)
[2020-08-13] MEDS: TACROLIMUS 1 MG CAP PO SCH ×2 (06:09→16:29)
[2020-08-13 06:14] LABS: BASOPHILS % 0.2 % (0.0-1.0); EOSINOPHILS # (AUTO) 0.1 (0.0-0.4); EOSINOPHILS % 1.8 % (0.0-6.0); HEMATOCRIT 33.5 % (38.2-49.6); HEMOGLOBIN 10.7 g/dL (14.0-18.0); LYMPHOCYTES # (AUTO) 0.9 (1.0-3.2); LYMPHOCYTES % 13.6 % (18.0-39.1); MEAN CORPUSCULAR HEMOGLOBIN 28.9 pg (28-32); MEAN CORPUSCULAR HGB CONC 31.9 g/dL (31-35); MEAN CORPUSCULAR VOLUME 90.5 fL (81-99); MONOCYTES # (AUTO) 0.7 (0.2-0.8); MONOCYTES % 11.1 % (4.4-11.3); NEUTROPHILS # (AUTO) 4.8 (2.1-6.9); NEUTROPHILS % 72.5 % (38.7-80.0); PLATELET COUNT 131 x10e3/uL (140-360); RED CELL DISTRIBUTION WIDTH 13.2 % (11.7-14.4)
[2020-08-13 06:40] LABS: ANION GAP 12.9 mmol/L (8-16); CALCIUM 8.3 mg/dL (8.4-10.2); CREATININE, SERUM 1.79 mg/dL (0.72-1.25); POTASSIUM 4.9 mmol/L (3.5-5.1)
[2020-08-13 06:50] LABS: CALCIUM IONIZED 1.2 mmol/L (1.09-1.30)
[2020-08-13 06:59] LABS: PHOSPHORUS 3.1 MG/DL (2.3-4.7)
--- NOTE | 2020-08-13 07:08 | NUR ---
Bedside shift report given to oncoming nurse. Patient resting quietly in bed, respirations even and unlabored on room air, no s/s of distress at this time. All safety measures in place.
[2020-08-13] MEDS: PAROXETINE HCL 20 MG TAB PO SCH (08:12)
[2020-08-13] MEDS: SODIUM BICARBONATE 650 MG TAB PO SCH ×3 (08:12→21:00)
[2020-08-13] MEDS: ASPIRIN 81 MG CHEW TAB PO SCH (08:12)
[2020-08-13] MEDS: GABAPENTIN 100 MG CAP PO SCH (08:12)
[2020-08-13] MEDS: INSULIN LISPRO 100 UNIT/1 ML 3ML VIAL SQ SCH ×4 (08:28→20:49)
--- NOTE | 2020-08-13 08:40 | Progress Note ---
DATE: The patient was seen and evaluated. Available labs and notes reviewed. Radiology in the room trying to get a cardiac echo. REVIEW OF SYSTEMS: No nausea, vomiting, fever, chills, chest pain, or shortness of breath. The scrotal pain is tolerable. The patient is hard in hearing. MEDICATIONS: Medication list reviewed. From ID point of view, the patient is on meropenem. LABORATORY STUDIES: White count 6.64, hemoglobin 10.7, platelet 131. Sodium 134, potassium 4.9, creatinine 1.79. MICROBIOLOGY: Urine culture negative, 48 hours. RADIOLOGY STUDIES: Status post suprapubic placement. PHYSICAL EXAMINATION: VITAL SIGNS: Temperature 98.1, pulse is 71, respirations 17, blood pressure 168/65. The patient is afebrile since 08/10/2020 at 16:34. GENERAL: Awake and alert, hard in hearing. No acute distress. CVS: S1, S2. CHEST: Equal expansion. Clear to auscultation. ABDOMEN: Soft, obese, nontender. HEENT: Moist. No pallor. NECK: No JVD. EXTREMITIES: Weak. GENITALIA: Scrotum slightly pink, nontender with some discomfort. ASSESSMENT AND PLAN: 1. Scrotal cellulitis. 2. Penile implant. 3. Diabetes. 4. Suprapubic catheter. 5. History of ESBL in the urine. Vancomycin IV. Continue with meropenem. The patient at risk for removal of penile implant. Further management of this patient based on daily findings on laboratory and physical examination. Discussed with Dr. Branch. Please refer to chart for more information. Dictated by Joe Villela PA-C (Al) Kimberly Branch MD /MODL /[id number]
[2020-08-13] MEDS: METOPROLOL TARTRATE 25 MG TAB PO SCH (09:11)
[2020-08-13] MEDS: NIFEDIPINE CR 30 MG TAB PO SCH (09:11)
--- NOTE | 2020-08-13 10:30 | Progress Note ---
DATE: Today, the patient is afebrile. Suprapubic tube draining clear urine. Penis appears to be less swollen than he was yesterday. The scrotum is still somewhat swollen. The patient has good appetite. He states his pain is less today. I am going to give him a voiding trial tomorrow as my plan, and see if he can urinate, now that the swelling is down, but he needs to not only urinate, but empty his bladder. MD JONATHAN Yeboah/MODL /[id number]
--- NOTE | 2020-08-13 10:31 | NUR ---
IM Consultation Subjective 08/13: was hypertensive early this AM however recheck 10 minutes later was within normal range, could be the wrong BP Cuff size was being used; patient has no complaints at this time. Plan for today per urology is to clamp the supra pubic catheter and assess for ability to void on his own. I have obtained the sensitivities for ESBL Klebsiella in the urine from [facility], susceptibilities listed in plan below. 08/12: doing well today, states he is not in much pain. BP is improved after starting procardia. 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 Patient had penile implant 07/30/20 at [facility] and reportedly was healing well after surgery. He then began to develop pain and swelling around his penis and testicles, was prescribed a course of antibiotics by Dr Wagoner which patient didn't take. His pain became uncontrollable and presented to [facility] where he was admitted, cultures demonstrated ESBL Klebsiella and was started on Vancomycin and Gentamicin. Decision was made to transfer to [facility] for further management. Here at [facility] he is being managed by Dr Ashby (Urology), Dr Branch (ID), and Dr Vyas (Nephrology). He is being treated with Meropenem and Vancomycin, however vancomycin has since been stopped once it was realized cultures showed ESBL Klebsiella. Internal medicine consulted for management of his chronic medical conditions. Physical Exam Vitals: Temp: 98.7P: 66BP: 131/59RR: 18SpO2: 98% General Appearance: The patient is alert, oriented and in no acute distress. Appears euvolemic. Skin: Warm and hydrated without any rash. HEENT: Head is normocephalic, atraumatic. Nontender sinuses. +cataracts; +total blindness in both eyes. The nares are patent. Oropharynx is moist and clear without lesions. Neck: Supple without lymphadenopathy. No JVD. 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 Normal S1 and S2 without S3/S4. No murmurs, rubs or gallops. Peripheral pulses symmetric +2. Respiratory / Chest: No crackles or wheezes are heard. Symmetric breath sounds. Preserved chest expansion. Abdomen: Soft, nontender, nondistended with good bowel sounds heard. No clinical organomegaly. Renal: There is no costovertebral angle tenderness. Extremities: Without cyanosis, clubbing or edema. Preserved ROM. 2+ pitting edema bilateral lower extremities Neurological: Gross nonfocal. Patient oriented x 3. Cranial nerves II - XII Grossly intact. DTRs +2. MS: 5/5 globally. Genital: scrotal redness, penile swelling, suprapubic catheter in place Labs/Imaging: all pertinent labs and diagnostic imaging were reviewed Assessment/Plan #Penile implant infection #Scrotal cellulitis #ESBL Klebsiella - ESBL Klebsiella on [facility] cultures; sensitivities had not yet been finalized - Dr Branch consulted, appreciate assistance - agree with meropenem; agree that his implant likely needs to be removed - sensitivities obtained from [facility] - ESBL Klebsiella =susceptible to Amikacin, Ertapenem, Gentamicin, Meropenem, Pip/Tazo (borderline CONCEPCION 16/4), Tigecycline. =Intermediate to Tobramycin. =Resistant to cipro, cephalosporins, and bactrim. #Bilateral lower extremity pitting edema = DDX: CKD vs nephropathy vs CHF (diastolic vs systolic) - TTE performed, pending read - BNP elevated to 240 #Urinary retention 2/2 penile implant infection - Dr Ashby took patient to OR for suprapubic cather placement today - urinary retention will likely resolved after his penile swelling and infection improves #HTN - BP improved - continue metoprolol - continue nifedipine 30mg daily (started this admission) - will avoid starting ACEi/ARB given renal function #T2DM - Humalog sliding scale started - 08/12 started nightly glarine 10u basal insulin #Prior history of ESRD s/p renal transplant 2012 not on HD #CKD, likely stage 3 - avoid nephrotoxic agents - continue immunosuppressive medications: Tacrolimus and Mycophenolate - Dr Vyas consulted, appreciate assistance #HLD - pravastatin Thank you for allowing me to assist in the care of your patient. I will follow along with you for the duration of their stay. Albin Andrade MD Internal Medicine
[2020-08-13] MEDS: MEROPENEM 1GM 100 ML IV SCH (16:29)
[2020-08-13] MEDS: INSULIN GLARGINE 100 UNITS/ML VIAL SQ SCH (20:49)
[2020-08-13] MEDS: PRAVASTATIN 20 MG TAB PO SCH (21:00)
[2020-08-13] MEDS: HYDROMORPHONE 1MG/1ML INJ IV PRN (23:36)
[2020-08-14] VITALS (7 sets, daily range): BP systolic 126–174; BP diastolic 44–80
--- NOTE | 2020-08-14 00:13 | Progress Note ---
DATE: 08/12/2020 SUBJECTIVE: Mr. Gilman is lying in bed, comfortable. There are no new complaints. PHYSICAL EXAMINATION: GENERAL: He is currently alert, oriented. VITAL SIGNS: Stable, currently afebrile. HEENT: Not icteric. NECK: Supple. CHEST: Clear. HEART: Soft. LABORATORY DATA: His white count down to 7.28, his hemoglobin of 10. His sodium 133, potassium 5.1, creatinine 0.8. Cultures, urine culture is negative. IMPRESSION: 1. Scrotal cellulitis. 2. Legally blind. 3. Status post penile implant infected. 4. Chronic kidney disease, stage 3, cadaver renal transplant, currently on meropenem. We will follow. MD SRINIVASAN Martins/MODL /[id number]
[2020-08-14 05:45] LABS: BASOPHILS % 0.1 % (0.0-1.0); EOSINOPHILS # (AUTO) 0.1 (0.0-0.4); EOSINOPHILS % 1.5 % (0.0-6.0); HEMATOCRIT 32.5 % (38.2-49.6); HEMOGLOBIN 10.5 g/dL (14.0-18.0); MEAN CORPUSCULAR HEMOGLOBIN 29.1 pg (28-32); MEAN CORPUSCULAR HGB CONC 32.3 g/dL (31-35); MONOCYTES # (AUTO) 0.7 (0.2-0.8); MONOCYTES % 8.9 % (4.4-11.3); NEUTROPHILS # (AUTO) 6.2 (2.1-6.9); NEUTROPHILS % 76.6 % (38.7-80.0); PLATELET COUNT 144 x10e3/uL (140-360); RED BLOOD COUNT 3.61 x10e6/uL (4.3-5.7); RED CELL DISTRIBUTION WIDTH 12.8 % (11.7-14.4)
[2020-08-14 06:06] LABS: ANION GAP 14.8 mmol/L (8-16); CALCIUM 8.4 mg/dL (8.4-10.2); CREATININE, SERUM 1.58 mg/dL (0.72-1.25); POTASSIUM 4.8 mmol/L (3.5-5.1)
[2020-08-14] MEDS: TACROLIMUS 1 MG CAP PO SCH ×2 (06:11→17:12)
[2020-08-14] MEDS: MYCOPHENOLATE SODIUM 360 MG PO SCH ×2 (06:11→17:11)
--- NOTE | 2020-08-14 06:44 | Progress Note ---
DATE: SUBJECTIVE: The patient is seen and evaluated. Available labs and notes reviewed. Discussed with the nurse, uneventful night. REVIEW OF SYSTEMS: Pain is controlled. No nausea, vomiting, fever, chills, headache, rash, or dysuria. The patient's output per my discussion with the staff is very good as far as voiding. MEDICATIONS: Medication list reviewed. From ID point of view, the patient is on meropenem. LABORATORY STUDIES: White count 8.11, hemoglobin 10.5, platelets 144. Sodium 134, potassium 4.8, creatinine 1.58. MICROBIOLOGY: Urine culture negative on 08/10/2020. RADIOLOGY STUDIES: No new radiology studies available. OBJECTIVE: VITAL SIGNS: Temperature 98.1, pulse 76, respiration 18, blood pressure 153/72. GENERAL: Awake and alert, in no acute distress. CV: S1 and S2. CHEST: Equal expansion. Clear to auscultation. No acute distress. ABDOMEN: Soft, obese, nontender. HEENT: Moist. No pallor. No JVD. EXTREMITIES: Weak. GENITOURINARY: Suprapubic catheter seen and seems to be functional. Scrotum is not as tight and swollen as it was yesterday. ASSESSMENT AND PLAN: 1. Scrotal cellulitis. 2. Penile implant. 3. Suprapubic catheter placement. ESBL of the urine. We did recheck urine culture here on 08/10/2020, negative. Status post vancomycin IV. Currently on meropenem. White count is within normal limit. Monitor renal function. Creatinine at 1.79. At risk for removal of the penile implant. Management of elevated BNP by others. Please refer to chart for more information. Dictated by Joe Villela PA-C (Al) Kimberly Branch MD /MODL /[id number]
[2020-08-14] MEDS: ASPIRIN 81 MG CHEW TAB PO SCH (08:42)
[2020-08-14] MEDS: GABAPENTIN 100 MG CAP PO SCH (08:42)
[2020-08-14] MEDS: METOPROLOL TARTRATE 25 MG TAB PO SCH ×2 (08:42→21:00)
[2020-08-14] MEDS: SODIUM BICARBONATE 650 MG TAB PO SCH ×3 (08:43→22:42)
[2020-08-14] MEDS: PAROXETINE HCL 20 MG TAB PO SCH (08:43)
[2020-08-14] MEDS: NIFEDIPINE CR 30 MG TAB PO SCH (08:43)
[2020-08-14] MEDS: INSULIN LISPRO 100 UNIT/1 ML 3ML VIAL SQ SCH ×4 (10:14→21:00)
--- NOTE | 2020-08-14 13:42 | NUR ---
IM Consultation Subjective 08/14: Doing well today, his suprapubic catheter is clamped to attempt a voiding trial to see if it can be removed. Continue Meropenem per ID. TTE with low-normal EF, no obvious evidence of diastolic dysfunction but has mild LV concentric hypertrophy and moderate pulm HTN. 08/13: was hypertensive early this AM however recheck 10 minutes later was within normal range, could be the wrong BP Cuff size was being used; patient has no complaints at this time. Plan for today per urology is to clamp the supra pubic catheter and assess for ability to void on his own. I have obtained the sensitivities for ESBL Klebsiella in the urine from [facility], susceptibilities listed in plan below. 08/12: doing well today, states he is not in much pain. BP is improved after starting procardia. 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 Patient had penile implant 07/30/20 at [facility] and reportedly was healing well after surgery. He then began to develop pain and swelling around his penis and testicles, was prescribed a course of antibiotics by Dr Wagoner which patient didn't take. His pain became uncontrollable and presented to [facility] where he was admitted, cultures demonstrated ESBL Klebsiella and was started on Vancomycin and Gentamicin. Decision was made to transfer to [facility] for further management. Here at [facility] he is being managed by Dr Ashby (Urology), Dr Branch (ID), and Dr Vyas (Nephrology). He is being treated with Meropenem and Vancomycin, however vancomycin has since been stopped once it was realized cultures showed ESBL Klebsiella. Internal medicine consulted for management of his chronic medical conditions. Physical Exam Vitals: Temp: 98.2P: 72BP: 151/70RR: 16SpO2: 97% General Appearance: The patient is alert, oriented and in no acute distress. Appears euvolemic. Skin: Warm and hydrated without any rash. HEENT: Head is normocephalic, atraumatic. Nontender sinuses. +cataracts; +total blindness in both eyes. The nares are patent. Oropharynx is moist and clear without lesions. Neck: Supple without lymphadenopathy. No JVD. Thyroid NV/SURVEYOR GEOPHYSICAL PROSPECTING Heart / Cardiovascular: Regular rate and rhythm. Normal S1 and S2 without S3/S4. No murmurs, rubs or gallops. Peripheral pulses symmetric +2. Respiratory / Chest: No crackles or wheezes are heard. Symmetric breath sounds. Preserved chest expansion. Abdomen: Soft, nontender, nondistended with good bowel sounds heard. No clinical organomegaly. Renal: There is no costovertebral angle tenderness. Extremities: Without cyanosis, clubbing or edema. Preserved ROM. 2+ pitting edema bilateral lower extremities Neurological: Gross nonfocal. Patient oriented x 3. Cranial nerves II - XII Grossly intact. DTRs +2. MS: 5/5 globally. Genital: scrotal redness, penile swelling, suprapubic catheter in place Labs/Imaging: all pertinent labs and diagnostic imaging were reviewed Assessment/Plan #Penile implant infection #Scrotal cellulitis #ESBL Klebsiella - ESBL Klebsiella on [facility] cultures; sensitivities had not yet been finalized - Dr Branch consulted, appreciate assistance - agree with meropenem; agree that his implant likely needs to be removed - sensitivities obtained from [facility] - ESBL Klebsiella =susceptible to Amikacin, Ertapenem, Gentamicin, Meropenem, Pip/Tazo (borderline CONCEPCION 16/4), Tigecycline. =Intermediate to Tobramycin. =Resistant to cipro, cephalosporins, and bactrim. #Moderate Pulmonary Hypertension #Bilateral lower extremity pitting edema = DDX: CKD vs nephropathy vs CHF (diastolic vs systolic) - TTE with low-normal EF 50-55% and mild LV concentric hypertrophy with no evidence of diastolic dysfunction; has moderate pulm HTN however - BNP elevated to 240 - for now, no need for diuretics unless renal is in agreement to a low dose lasix (around 20mg daily) #Urinary retention 2/2 penile implant infection - Dr Ashby took patient to OR for suprapubic cather placement today - urinary retention will likely resolved after his penile swelling and infection improves #HTN - BP improved but still elevated - continue metoprolol tartrate, switched to q12h instead of daily (tartrate is not 24hr duration) - continue nifedipine (started this admission); will increase to 60mg daily on 08/15 - will avoid starting ACEi/ARB given renal function #T2DM - Humalog sliding scale started - 08/12 started nightly glargine 10u basal insulin #Prior history of ESRD s/p renal transplant 2012 not on HD #CKD, likely stage 3 - avoid nephrotoxic agents - continue immunosuppressive medications: Tacrolimus and Mycophenolate - Dr Vyas consulted, appreciate assistance #HLD - pravastatin Thank you for allowing me to assist in the care of your patient. I will follow along with you for the duration of their stay. Albin Andrade MD Internal Medicine
--- NOTE | 2020-08-14 13:50 | Progress Note ---
DATE: 08/14/2020 SUBJECTIVE: Today, the patient is afebrile, tolerating diet well and he is in much less pain. The patient today looks better, not only the scrotum but the penis, and now we can see discoloration of the penis, as the hematoma is resolving and being reabsorbed. Today, I am clamping the suprapubic tube, given him a voiding trial, and the nurse will call me with the results of the postvoid residual. PLAN: Continue on antibiotics. MD JONATHAN Yeboah/MODL /[id number]
--- NOTE | 2020-08-14 14:12 | NUR ---
DR. GARBER APPLIED STOP VALVE TO SUPRAPUBIC CATHETER. PATIENT IS TO VOID INTO URINAL, THEN NURSING TO DRAIN ANY REMAINING URINE FROM BLADDER INTO SUPRAPUBIC BAG, THEN TURN OFF VALVE AGAIN. PATIENT AWARE AND VERBALIZED UNDERSTANDING
[2020-08-14] MEDS ORDERED: ONDANSETRON HCL 4 MG ORAL DISINTEGRATING TAB PO PRN (16:00)
[2020-08-14] MEDS: MEROPENEM 1GM 100 ML IV SCH (17:10)
[2020-08-14] MEDS: INSULIN GLARGINE 100 UNITS/ML VIAL SQ SCH (21:00)
[2020-08-14] MEDS: HYDROMORPHONE 1MG/1ML INJ IV PRN (21:00)
[2020-08-14] MEDS: PRAVASTATIN 20 MG TAB PO SCH (22:42)
[2020-08-15] VITALS (8 sets, daily range): BP systolic 111–177; BP diastolic 56–76
[2020-08-15] MEDS: MYCOPHENOLATE SODIUM 360 MG PO SCH ×2 (05:36→17:06)
[2020-08-15] MEDS: TACROLIMUS 1 MG CAP PO SCH ×2 (05:36→17:06)
[2020-08-15 06:54] LABS: BASOPHILS % 0.1 % (0.0-1.0); EOSINOPHILS # (AUTO) 0.1 (0.0-0.4); EOSINOPHILS % 1.2 % (0.0-6.0); HEMATOCRIT 33.9 % (38.2-49.6); HEMOGLOBIN 10.9 g/dL (14.0-18.0); LYMPHOCYTES # (AUTO) 0.9 (1.0-3.2); LYMPHOCYTES % 10.2 % (18.0-39.1); MEAN CORPUSCULAR HEMOGLOBIN 28.9 pg (28-32); MEAN CORPUSCULAR HGB CONC 32.2 g/dL (31-35); MEAN CORPUSCULAR VOLUME 89.9 fL (81-99); MONOCYTES # (AUTO) 0.7 (0.2-0.8); MONOCYTES % 7.3 % (4.4-11.3); NEUTROPHILS # (AUTO) 7.2 (2.1-6.9); NEUTROPHILS % 80.3 % (38.7-80.0); PLATELET COUNT 173 x10e3/uL (140-360); RED BLOOD COUNT 3.77 x10e6/uL (4.3-5.7); RED CELL DISTRIBUTION WIDTH 12.8 % (11.7-14.4)
[2020-08-15 06:57] LABS: CALCIUM IONIZED 1.2 mmol/L (1.09-1.30)
--- NOTE | 2020-08-15 07:00 | NUR ---
Received patient resting in bed no s/s of distress. Bed low, wheels locked, side rails x2. Call light in reach will continue to monitor patient.
[2020-08-15 07:10] LABS: ANION GAP 13.5 mmol/L (8-16); CALCIUM 8.6 mg/dL (8.4-10.2); CREATININE, SERUM 1.64 mg/dL (0.72-1.25); MAGNESIUM 1.9 MG/DL (1.3-2.1); POTASSIUM 5.5 mmol/L (3.5-5.1)
[2020-08-15] MEDS: INSULIN LISPRO 100 UNIT/1 ML 3ML VIAL SQ SCH ×4 (07:30→21:04)
--- NOTE | 2020-08-15 07:37 | NUR ---
Paged Dr. Vyas regarding abnormal lab results.
[2020-08-15] MEDS: NIFEDIPINE CR 30 MG TAB PO SCH (08:19)
[2020-08-15] MEDS: GABAPENTIN 100 MG CAP PO SCH (08:19)
[2020-08-15] MEDS: PAROXETINE HCL 20 MG TAB PO SCH (08:19)
[2020-08-15] MEDS: SODIUM BICARBONATE 650 MG TAB PO SCH ×3 (08:19→21:02)
[2020-08-15] MEDS: ASPIRIN 81 MG CHEW TAB PO SCH (08:19)
[2020-08-15] MEDS: METOPROLOL TARTRATE 25 MG TAB PO SCH ×2 (08:19→21:02)
[2020-08-15] MEDS: HYDROCODONE/APAP 10MG-325MG TAB PO PRN ×2 (08:24→16:37)
[2020-08-15] MEDS ORDERED: SOD POLYSTYRENE SULFONATE SUSP 15 GM/60 ML BTL PO NR (11:00)
[2020-08-15] MEDS ORDERED: SOD POLYSTYRENE SULFONATE SUSP 15 GM/60 ML BTL PO ONE (11:45)
[2020-08-15] MEDS: HYDROMORPHONE 1MG/1ML INJ IV PRN ×2 (11:56→20:01)
--- NOTE | 2020-08-15 12:48 | Progress Note ---
DATE: 08/15/2020 Nephrology Followup Note SUBJECTIVE: The patient was sleeping comfortably in no acute distress. I's and O's, 400 in and 1250 out. OBJECTIVE: VITAL SIGNS: Blood pressure 162/67, respirations 20, heart rate 64, temperature 98.5. EXTREMITIES: There was no edema noted. The patient was sleeping. LABORATORY DATA: Sodium 132, potassium 5.5, chloride 98, CO2 of 26, BUN 27, creatinine 7.6, and it was 1.6 yesterday as well. White cell count 8.9, hemoglobin 10.9, hematocrit 33.9, platelets 173, all stable. IMPRESSION: 1. Chronic kidney disease stage 3 with stable serum creatinine and metabolic profile. 2. Mild hyperkalemia. PLAN: BMP later today and in the morning, I gave 30 g of Kayexalate p.o. one dose now. No acute indication for dialysis. Further recommendations to follow. Joyce Tang MD SA/SHADY /[id number]
--- NOTE | 2020-08-15 14:02 | NUR ---
SPOKE WITH DR. GARBER. POST VOID RESIDUAL GIVEN. NEW ORDER TO LEAVE SUPRAPUBIC CATH OPEN. NEW ORDERS IMPLEMENTED.
--- NOTE | 2020-08-15 16:00 | NUR ---
CARE RESUMED FROM DAY SHIFT RN. PT AAOX3. EDUCATED PT ABOUT FALL PRECAUTIONS. CALL LIGHT WITH IN EASY REACH. INSTRUCTED PT TO USE CALL LIGHT FOR ALL THE NEEDS. PT VERBALIZED UNDERSTANDING. BED IS LOW AND LOCKED. SIDE RAILS X2. BED ALARM IS ON. SUPRA PUBIC CATHETER OPEN PER DR. GARBER PER THE REPORT. PT DENIES NEEDS AT THIS TIME.
--- NOTE | 2020-08-15 16:06 | NUR ---
Report given to Bernabe ADAMS
[2020-08-15] MEDS: MEROPENEM 1GM 100 ML IV SCH (16:19)
[2020-08-15 16:42] LABS: ANION GAP 14.5 mmol/L (8-16); CALCIUM 8.5 mg/dL (8.4-10.2); CREATININE, SERUM 2.02 mg/dL (0.72-1.25); POTASSIUM 4.5 mmol/L (3.5-5.1)
--- NOTE | 2020-08-15 18:50 | NUR ---
BEDSIDE SHIFT REPORT GIVEN TO THE ACCOUNTANT HELPER RN. PT DENIED FURTHER NEEDS.
--- NOTE | 2020-08-15 19:31 | NUR ---
INFECTIOUS DISEASE PROGRESS NOTE DR. ANTONY KEATING SUBJECTIVE: The patient is seen and evaluated. Available labs and notes reviewed. Discussed with the nurse, uneventful night. REVIEW OF SYSTEMS: Pain is controlled. No nausea, vomiting, fever, chills, headache, rash, or dysuria. The patient's output per my discussion with the staff is very good as far as voiding. MEDICATIONS: Medication list reviewed. From ID point of view, the patient is on meropenem. LABORATORY STUDIES: White count 8.11, hemoglobin 10.5, platelets 144. Sodium 134, potassium 4.8, creatinine 1.58. MICROBIOLOGY: Urine culture negative on 08/10/2020. RADIOLOGY STUDIES: No new radiology studies available. OBJECTIVE: VITAL SIGNS: per chart GENERAL: Awake and alert, in no acute distress. CV: S1 and S2. no s3, s4 CHEST: Equal expansion. Clear to auscultation. No acute distress. ABDOMEN: Soft, obese, nontender. HEENT: Moist. No pallor. No JVD. EXTREMITIES: Weak. GENITOURINARY: Suprapubic catheter seen and seems to be functional. Scrotum is not as tight and swollen as it was yesterday. ASSESSMENT AND PLAN: 1. Scrotal cellulitis. 2. Penile implant. 3. Suprapubic catheter placement. 7 days of Deric Keating M.D.
[2020-08-15] MEDS: PRAVASTATIN 20 MG TAB PO SCH (21:02)
--- NOTE | 2020-08-15 21:02 | NUR ---
bp rechecked 151/69 mmhg.
[2020-08-15] MEDS: INSULIN GLARGINE 100 UNITS/ML VIAL SQ SCH (21:04)
[2020-08-16] VITALS (8 sets, daily range): BP systolic 102–169; BP diastolic 49–74
[2020-08-16] MEDS: HYDROMORPHONE 1MG/1ML INJ IV PRN ×5 (00:53→20:25)
[2020-08-16] MEDS: MYCOPHENOLATE SODIUM 360 MG PO SCH ×2 (05:25→17:17)
[2020-08-16] MEDS: TACROLIMUS 1 MG CAP PO SCH ×2 (05:25→17:17)
[2020-08-16 06:42] LABS: BASOPHILS % 0.2 % (0.0-1.0); EOSINOPHILS # (AUTO) 0.2 (0.0-0.4); EOSINOPHILS % 2.1 % (0.0-6.0); HEMOGLOBIN 10.7 g/dL (14.0-18.0); LYMPHOCYTES # (AUTO) 1.2 (1.0-3.2); LYMPHOCYTES % 14.3 % (18.0-39.1); MEAN CORPUSCULAR HEMOGLOBIN 29.1 pg (28-32); MEAN CORPUSCULAR HGB CONC 31.5 g/dL (31-35); MEAN CORPUSCULAR VOLUME 92.4 fL (81-99); MONOCYTES # (AUTO) 0.8 (0.2-0.8); MONOCYTES % 9.3 % (4.4-11.3); NEUTROPHILS # (AUTO) 5.9 (2.1-6.9); NEUTROPHILS % 72.9 % (38.7-80.0); PLATELET COUNT 177 x10e3/uL (140-360); RED BLOOD COUNT 3.68 x10e6/uL (4.3-5.7); RED CELL DISTRIBUTION WIDTH 12.6 % (11.7-14.4)
--- NOTE | 2020-08-16 07:00 | NUR ---
Received patient resting in bed no s/s of distress. Bed low, wheels locked, side rails x2. Call light in reach will continue to monitor patient.
[2020-08-16 07:10] LABS: ANION GAP 13.6 mmol/L (8-16); CALCIUM 8.4 mg/dL (8.4-10.2); CREATININE, SERUM 1.79 mg/dL (0.72-1.25); POTASSIUM 4.6 mmol/L (3.5-5.1)
[2020-08-16] MEDS: INSULIN LISPRO 100 UNIT/1 ML 3ML VIAL SQ SCH ×4 (07:30→21:18)
[2020-08-16] MEDS: ASPIRIN 81 MG CHEW TAB PO SCH (08:27)
[2020-08-16] MEDS: NIFEDIPINE CR 30 MG TAB PO SCH (08:28)
[2020-08-16] MEDS: PAROXETINE HCL 20 MG TAB PO SCH (08:28)
[2020-08-16] MEDS: METOPROLOL TARTRATE 25 MG TAB PO SCH ×2 (08:28→21:12)
[2020-08-16] MEDS: SODIUM BICARBONATE 650 MG TAB PO SCH ×3 (08:28→21:12)
[2020-08-16] MEDS: GABAPENTIN 100 MG CAP PO SCH (08:28)
--- NOTE | 2020-08-16 15:57 | Progress Note ---
DATE: 08/16/2020 SUBJECTIVE: Today, the patient is afebrile. Has decreased pain, but still feels pain at the base of the penis. On examination, there is no crepitation. The left hemiscrotum is normal. The right hemiscrotum still little swollen with the skin, a little swollen on the right side. There is cremasteric reflex on the left side today. There does not appear to be any pus underneath the penis. There is no redness. The patient is still in urinary retention. I have left the suprapubic tube open to drainage. Recommendation, I discussed the case with Dr. Henderson. He will take over the care of his patient tomorrow. I have discussed his case with him as well. MD JONATHAN Yeboah/MODL /[id number]
[2020-08-16] MEDS: MEROPENEM 1GM 100 ML IV SCH (16:02)
--- NOTE | 2020-08-16 19:29 | NUR ---
Call placed to Dr Henderson regarding pain medication reaching stop date. Answering answering service states MD not refrigeration engineer for hospital and advised to find another MD to cover. ( Kelley with answering service)
--- NOTE | 2020-08-16 19:34 | NUR ---
Spoke with Dr Misael Andrade regarding medication reached end date ( consult for medical management) restart medications dilaudid 1 mg IV Q 4hrs PRN pain and norco 10/325mg po Q 6 hrs PRN pain.
[2020-08-16] MEDS ORDERED: HYDROCODONE/APAP 10MG-325MG TAB PO PRN (19:45)
[2020-08-16] MEDS: PRAVASTATIN 20 MG TAB PO SCH (21:12)
[2020-08-16] MEDS: INSULIN GLARGINE 100 UNITS/ML VIAL SQ SCH (21:19)
[2020-08-17] VITALS (8 sets, daily range): BP systolic 121–167; BP diastolic 54–72
[2020-08-17] MEDS: HYDROMORPHONE 1MG/1ML INJ IV PRN ×5 (00:40→21:29)
[2020-08-17] MEDS: MYCOPHENOLATE SODIUM 360 MG PO SCH ×2 (05:35→16:37)
[2020-08-17] MEDS: TACROLIMUS 1 MG CAP PO SCH ×2 (05:35→17:21)
--- NOTE | 2020-08-17 07:15 | NUR ---
Bedside report and walking rounds completed with on coming nurse. Patient in bed with call light within reach. Bed in locked and lowest position. No issues or concerns noted. Patient updated on POC.
[2020-08-17] MEDS: INSULIN LISPRO 100 UNIT/1 ML 3ML VIAL SQ SCH ×4 (07:50→21:00)
[2020-08-17] MEDS: ASPIRIN 81 MG CHEW TAB PO SCH (08:56)
[2020-08-17] MEDS: SODIUM BICARBONATE 650 MG TAB PO SCH ×3 (08:56→21:00)
[2020-08-17] MEDS: METOPROLOL TARTRATE 25 MG TAB PO SCH ×2 (08:56→21:00)
[2020-08-17] MEDS: GABAPENTIN 100 MG CAP PO SCH (08:56)
[2020-08-17] MEDS: PAROXETINE HCL 20 MG TAB PO SCH (08:56)
[2020-08-17] MEDS: NIFEDIPINE CR 30 MG TAB PO SCH (08:56)
--- NOTE | 2020-08-17 10:49 | Progress Note ---
DATE: 08/17/2020 SUBJECTIVE: Has a suprapubic catheter. Denies any dyspnea at this time. Scrotal discomfort is improved. PHYSICAL EXAMINATION: GENERAL: Sitting up, no distress. VITAL SIGNS: Temperature 98.1, pulse 64, blood pressure 144/56. CHEST: Clear. EXTREMITIES: No edema. : With suprapubic catheter. LABORATORY DATA: Hemoglobin is 10.7. Creatinine down to 1.8 yesterday, serum CO2 of 27, sodium 133. ASSESSMENT: 1. Chronic kidney disease stage 3. 2. Acute kidney injury from obstruction is improved _underlying_ diabetic hypertensive, end-organ damage/txp 3. Minimal hyponatremia. We will follow. PLAN: A.m. labs. No emergent dialysis. We will follow along. Avoid NSAIDs. Paulino Ascencio MD VKK/MODL /[id number] MTDD
--- NOTE | 2020-08-17 15:28 | NUR ---
patient resting in bed, No distress, tolerated lunch, emptied 450cc from suprapubic catheter bag
--- NOTE | 2020-08-17 17:00 | NUR ---
Nutrition Screen Note RD Recommendation for Physician: - Add 1800 ADA to current diet Plan of Care: RD following, monitoring for tolerance and adequacy Nutrition reason for involvement: LOS Primary Diagnose(s): scrotal cellulitis s/p penile implant PMH: blindnes, DM2, HTN, obesity, ESRD, kidney transplant, CKD3 Ht: 69 in Wt: 246.19 lb BMI: 36.4 kg/m2 IBW: [address] Assessment: (08/17) 45 YOM admitted for scrotal cellulitis and infected penile implant, pt seen today for LOS. Pt reports good appetite and po intake currently and [employer]. Pt denies any wt loss, can not recall UBW. Pt denies any N/V/C/D. Chart reviewed. Labs and meds reviewed. Current Diet: Renal Malnutrition Evaluation (08/17/20) The patient does not meet criteria for a specified degree of malnutrition at this time. Will re-evaluate at follow-up as appropriate. Diet Education Needs Assessment: Diet education indicated, pt declined. Diet tolerance: tolerating po Nutrition Care Level: low Signed: Jodi Solano RD, LD, [facility]
--- NOTE | 2020-08-17 18:20 | NUR ---
IM Consultation Subjective 08/17: Did well over weekend, had episode of hyperkalemia which resolved with Kayexalate. No issues today. Still not able to void on his own and relying on suprapubic catheter. 08/14: Doing well today, his suprapubic catheter is clamped to attempt a voiding trial to see if it can be removed. Continue Meropenem per ID. TTE with low-normal EF, no obvious evidence of diastolic dysfunction but has mild LV concentric hypertrophy and moderate pulm HTN. 08/13: was hypertensive early this AM however recheck 10 minutes later was within normal range, could be the wrong BP Cuff size was being used; patient has no complaints at this time. Plan for today per urology is to clamp the supra pubic catheter and assess for ability to void on his own. I have obtained the sensitivities for ESBL Klebsiella in the urine from [facility], susceptibilities listed in plan below. 08/12: doing well today, states he is not in much pain. BP is improved after starting procardia. 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 Patient had penile implant 07/30/20 at [facility] and reportedly was healing well after surgery. He then began to develop pain and swelling around his penis and testicles, was prescribed a course of antibiotics by Dr Wagoner which patient didn't take. His pain became uncontrollable and presented to [facility] where he was admitted, cultures demonstrated ESBL Klebsiella and was started on Vancomycin and Gentamicin. Decision was made to transfer to [facility] for further management. Here at [facility] he is being managed by Dr Ashby (Urology), Dr Branch (ID), and Dr Vyas (Nephrology). He is being treated with Meropenem and Vancomycin, however vancomycin has since been stopped once it was realized cultures showed ESBL Klebsiella. Internal medicine consulted for management of his chronic medical conditions. Physical Exam Vitals: Temp: 98.0P: 64BP: 148/72RR: 18SpO2: 96% General Appearance: The patient is alert, oriented and in no acute distress. Appears euvolemic. Skin: Warm and hydrated without any rash. HEENT: Head is normocephalic, atraumatic. Nontender sinuses. +cataracts; +total blindness in both eyes. The nares are patent. Oropharynx is moist and clear without lesions. Neck: Supple without lymphadenopathy. No JVD. Thyroid NV/TRANSITION RN Heart / Cardiovascular: Regular rate and rhythm. Normal S1 and S2 without S3/S4. No murmurs, rubs or gallops. Peripheral pulses symmetric +2. Respiratory / Chest: No crackles or wheezes are heard. Symmetric breath sounds. Preserved chest expansion. Abdomen: Soft, nontender, nondistended with good bowel sounds heard. No clinical organomegaly. Renal: There is no costovertebral angle tenderness. Extremities: Without cyanosis, clubbing or edema. Preserved ROM. 2+ pitting edema bilateral lower extremities Neurological: Gross nonfocal. Patient oriented x 3. Cranial nerves II - XII Grossly intact. DTRs +2. MS: 5/5 globally. Genital: scrotal redness, penile swelling, suprapubic catheter in place Labs/Imaging: all pertinent labs and diagnostic imaging were reviewed Assessment/Plan #Penile implant infection #Scrotal cellulitis #ESBL Klebsiella - ESBL Klebsiella on [facility] cultures; sensitivities had not yet been finalized - Dr Branch consulted, appreciate assistance - agree with meropenem; agree that his implant likely needs to be removed - sensitivities obtained from [facility] - ESBL Klebsiella =susceptible to Amikacin, Ertapenem, Gentamicin, Meropenem, Pip/Tazo (borderline CONCEPCION 16/4), Tigecycline. =Intermediate to Tobramycin. =Resistant to cipro, cephalosporins, and bactrim. - overall, I think this patient can be discharged home when cleared by Urology as he can continue to receive his antibiotics with home health #Moderate Pulmonary Hypertension #Bilateral lower extremity pitting edema - likely due to his CKD - TTE with low-normal EF 50-55% and mild LV concentric hypertrophy with no evidence of diastolic dysfunction; has moderate pulm HTN however - BNP elevated to 240 - for now, no need for diuretics unless renal is in agreement to a low dose lasix (around 20mg daily) #Urinary retention 2/2 penile implant infection - still requiring suprapubic cather - urinary retention will likely resolved after his penile swelling and infection improves #HTN - BP improved but still elevated - continue metoprolol tartrate, switched to q12h instead of daily (tartrate is not 24hr duration) - continue nifedipine 60 mg daily started this admission - will avoid starting ACEi/ARB given renal function #T2DM - Humalog sliding scale started - 08/12 started nightly glargine 10u basal insulin #Prior history of ESRD s/p renal transplant 2012 not on HD #CKD, likely stage 3 - avoid nephrotoxic agents - continue immunosuppressive medications: Tacrolimus and Mycophenolate - Dr Vyas consulted, appreciate assistance #HLD - pravastatin Thank you for allowing me to assist in the care of your patient. I will follow along with you for the duration of their stay. Albin Andrade MD Internal Medicine
--- NOTE | 2020-08-17 19:21 | NUR ---
RECEIVED CHANGE OF SHIFT REPORT FROM AM NURSE. WALKING ROUNDS COMPLETED.
[2020-08-17] MEDS: PRAVASTATIN 20 MG TAB PO SCH (21:00)
[2020-08-17] MEDS: INSULIN GLARGINE 100 UNITS/ML VIAL SQ SCH (21:00)
[2020-08-17] MEDS: PROMETHAZINE 12.5MG/ NACL 0.9% 12.5 MG/50 ML BAG IV PRN (21:29)
--- NOTE | 2020-08-18 | NUR ---
Patient c/o pain received pain meds as ordered by MD. Pt has pain to strotum area. Asst to reposition in bed.Iv intact to left arm midline. BS at 99 no insulin required. Continue monitor.
[2020-08-18 00:25] VITALS: BP 123/81
[2020-08-18] MEDS: HYDROMORPHONE 1MG/1ML INJ IV PRN ×3 (03:26→12:38)
--- NOTE | 2020-08-18 05:17 | NUR ---
Patient received pain meds and resting quitly at this time.
[2020-08-18 05:46] VITALS: BP 152/64
[2020-08-18] MEDS: TACROLIMUS 1 MG CAP PO SCH (05:59)
[2020-08-18] MEDS: MYCOPHENOLATE SODIUM 360 MG PO SCH (05:59)
[2020-08-18 07:20] LABS: ANION GAP 12.7 mmol/L (8-16); CALCIUM 8.5 mg/dL (8.4-10.2); CREATININE, SERUM 1.62 mg/dL (0.72-1.25); POTASSIUM 4.7 mmol/L (3.5-5.1)
[2020-08-18 08:16] VITALS: BP 172/71
[2020-08-18] MEDS: INSULIN LISPRO 100 UNIT/1 ML 3ML VIAL SQ SCH ×2 (08:22→11:46)
[2020-08-18] MEDS: ASPIRIN 81 MG CHEW TAB PO SCH (08:23)
[2020-08-18] MEDS: PAROXETINE HCL 20 MG TAB PO SCH (08:23)
[2020-08-18] MEDS: NIFEDIPINE CR 30 MG TAB PO SCH (08:23)
[2020-08-18] MEDS: METOPROLOL TARTRATE 25 MG TAB PO SCH (08:23)
[2020-08-18] MEDS: GABAPENTIN 100 MG CAP PO SCH (08:23)
[2020-08-18] MEDS: SODIUM BICARBONATE 650 MG TAB PO SCH (08:23)
[2020-08-18 08:42] VITALS: BP 172/71
--- NOTE | 2020-08-18 09:50 | Progress Note ---
DATE: 08/18/2020 SUBJECTIVE: Still has some scrotal pain. Suprapubic catheter is draining well. Denied any nausea or vomiting. OBJECTIVE: VITAL SIGNS: Temperature is 97.5, pulse 64, blood pressure 152/64, this is the first time it has been high. EXTREMITIES: No edema. CHEST: Clear. ABDOMEN: Soft. Suprapubic catheter in place. LABORATORY DATA: CBC is stable. K 4.7, serum CO2 of 28, creatinine 1.6, BUN 31. ASSESSMENT: 1. Type 1 diabetes, end-stage renal disease, status post cadaveric transplant in roughly 2012. 2. Satisfactory GFR. 3. Ongoing immunosuppression _ with Myfortic and tacrolimus. PLAN: 1. Continue home immunosuppression regimen. 2. Continue sodium bicarbonate for metabolic acidosis reasonably, compensated. We will follow along. MD MARGARITA VargasK/TYLERL /[id number] [place]
--- NOTE | 2020-08-18 10:20 | NUR ---
INFECTIOUS DISEASE PROGRESS NOTE DR. ANTONY KEATING SUBJECTIVE: The patient is seen and evaluated. Available labs and notes reviewed. Discussed with the nurse, uneventful night. REVIEW OF SYSTEMS: Pain is controlled. No nausea, vomiting, fever, chills, headache, rash, or dysuria. The patient's output per my discussion with the staff is very good as far as voiding. MEDICATIONS: Medication list reviewed. From ID point of view, the patient is on meropenem. LABORATORY STUDIES: White count 8.11, hemoglobin 10.5, platelets 144. Sodium 134, potassium 4.8, creatinine 1.58. MICROBIOLOGY: Urine culture negative on 08/10/2020. RADIOLOGY STUDIES: No new radiology studies available. OBJECTIVE: VITAL SIGNS: per chart GENERAL: Awake and alert, in no acute distress. CV: S1 and S2. no s3, s4 CHEST: Equal expansion. Clear to auscultation. No acute distress. ABDOMEN: Soft, obese, nontender. HEENT: Moist. No pallor. No JVD. EXTREMITIES: Weak. GENITOURINARY: Suprapubic catheter seen and seems to be functional. Scrotum is not as tight and swollen as it was yesterday. ASSESSMENT AND PLAN: 1. Scrotal cellulitis. 2. Penile implant. 3. Suprapubic catheter placement. 4. s/p kidney transplant on Myfortic and Prograf s/p Merrem supportive care Antony Keating M.D.
[2020-08-18 11:37] VITALS: BP 155/62
--- NOTE | 2020-08-18 13:28 | NUR ---
PT maribel completed. Patient is able to perform bed mobility with modified independence, gait and functional transfers with supervision with his guide stick- needed supervision due to blindness and unfamiliar environment. Patient is at his baseline functional level and skilled PT services not indicated at this time. He can walk with nursing staff while in hospital. Thank you Addendum: 08/18/20 at 1332 by Poncho szymanski PT Amended: Links added.
--- NOTE | 2020-08-18 15:00 | NUR ---
IMM letter explained to pt. He verbalized understanding. States he was ready to go home and was on the phone calling for transportation. Copy given to pt. Pt is blind and requested to sign with an "X". Signed copy placed in chart.
[2020-08-18 15:56] VITALS: BP 137/45
--- NOTE | 2020-08-18 15:58 | NUR ---
IM Consultation Subjective 08/18: no events overnight, still has his suprapubic catheter in place and reportedly unable to void on his own due to swelling. Has completed meropenem. V itals stable, has been hypertensive again today on Nifedipine 60mg daily. Will increase to 90mg daily 08/17: Did well over weekend, had episode of hyperkalemia which resolved with Kayexalate. No issues today. Still not able to void on his own and relying on suprapubic catheter. 08/14: Doing well today, his suprapubic catheter is clamped to attempt a voiding trial to see if it can be removed. Continue Meropenem per ID. TTE with low-normal EF, no obvious evidence of diastolic dysfunction but has mild LV concentric hypertrophy and moderate pulm HTN. 08/13: was hypertensive early this AM however recheck 10 minutes later was within normal range, could be the wrong BP Cuff size was being used; patient has no complaints at this time. Plan for today per urology is to clamp the supra pubic catheter and assess for ability to void on his own. I have obtained the sensitivities for ESBL Klebsiella in the urine from [facility], susceptibilities listed in plan below. 08/12: doing well today, states he is not in much pain. BP is improved after starting procardia. 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 Patient had penile implant 07/30/20 at [facility] and reportedly was healing well after surgery. He then began to develop pain and swelling around his penis and testicles, was prescribed a course of antibiotics by Dr Wagoner which patient didn't take. His pain became uncontrollable and presented to [facility] where he was admitted, cultures demonstrated ESBL Klebsiella and was started on Vancomycin and Gentamicin. Decision was made to transfer to [facility] for further management. Here at [facility] he is being managed by Dr Ashby (Urology), Dr Branch (ID), and Dr Vyas (Nephrology). He is being treated with Meropenem and Vancomycin, however vancomycin has since been stopped once it was realized cultures showed ESBL Klebsiella. Internal medicine consulted for management of his chronic medical conditions. Physical Exam Vitals: Temp: 98.2P: 58BP: 155/62RR: 18SpO2: 98% General Appearance: The patient is alert, oriented and in no acute distress. Appears euvolemic. Skin: Warm and hydrated without any rash. HEENT: Head is normocephalic, atraumatic. Nontender sinuses. +cataracts; +total blindness in both eyes. The nares are patent. Oropharynx is moist and clear without lesions. Neck: Supple without lymphadenopathy. No JVD. Thyroid NV/IMPORT DISPATCHER Heart / Cardiovascular: Regular rate and rhythm. Normal S1 and S2 without S3/S4. No murmurs, rubs or gallops. Peripheral pulses symmetric +2. Respiratory / Chest: No crackles or wheezes are heard. Symmetric breath sounds. Preserved chest expansion. Abdomen: Soft, nontender, nondistended with good bowel sounds heard. No clinical organomegaly. Renal: There is no costovertebral angle tenderness. Extremities: Without cyanosis, clubbing or edema. Preserved ROM. 2+ pitting edema bilateral lower extremities Neurological: Gross nonfocal. Patient oriented x 3. Cranial nerves II - XII Grossly intact. DTRs +2. MS: 5/5 globally. Genital: scrotal redness, penile swelling, suprapubic catheter in place Labs/Imaging: all pertinent labs and diagnostic imaging were reviewed Assessment/Plan #Penile implant infection #Scrotal cellulitis #ESBL Klebsiella - ESBL Klebsiella on [facility] cultures, sensitivities in my previous progress notes - completed meropenem, ID following #Moderate Pulmonary Hypertension #Bilateral lower extremity pitting edema - likely due to his CKD - TTE with low-normal EF 50-55% and mild LV concentric hypertrophy with no evidence of diastolic dysfunction; has moderate pulm HTN however - BNP elevated to 240 - for now, no need for diuretics at this time #Urinary retention 2/2 penile implant infection - still requiring suprapubic cather - urinary retention will likely resolved after his penile swelling and infection improves #HTN - BP improved but still elevated - continue metoprolol tartrate, switched to q12h instead of daily (tartrate is not 24hr duration) - continue nifedipine 60 mg daily started this admission, increase to 90mg daily starting 08/19 - will avoid starting ACEi/ARB given renal function #T2DM - Humalog sliding scale started - 08/12 started nightly glargine 10u basal insulin #Prior history of ESRD s/p renal transplant 2012 not on HD #CKD, likely stage 3 - avoid nephrotoxic agents - continue immunosuppressive medications: Tacrolimus and Mycophenolate - Dr Vyas consulted, appreciate assistance #HLD - pravastatin Thank you for allowing me to assist in the care of your patient. I will follow along with you for the duration of their stay. Albin Andrade MD Internal Medicine
--- NOTE | 2020-08-18 17:54 | NUR ---
Patient discharged home, Alert with no distress, DC d midline, pressure dressing applied, intact. Suprapubic catheter is intact, Taxi cab is here to pick him. Per patient he have his care provider at home
[2020-08-19] MEDS ORDERED: NIFEDIPINE CR 30 MG TAB PO SCH (09:00)
== END 2020-08-18 18:46 | disposition home or self-care (01) | DRG 699 ==
LOC: MED/SURG3 14:27 → OBSVTOIN 08-11 08:51
PROVIDERS: ADMIT Urology; ATTEND Urology
PROC: 0T9B30Z Drainage of Bladder with Drainage Device, Percutaneous Approach (ICD-10-PCS; principal; 2020-08-11)
DX: T83.61XA Infection and inflammatory reaction due to implanted penile prosthesis, initial encounter (principal); E87.1 Hypo-osmolality and hyponatremia; N17.9 Acute kidney failure, unspecified; Z94.0 Kidney transplant status; D84.9 Immunodeficiency, unspecified; Z16.12 Extended spectrum beta lactamase (ESBL) resistance; N39.0 Urinary tract infection, site not specified; N25.89 Other disorders resulting from impaired renal tubular function; N18.30 Chronic kidney disease, stage 3 unspecified; N49.2 Inflammatory disorders of scrotum; I12.9 Hypertensive chronic kidney disease with stage 1 through stage 4 chronic kidney disease, or unspecified chronic kidney disease; H54.8 Legal blindness, as defined in USA; E87.5 Hyperkalemia; Z20.828 Contact with and (suspected) exposure to other viral communicable diseases
CPT/HCPCS: 36415; 51102; 71045; 76942; 80048; 80053; 82948; 83036; 83735; 83880; 84100; 84443; 85025; 85610; 87086; 93306; 96360; G0378; J0692; J0696; J1170; J1815; J2001; J2405; J2550; J3010; J3370; J7050; J7507; Q0162; Q9967

== ENCOUNTER 2020-08-23 18:01 | Emergency (ER) | payer MEDICARE, OTHER ==
[~2020-08-23] VITALS: Ht 175.3 cm; Wt 111.6 kg
[~2020-08-23 18:01] MED LIST changes: +MYFORTIC360 MG PO; +PROGRAF1 MG PO
[2020-08-23] MEDS ORDERED: CEFEPIME 1GM/NS 0.9% 50 ML 50 ML IV STA (18:53)
[2020-08-23 19:08] LABS: CLARITY,URINE HAZY (CLEAR); COLOR,URINE YELLOW (YELLOW); LEUKOCYTE ESTERASE ,URINE SMALL (NEGATIVE); NITRITE,URINE NEGATIVE (NEGATIVE); PROTEIN,URINE DIPSTICK 1+ (NEGATIVE)
[2020-08-23 19:09] LABS: BILIRUBIN,URINE NEGATIVE (NEGATIVE); KETONES,URINE NEGATIVE (NEGATIVE); URINE UROBILINOGEN 0.2 mg/dL (0.2 - 1)
[2020-08-23 19:25] LABS: AMORPHOUS SEDIMENT,URINE FEW (FEW); BACTERIA,URINE FEW /HPF; EPITHELIAL CELLS,URINE FEW /LPF; MUCUS,URINE FEW (RARE); WBC,URINE (MAN) 21-50 /HPF (0-5)
== END 2020-08-23 19:40 | disposition home or self-care (01) ==
LOC: ER 18:34
DX: N39.0 Urinary tract infection, site not specified (principal); I10 Essential (primary) hypertension; E11.8 Type 2 diabetes mellitus with unspecified complications; E78.5 Hyperlipidemia, unspecified; H54.7 Unspecified visual loss; F41.9 Anxiety disorder, unspecified
CPT/HCPCS: 81001; 99282